=== PATIENT | male | born 1945 | race African-American/Black ===

== ENCOUNTER 2017-02-08 19:50 | Emergency (ER) | payer OTHER ==
[2017-02-08 20:01] VITALS: BMI 24.3
--- NOTE | 2017-02-08 20:03 | DR.AMS ---
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 his walking was different too" - Reviewed Nurses Notes Reviewed: Yes - Source History Provided: Patient - Mode of Arrival Mode of Arrival: Ambulatory - Timing Onset of Chief Complaint: 02/08/17 Came On: Suddenly Symptoms: Unchanged Symptom Onset: Known Onset of Symptoms Start Date: 02/08/17 Onset of Symptoms Start Time: 07:45 - Duration Duration: Constant How lon Duration: Minutes - Quality Quality: denies: Decreased Alertness, Change in Behavior, Confusion, Memory Loss , Not Eating - Severity Severity: Mild - Context Recent: None History Of: CVA, Diabetes - Associated Signs and Symptoms Associated Signs and Symptoms: Slurred Speech, Other (left facial droop) PMH - PMH Past Medical History: Yes Past Medical History: Diabetes, Hypertension, Hypothyroidism, [place] Past Surgical History: Yes Surgical History: Angioplasty/Stents - Family History History of Family Medical Conditions: Yes Family Medical History: Diabetes Mellitus, Hypertension - Social History Do you use any recreational Drugs:: No Lives With: Spouse Lives Where: Home - infectious screening In the last 2 months have you had wt loss of >10#?: NO Have you had fever, night sweats or hemotysis?: No Have you traveled outside the country in the last 6 months?: No Isolation: Standard ROS - Review of Systems Constitutional: No Symptoms Reported Eyes: No Symptoms Reported ENTM: No Symptoms Reported Respiratoy: No Symptoms Reported Cardiovascular: No Symptoms Reported Gastrointestinal/Abdominal: No Symptoms Reported Genitourinary: No Symptoms Reported Neurological: Speech Problem, Other (mouth drop) Musculoskeletal: No Symptoms Reported Integumentary: No Symptoms Reported Hematologic/Lymphatic: No Symptoms Reported Endocrine: No Symptoms Reported Psychiatric: No Symptoms Reported All Other Systems: Reviewed and Negative PE - Vitals Vital Signs: Temp Pulse Pulse Resp BP BP BP 02/08/17 21:30 65 15 150/86 02/08/17 21:10 64 18 173/93 02/08/17 21:02 64 189/100 02/08/17 20:45 67 229/123 02/08/17 20:30 74 217/115 02/08/17 20:14 65 222/108 02/08/17 19:53 97.6 F 69 18 222/112 06/29/16 16:00 121/75 121/75 06/28/16 20:00 154/79 Pulse Ox 02/08/17 21:30 97 02/08/17 21:10 96 02/08/17 21:02 96 02/08/17 20:45 97 02/08/17 20:30 97 02/08/17 20:14 96 02/08/17 19:53 96 06/29/16 16:00 06/28/16 20:00 - General Limitations: No Limitations General Appearance: Alert, In No Apparent Distress - Head Head Exam: Normal Inspection - Eyes Eye exam: Normal Appearance, EOMI. negative: Scleral Icterus, Conjunctival Injection Pupils: Regular, Round: Bilateral - ENT ENT Exam: Normal Exam, Normal Oropharynx, Mucous Membranes Moist External Ear Exam: Normal External Inspection Throat Exam: Normal Inspection, Tonsillar Erythema, Tonsillomegaly - Neck Neck Exam: Normal Inspection, Full ROM, Trachea Midline - Chest Chest Inspection: Normal Inspection - Respiratory Respiratory Exam: Normal Lung Sounds Bilat. negative: Accessory Muscle Use, Respiratory Distress - Cardiovascular Cardiovascular Exam: Regular Rate - Abdominal Exam Abdominal Exam: Normal Inspection - Extremities Extremities Exam: Normal Inspection, Full ROM - Neurological Neurological Exam: Alert Speech: Expressive Aphasia Cranial Nerve Exam: Tongue Deviation: Left Abnormal Cerebellar Function: Ataxic Gait - Psychological Psychiatric Exam: Normal Mood Expanded Psychiatric Exam: negative: Poor Eye Contact, Pressured Speech, Echolalia, Psychomotor Agitation, Delusional, Paranoid, Catatonic, Mute, Perseverating, Euphoric, Restlessness, Flight of Ideas, Loose Associations, Uncooperative, Refuses to Answer, Auditory Hallucinations, Visual Hallucinations , Confabulating, Other - Skin Skin Exam: Intact, Normal Color Course - Treatment Treatment: BP lowered with IV nitro to less than 180 and diastolic less than 90 - Consultation Called: 20:52 Consultation Comments: DR. Bhatt called per family request 2054 ROR - Labs Reviewed Result Diagrams: 02/08/17 20:54 02/08/17 20:54 Laboratory: WBC 5.5 X10^3/uL (3.6-10.0) 02/08/17 20:54 RBC 4.61 X10^6/uL (4.7-6.0) L 02/08/17 20:54 Hgb 14.4 g/dL (13.5-18.0) 02/08/17 20:54 Hct 42.2 % (42.0-54.0) 02/08/17 20:54 MCV 91.6 fL (80.0-100.0) 02/08/17 20:54 MCH 31.2 pg (27.0-34.0) 02/08/17 20:54 MCHC 34.0 g/dL (33.0-35.0) 02/08/17 20:54 RDW 14.3 % (11.6-16.5) 02/08/17 20:54 Plt Count 234 X10^3/uL (150.0-450.0) 02/08/17 20:54 MPV 7.9 fL (7.4-11.0) 02/08/17 20:54 Neut % 48.4 % (42.0-75.0) 02/08/17 20:54 Lymph % 39.8 % (21.0-51.0) 02/08/17 20:54 [place] % 9.7 % (0.0-13.0) 02/08/17 20:54 Eos % 1.7 % (0.9-2.9) 02/08/17 20:54 Baso % 0.4 % (0.2-1.0) 02/08/17 20:54 Neut # 2.7 x10^3/uL (2.2-4.8) 02/08/17 20:54 Lymph # 2.2 X10^3/uL (1.3-2.9) 02/08/17 20:54 [place] # 0.5 x10^3/uL (0.3-0.8) 02/08/17 20:54 Eos # 0.1 x10^3/uL (0.0-0.2) 02/08/17 20:54 Baso # 0.0 X10^3/uL (0.0-0.1) 02/08/17 20:54 Absolute Nucleated RBC 0.1 /100WBC 02/08/17 20:54 INR Target Range - 02/08/17 21:05 INR 0.94 (0.8-1.3) 02/08/17 21:05 PTT 32.6 SECONDS (22.9-36.5) 02/08/17 21:05 PTT Comment - 02/08/17 21:05 Fibrinogen 349 mg/dL (239-489) 02/08/17 21:05 Sodium 136 mmol/L (136-145) 02/08/17 20:54 Corrected Sodium 137 mmol/L (136-145) 02/08/17 20:54 Potassium 4.9 mmol/L (3.5-5.1) 02/08/17 20:54 Chloride 104 mmol/L (98-107) 02/08/17 20:54 Carbon Dioxide 26.1 mmol/L (21-32) 02/08/17 20:54 BUN 18 mg/dL (7-18) 02/08/17 20:54 Creatinine 1.39 mg/dL (0.70-1.30) H 02/08/17 20:54 Est GFR (MDRD) Af Amer > 60 (>60) 02/08/17 20:54 Est GFR (MDRD) Non-Af 54 (>60) L 02/08/17 20:54 Glucose 123 mg/dL (65-99) H 02/08/17 20:54 Calcium 8.4 mg/dL (8.5-10.1) L 02/08/17 20:54 Corrected Calcium TNP 02/08/17 20:54 Total Bilirubin 0.50 mg/dL (0.2-1.0) 02/08/17 20:54 AST 15 Units/L (15-37) 02/08/17 20:54 ALT 36 Units/L (12-78) 02/08/17 20:54 Alkaline Phosphatase 76 Units/L (46-116) 02/08/17 20:54 Total Protein 6.9 g/dL (6.4-8.2) 02/08/17 20:54 Albumin 3.5 g/dL (3.4-5.0) 02/08/17 20:54 Globulin 3.4 g/dL (2.5-4.5) 02/08/17 20:54 Albumin/Globulin Ratio 1.0 Ratio (1.1-2.1) L 02/08/17 20:54 Triglycerides 165 mg/dL (0-150) H 02/08/17 20:54 Cholesterol 277 mg/dL (0-200) H 02/08/17 20:54 LDL Cholesterol, Calc 153 mg/dL (0-100) H 02/08/17 20:54 HDL Cholesterol 91 mg/dL (40-60) H 02/08/17 20:54 Cholesterol/HDL Ratio 3.0 (0.0-5.0) 02/08/17 20:54 Specimen Type Clean catch urine 02/08/17 21:03 Urine Color Yellow (YELLOW) 02/08/17 21:03 Urine Appearance Hazy (CLEAR) 02/08/17 21:03 Urine pH 6.5 (5.0 - 8.0) 02/08/17 21:03 Ur Specific [place] 1.015 (1.000-1.030) 02/08/17 21:03 Urine Protein 3+ (NEGATIVE) 02/08/17 21:03 Urine Glucose (UA) 1+ (NEGATIVE) 02/08/17 21:03 Urine Ketones Negative (NEGATIVE) 02/08/17 21:03 Urine Occult Blood 1+ (NEGATIVE) 02/08/17 21:03 Urine Nitrite Negative (NEGATIVE) 02/08/17 21:03 Urine Bilirubin Negative (NEGATIVE) 02/08/17 21:03 Urine Urobilinogen Normal (NORMAL) 02/08/17 21:03 Ur Leukocyte Esterase Negative (NEGATIVE) 02/08/17 21:03 Urine RBC 0-2 /HPF (NEGATIVE) 02/08/17 21:03 Urine WBC 3-5 /HPF (NEGATIVE) 02/08/17 21:03 Ur Squamous Epith Cells Negative /HPF (NEGATIVE) 02/08/17 21:03 Urine Bacteria Negative /HPF (NEGATIVE) 02/08/17 21:03 Ur Culture Indicated? No/not indicated 02/08/17 21:03 - XRAY XRAY Interpreted by: Radiologist XRAY Findings: CT haed: chronic white matter changes, no acute findings - EKG Rate: 69 [place]: LAD Rhythm: NSR Block: None Hypertrophy: LVH ST: Nonsp Procedures - Procedure Comments Procedures: REACH protocol initiated, DR. Carias neurology [facility] consulted, recommended TPA when BP less than 180/110 then transfer to [facility] ER. Dr. Avalos called and accepted patient [facility] - Diagnosis Discharge Problem: CVA (cerebral vascular accident) Qualifiers: CVA mechanism: unspecified Qualified Code(s): I63.9 - Cerebral infarction, unspecified - Discharge Plan Disposition: 05 XFER OTHER Condition: Stable - Follow ups/Referrals Follow ups/Referrals: Alexandr Bhatt [Primary Care Provider] - 3 days - Instructions
[2017-02-08] MEDS ORDERED: CATAPRES TAB 0.2 MG PO ONE (20:05)
--- NOTE | 2017-02-08 20:24 | CT ---
HISTORY: Confusion, left-sided facial droop Study: CT brain without contrast Comparison: MRI brain October 19, 2016 Technique: Multiple axial images of the brain were obtained from the skull base to the vertex without administr ation of IV contrast. Findings: No acute intraparenchymal hemorrhage or mass can be identified. No extra-axial fluid collections ar e seen. No alteration in the attenuation of the brain parenchyma can be identified to suggest acute or subacute ischemic change. Chronic appearing basal ganglia lacunar infarcts are noted. The ventr icular system is symmetric and nondilated. There is chronic periventricular white matter disease ob served and age-appropriate generalized atrophy. IMPRESSION: 1. No acute intracranial process can be identified. 2. 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 3. Age-appropriate atrophic changes are seen. Reported By:
[2017-02-08] MEDS ORDERED: CATAPRES TAB 0.2 MG ONE (20:34)
[2017-02-08] MEDS ORDERED: NITROGLYCERIN IV PREMIX 50 MG 50 MG/250 ML BAG IV ONE (20:52)
[2017-02-08] MEDS ORDERED: NITROGLYCERIN IV PREMIX 50 MG 50 MG/250 ML BAG IV PRN (20:57)
[2017-02-08 21:04] LABS: BASOPHILS % (AUTO) 0.4 % (0.2-1.0); EOSINOPHILS # (AUTO) 0.1 x10^3/uL (0.0-0.2); EOSINOPHILS % (AUTO) 1.7 % (0.9-2.9); HEMATOCRIT 42.2 % (42.0-54.0); HEMOGLOBIN 14.4 g/dL (13.5-18.0); LYMPHOCYTES # (AUTO) 2.2 X10^3/uL (1.3-2.9); LYMPHOCYTES % (AUTO) 39.8 % (21.0-51.0); MEAN CORPUSCULAR HEMOGLOBIN 31.2 pg (27.0-34.0); MEAN CORPUSCULAR VOLUME 91.6 fL (80.0-100.0); MEAN PLATELET VOLUME 7.9 fL (7.4-11.0); MONOCYTES # (AUTO) 0.5 x10^3/uL (0.3-0.8); MONOCYTES % (AUTO) 9.7 % (0.0-13.0); NEUTROPHILS # (AUTO) 2.7 x10^3/uL (2.2-4.8); NEUTROPHILS % (AUTO) 48.4 % (42.0-75.0); PLATELET COUNT 234 X10^3/uL (150.0-450.0); RED BLOOD COUNT 4.61 X10^6/uL (4.7-6.0); RED CELL DISTRIBUTION WIDTH 14.3 % (11.6-16.5); WHITE BLOOD COUNT 5.5 X10^3/uL (3.6-10.0)
[2017-02-08 21:10] LABS: BILIRUBIN,URINE NEGATIVE (NEGATIVE); BLOOD/HEMOGLOBIN,URINE 1+ (NEGATIVE); GLUCOSE, URINE 1+ (NEGATIVE); KETONES,URINE NEGATIVE (NEGATIVE); LEUKOCYTE ESTERASE ,URINE NEGATIVE (NEGATIVE); NITRITES,URINE NEGATIVE (NEGATIVE); PH,URINE 6.5 (5.0 - 8.0); PROTEIN,URINE 3+ (NEGATIVE); UROBILINOGEN,URINE NORMAL (NORMAL)
[2017-02-08 21:16] LABS: APPEARANCE,URINE HAZY (CLEAR); BACTERIA,URINE NEGATIVE /HPF (NEGATIVE); COLOR,URINE YELLOW (YELLOW); RBC,URINE 0-2 /HPF (NEGATIVE); SQUAMOUS EPITHELIAL CELL,UR NEGATIVE /HPF (NEGATIVE)
[2017-02-08 21:18] LABS: ALANINE AMINOTRANSFERASE 36 Units/L (12-78); ALBUMIN 3.5 g/dL (3.4-5.0); ALKALINE PHOSPHATASE 76 Units/L (46-116); ASPARTATE AMINO TRANSFERASE 15 Units/L (15-37); BLOOD UREA NITROGEN 18 mg/dL (7-18); CALCIUM 8.4 mg/dL (8.5-10.1); CARBON DIOXIDE 26.1 mmol/L (21-32); CHLORIDE 104 mmol/L (98-107); CHOLESTEROL 277 mg/dL (0-200); COR NA(FOR HYPERGLY) 137 mmol/L (136-145); CREATININE 1.39 mg/dL (0.70-1.30); GLUCOSE 123 mg/dL (65-99); HDL CHOLESTEROL 91 mg/dL (40-60); SODIUM 136 mmol/L (136-145); TOTAL PROTEIN 6.9 g/dL (6.4-8.2); TRIGLYCERIDES 165 mg/dL (0-150); eGFR BLACK RACES > 60 (>60); eGFR NON BLACK RACES 54 (>60)
[2017-02-08] MEDS ORDERED: NS 1/2 1000 ML IV 1,000 ML IV ONE (21:32)
[2017-02-08] MEDS ORDERED: ACTIVASE IVP ONE (21:43)
[2017-02-08] MEDS ORDERED: ACTIVASE IV ONE (21:43)
[2017-02-08] MEDS ORDERED: NS 1/2 1000 ML IV 1,000 ML IV SCH (22:00)
[2017-02-08 22:33] VITALS: BP 132/71
== END 2017-02-08 22:45 | disposition short-term general hospital (02) ==
LOC: ER 19:50
DX: I63.8 Other cerebral infarction (principal); R47.89 Other speech disturbances
CPT/HCPCS: 36415; 51702; 70450; 80053; 80061; 81001; 85025; 85384; 85610; 85730; 93005; 93010; 93041; 96365; 96367; 96374; 96375; 99283; 99285; A4222; J2997

== ENCOUNTER → 2017-09-01 | Outpatient (CLI) | payer OTHER ==
--- NOTE | 2017-09-01 10:50 | MRI ---
MRI OF THE BRAIN WITHOUT IV CONTRAST CLINICAL INDICATION: Slurred speech TECHNIQUE: Pre-contrast T1-w, T2, and diffusion-w sequences of the brain with ADC maps. COMPARISON: 02/08/2017, MRI 10/19/2016 FINDINGS: Focal restricted diffusion in the periventricular white matter of the bilateral frontal lobes best se en on series 602 image 02/01/2027. These were not present on prior. There is no mass or mass-effect, or abnormal extra-axial fluid collection. Diffuse patchy and confluent periventricular and subcortica l T2/FLAIR signal with associated volume loss. Age-related, ex-vacuo dilatation of the ventricles and sulci. There are normal signal voids in the larger intracranial vessels. The paranasal sinuses and m astoid air cells are predominantly clear. The marrow signal pattern is within normal limits. IMPRESSION: 1. Late acute, early subacute bilateral small white matter infarct. The bilaterality suggest possible central embolic source. Echocardiogram would be recommended. Alternatively, these may represent director of counterintelligence nologically coincident lacunar infarct secondary to chronic microangiopathic disease. Reported By:
== END ==
LOC: RAD 09:21
PROVIDERS: ATTEND Internal Medicine
DX: I63.8 Other cerebral infarction (principal); R47.81 Slurred speech
CPT/HCPCS: 70551

== ENCOUNTER 2023-02-09 18:31 | Observation (INO) ==
--- NOTE | 2023-02-09 19:00 | DR.URIAD ---
HPI <Remberto De La Torre - Last Filed: 02/10/23 08:24> Time Seen Time Seen by Provider: 02/09/23 18:56 PCP Primary Care Physician: Miller Mccarthy Chief Complaint Doctors Comments: 77 y/o male seen in UC today, sent over for evaluation. Has been having cough, congestion, sore throat over the past 6 days. Spiked a fever today, 103. UC checked for covid/strep/flu, all reportedly negative. Had a CXR there, showed bilateral lower increased markings, which radiologist interpreted as possible atelectasis, pneumonia or CHF. Pt has a productive cough, white sputum. No report of vomiting, bowel or bladder complaints. No dyspneic. Appetite has been off. Pt has been weaker than usual. Chief Complaint:: TUESDAY PATIENT STATES HE STARTED HAVING A SORE THROAT, CONGESTION, COUGHING AND SNEEZING AND HAS GOTTEN WORSE. PT WAS SEEN TODAY BY PCP AND HAD A 103 TEMP IN THE OFFIC A CHEST XRAY WAS DONE REVEALING OPACITY IN BILATERAL LOWER LUNGS CONCERNING FOR PNEUMONIA. PTS PCP SENT PT TO BE SEEN IN ER FOR A POSSIBLE ADMISSION FOR IV ANTIBIOTICS. PT TESTED NEGATIVE FOR COVID, FLU, AND STREP AT URGENT CARE. Reviewed Nurses Notes Reviewed: Yes Source History Provided: Patient Mode of Arrival Mode of Arrival: Wheelchair Timing Onset of Chief Complaint: 02/03/23 PMH <Remberto De La Torre - Last Filed: 02/10/23 08:24> PMH Past Medical History: Yes Past Medical History: Diabetes and Hypertension Past Surgical History: Yes Surgical History: Angioplasty/Stents Family History History of Family Medical Conditions: No Family Medical History: Hypertension Social History Does patient currently use any type of tobacco product: No Alcohol Use: None Do you use any recreational Drugs:: No Infectious screening Have you traveled outside the country in the last 6 months?: No Isolation: Respiratory ROS <Remberto De La Torre - Last Filed: 02/10/23 08:24> Review of Systems Constitutional: Fever Eyes: No Symptoms Reported ENTM: Nose Congestion and Throat Pain Respiratoy: Productive Cough Cardiovascular: No Symptoms Reported Gastrointestinal/Abdominal: No Symptoms Reported Genitourinary: No Symptoms Reported Neurological: Weakness Musculoskeletal: No Symptoms Reported Integumentary: No Symptoms Reported Hematologic/Lymphatic: No Symptoms Reported All Other Systems: Reviewed and Negative PE <Remberto De La Torre - Last Filed: 02/10/23 08:24> Vital Signs Vitals: Vital Signs Temperature 99.1 F Pulse Rate 73 Pulse Rate 70 Pulse Rate 74 Pulse Rate 73 Pulse Rate 73 Respiratory Rate 18 Blood Pressure [Left Arm] 149/69 Blood Pressure 153/74 Blood Pressure 135/62 Blood Pressure 146/68 O2 Sat by Pulse Oximetry 97 O2 Sat by Pulse Oximetry 98 O2 Sat by Pulse Oximetry 97 O2 Sat by Pulse Oximetry 97 O2 Sat by Pulse Oximetry 96 General General Appearance: Alert, In No Apparent Distress and Other (+ weak transferring from wheelchair to bed) Eyes Eye exam: PERRL and EOMI Neck Neck Exam: Normal Inspection and Full ROM Respiratory Respiratory Exam: Normal Lung Sounds Bilat; negative Accessory Muscle Use or Respiratory Distress Cardiovascular Cardiovascular Exam: Regular Rate, Normal Rhythm and Normal Heart Sounds Abdominal Exam Abdominal Exam: Normal Bowel Sounds and Soft; negative Tenderness or Guarding Extremeties Extremities Exam: Normal Inspection; negative Edema Neurologic Neurological Exam: Alert, Oriented X3 and CN II-XII Intact; negative Motor Sensory Deficit Skin Skin Exam: Warm and Dry <Oly Ramirez - Last Filed: 02/10/23 06:31> Vital Signs Vitals: Vital Signs Temperature 99.1 F Pulse Rate 73 Pulse Rate 70 Pulse Rate 74 Pulse Rate 73 Pulse Rate 73 Respiratory Rate 18 Blood Pressure [Left Arm] 149/69 Blood Pressure 153/74 Blood Pressure 135/62 Blood Pressure 146/68 O2 Sat by Pulse Oximetry 97 O2 Sat by Pulse Oximetry 98 O2 Sat by Pulse Oximetry 97 O2 Sat by Pulse Oximetry 97 O2 Sat by Pulse Oximetry 96 COURSE <Remberto De La Torre - Last Filed: 02/10/23 08:24> Treatment Treatment: 77 y/o male presents with worsening URI symptoms over past 6 days. W/u intiated. Pt given IV fluids. 2010 - CXR here without acute abnormalities, no obvious infiltrate, CHF. Pt will be signed over to my relief Dr Jorge RUBY. <Oly Ramirez - Last Filed: 02/10/23 06:31> Treatment Treatment: 77 y/o male presents with worsening URI symptoms over past 6 days. W/u intiated. Pt given IV fluids. 2010 - CXR here without acute abnormalities, no obvious infiltrate, CHF. Pt will be signed over to my relief MD, Dr Jorge. 21:[address] Dahl's service for further evaluation for RITA and RSV. ROR <Remberto De La Torre - Last Filed: 02/10/23 08:24> Labs Reviewed Result Diagrams: 02/10/23 04:25 02/10/23 04:25 Laboratory: WBC 6.5 X10^3/uL (3.6-10.0) 02/09/23 19:35 RBC 4.33 X10^6/uL (4.7-6.0) L 02/09/23 19:35 Hgb 13.4 g/dL (13.5-18.0) L 02/09/23 19:35 Hct 39.6 % (42.0-54.0) L 02/09/23 19:35 MCV 91.5 fL (80.0-100.0) 02/09/23 19:35 MCH 31.1 pg (27.0-34.0) 02/09/23 19:35 MCHC 34.0 g/dL (33.0-35.0) 02/09/23 19:35 RDW 14.4 % (11.6-16.5) 02/09/23 19:35 Plt Count 260 X10^3/uL (150.0-450.0) 02/09/23 19:35 MPV 7.8 fL (7.4-11.0) 02/09/23 19:35 Neut % (Auto) 74.4 % (42.0-75.0) 02/09/23 19:35 Lymph % (Auto) 14.0 % (21.0-51.0) L 02/09/23 19:35 [place] % (Auto) 6.8 % (0.0-13.0) 02/09/23 19:35 Eos % (Auto) 2.2 % (0.9-2.9) 02/09/23 19:35 Baso % (Auto) 2.6 % (0.2-1.0) H 02/09/23 19:35 Neut # (Auto) 4.8 x10^3/uL (2.2-4.8) 02/09/23 19:35 Lymph # (Auto) 0.9 X10^3/uL (1.3-2.9) L 02/09/23 19:35 [place] # (Auto) 0.4 x10^3/uL (0.3-0.8) 02/09/23 19:35 Eos # (Auto) 0.1 x10^3/uL (0.0-0.2) 02/09/23 19:35 Baso # (Auto) 0.2 X10^3/uL (0.0-0.1) H 02/09/23 19:35 Absolute Nucleated RBC 0.0 /100WBC 02/09/23 19:35 Sodium 139 mmol/L (136-145) 02/09/23 19:35 Corrected Sodium 143 mmol/L (136-145) 02/09/23 19:35 Potassium 3.8 mmol/L (3.5-5.1) 02/09/23 19:35 Chloride 102 mmol/L (98-107) 02/09/23 19:35 Carbon Dioxide 24.2 mmol/L (21-32) 02/09/23 19:35 BUN 27 mg/dL (7-18) H 02/09/23 19:35 Creatinine 2.05 mg/dL (0.70-1.30) H 02/09/23 19:35 Est GFR (MDRD) Af Amer 41 (>60) L 02/09/23 19:35 Est GFR (MDRD) Non-Af 34 (>60) L 02/09/23 19:35 Glucose 257 mg/dL (65-99) H 02/09/23 19:35 Lactic Acid 2.3 mmol/L (0.4-2.0) H 02/09/23 19:35 Calcium 8.4 mg/dL (8.5-10.1) L 02/09/23 19:35 Corrected Calcium TNP 02/09/23 19:35 Total Bilirubin 0.80 mg/dL (0.2-1.0) 02/09/23 19:35 AST 19 Units/L (15-37) 02/09/23 19:35 ALT 34 Units/L (12-78) 02/09/23 19:35 Alkaline Phosphatase 83 Units/L (46-116) 02/09/23 19:35 Troponin I High Sens 9.9 ng/L (4.0-60.0) 02/09/23 19:35 B-Natriuretic Peptide 71.9 pg/mL (0-79) 02/09/23 19:35 Total Protein 7.0 g/dL (6.4-8.2) 02/09/23 19:35 Albumin 3.7 g/dL (3.4-5.0) 02/09/23 19:35 Globulin 3.3 g/dL (2.5-4.5) 02/09/23 19:35 Albumin/Globulin Ratio 1.1 Ratio (1.1-2.1) 02/09/23 19:35 Lipase 171 Units/L (73-393) 02/09/23 19:35 SARS-CoV-2 (PCR) Negative (NEGATIVE) 02/09/23 19:48 Influenza Type A (PCR) Negative (NEGATIVE) 02/09/23 19:48 Influenza Type B (PCR) Negative (NEGATIVE) 02/09/23 19:48 RSV (PCR) Positive (NEGATIVE) A 02/09/23 19:48 <Oly Ramirez - Last Filed: 02/10/23 06:31> Labs Reviewed Laboratory: WBC 6.5 X10^3/uL (3.6-10.0) 02/09/23 19:35 RBC 4.33 X10^6/uL (4.7-6.0) L 02/09/23 19:35 Hgb 13.4 g/dL (13.5-18.0) L 02/09/23 19:35 Hct 39.6 % (42.0-54.0) L 02/09/23 19:35 MCV 91.5 fL (80.0-100.0) 02/09/23 19:35 MCH 31.1 pg (27.0-34.0) 02/09/23 19:35 MCHC 34.0 g/dL (33.0-35.0) 02/09/23 19:35 RDW 14.4 % (11.6-16.5) 02/09/23 19:35 Plt Count 260 X10^3/uL (150.0-450.0) 02/09/23 19:35 MPV 7.8 fL (7.4-11.0) 02/09/23 19:35 Neut % (Auto) 74.4 % (42.0-75.0) 02/09/23 19:35 Lymph % (Auto) 14.0 % (21.0-51.0) L 02/09/23 19:35 [place] % (Auto) 6.8 % (0.0-13.0) 02/09/23 19:35 Eos % (Auto) 2.2 % (0.9-2.9) 02/09/23 19:35 Baso % (Auto) 2.6 % (0.2-1.0) H 02/09/23 19:35 Neut # (Auto) 4.8 x10^3/uL (2.2-4.8) 02/09/23 19:35 Lymph # (Auto) 0.9 X10^3/uL (1.3-2.9) L 02/09/23 19:35 [place] # (Auto) 0.4 x10^3/uL (0.3-0.8) 02/09/23 19:35 Eos # (Auto) 0.1 x10^3/uL (0.0-0.2) 02/09/23 19:35 Baso # (Auto) 0.2 X10^3/uL (0.0-0.1) H 02/09/23 19:35 Absolute Nucleated RBC 0.0 /100WBC 02/09/23 19:35 Sodium 139 mmol/L (136-145) 02/09/23 19:35 Corrected Sodium 143 mmol/L (136-145) 02/09/23 19:35 Potassium 3.8 mmol/L (3.5-5.1) 02/09/23 19:35 Chloride 102 mmol/L (98-107) 02/09/23 19:35 Carbon Dioxide 24.2 mmol/L (21-32) 02/09/23 19:35 BUN 27 mg/dL (7-18) H 02/09/23 19:35 Creatinine 2.05 mg/dL (0.70-1.30) H 02/09/23 19:35 Est GFR (MDRD) Af Amer 41 (>60) L 02/09/23 19:35 Est GFR (MDRD) Non-Af 34 (>60) L 02/09/23 19:35 Glucose 257 mg/dL (65-99) H 02/09/23 19:35 Lactic Acid 2.3 mmol/L (0.4-2.0) H 02/09/23 19:35 Calcium 8.4 mg/dL (8.5-10.1) L 02/09/23 19:35 Corrected Calcium TNP 02/09/23 19:35 Total Bilirubin 0.80 mg/dL (0.2-1.0) 02/09/23 19:35 AST 19 Units/L (15-37) 02/09/23 19:35 ALT 34 Units/L (12-78) 02/09/23 19:35 Alkaline Phosphatase 83 Units/L (46-116) 02/09/23 19:35 Troponin I High Sens 9.9 ng/L (4.0-60.0) 02/09/23 19:35 B-Natriuretic Peptide 71.9 pg/mL (0-79) 02/09/23 19:35 Total Protein 7.0 g/dL (6.4-8.2) 02/09/23 19:35 Albumin 3.7 g/dL (3.4-5.0) 02/09/23 19:35 Globulin 3.3 g/dL (2.5-4.5) 02/09/23 19:35 Albumin/Globulin Ratio 1.1 Ratio (1.1-2.1) 02/09/23 19:35 Lipase 171 Units/L (73-393) 02/09/23 19:35 SARS-CoV-2 (PCR) Negative (NEGATIVE) 02/09/23 19:48 Influenza Type A (PCR) Negative (NEGATIVE) 02/09/23 19:48 Influenza Type B (PCR) Negative (NEGATIVE) 02/09/23 19:48 RSV (PCR) Positive (NEGATIVE) A 02/09/23 19:48 Opioid <Remberto De La Torre - Last Filed: 02/10/23 08:24> Opioid Risk Tool Age (Chip box if 16-45): No History of Preadolescent Sexual Abuse: No Total: 0 Total Score Risk Category: Low Risk Copyright: Raul CASTILLO predicting aberrant behaviors <Oly Ramirez - Last Filed: 02/10/23 06:31> Opioid Risk Tool Total: 0 Total Score Risk Category: Low Risk Discharge Plan Diagnosis Discharge Problem: RITA (acute kidney injury), Respiratory syncytial virus (RSV) Discharge Plan Patient Disposition: 09 ADMITTED INPATIENT Condition: Stable
[2023-02-09 19:57] LABS: BASOPHILS # (AUTO) 0.2 X10^3/uL (0.0-0.1); BASOPHILS % (AUTO) 2.6 % (0.2-1.0); EOSINOPHILS # (AUTO) 0.1 x10^3/uL (0.0-0.2); EOSINOPHILS % (AUTO) 2.2 % (0.9-2.9); HEMATOCRIT 39.6 % (42.0-54.0); HEMOGLOBIN 13.4 g/dL (13.5-18.0); LYMPHOCYTES # (AUTO) 0.9 X10^3/uL (1.3-2.9); MEAN CORPUSCULAR HEMOGLOBIN 31.1 pg (27.0-34.0); MEAN CORPUSCULAR VOLUME 91.5 fL (80.0-100.0); MEAN PLATELET VOLUME 7.8 fL (7.4-11.0); MONOCYTES # (AUTO) 0.4 x10^3/uL (0.3-0.8); MONOCYTES % (AUTO) 6.8 % (0.0-13.0); NEUTROPHILS # (AUTO) 4.8 x10^3/uL (2.2-4.8); NEUTROPHILS % (AUTO) 74.4 % (42.0-75.0); PLATELET COUNT 260 X10^3/uL (150.0-450.0); RED BLOOD COUNT 4.33 X10^6/uL (4.7-6.0); RED CELL DISTRIBUTION WIDTH 14.4 % (11.6-16.5); WHITE BLOOD COUNT 6.5 X10^3/uL (3.6-10.0)
[2023-02-09 20:12] LABS: ALANINE AMINOTRANSFERASE 34 Units/L (12-78); ALBUMIN 3.7 g/dL (3.4-5.0); ALKALINE PHOSPHATASE 83 Units/L (46-116); ASPARTATE AMINO TRANSFERASE 19 Units/L (15-37); BLOOD UREA NITROGEN 27 mg/dL (7-18); CALCIUM 8.4 mg/dL (8.5-10.1); CARBON DIOXIDE 24.2 mmol/L (21-32); CHLORIDE 102 mmol/L (98-107); COR NA(FOR HYPERGLY) 143 mmol/L (136-145); CREATININE 2.05 mg/dL (0.70-1.30); GLUCOSE 257 mg/dL (65-99); LIPASE 171 Units/L (73-393); POTASSIUM 3.8 mmol/L (3.5-5.1); SODIUM 139 mmol/L (136-145); eGFR NON BLACK RACES 34 (>60)
[2023-02-09 20:13] LABS: LACTIC ACID 2.3 mmol/L (0.4-2.0)
[2023-02-09] MEDS ORDERED: NS 1,000 ML IV 1,000 ML IV ONE (20:41)
[2023-02-09] MEDS ORDERED: NS 1,000 ML IV 1,000 ML ONE (20:42)
[2023-02-09] MEDS ORDERED: LEVAQUIN PREMIX IV 750 MG 750 MG/150 ML BAG IV ONE ×2 (21:30→21:31)
[2023-02-09] MEDS ORDERED: FIORICET #3 W/CODEINE CAP PO PRN (23:26)
[2023-02-09] MEDS ORDERED: NovoLIN R (or HumuLIN R) SUBCUT PRN (23:26)
[2023-02-09] MEDS ORDERED: TYLENOL #3 TAB (W/CODEINE) PO PRN (23:26)
[2023-02-10 01:13] VITALS: BMI 26.4
[2023-02-10 01:30] LABS: BILIRUBIN,URINE NEGATIVE (NEGATIVE); BLOOD/HEMOGLOBIN,URINE NEGATIVE (NEGATIVE); GLUCOSE, URINE 4+ (NEGATIVE); KETONES,URINE NEGATIVE (NEGATIVE); LEUKOCYTE ESTERASE ,URINE NEGATIVE (NEGATIVE); NITRITES,URINE NEGATIVE (NEGATIVE); PROTEIN,URINE 1+ (NEGATIVE); UROBILINOGEN,URINE NORMAL (NORMAL)
[2023-02-10 01:37] LABS: APPEARANCE,URINE CLEAR (CLEAR); COLOR,URINE YELLOW (YELLOW)
[2023-02-10 01:38] LABS: BACTERIA,URINE NEGATIVE /HPF (NEGATIVE); HYALINE CASTS, URINE RARE /LPF (NEGATIVE); RBC,URINE NONE SEEN /HPF (0-3); SQUAMOUS EPITHELIAL CELL,UR NEGATIVE /HPF (NEGATIVE)
[2023-02-10 05:16] LABS: BASOPHILS % (AUTO) 0.4 % (0.2-1.0); EOSINOPHILS # (AUTO) 0.1 x10^3/uL (0.0-0.2); EOSINOPHILS % (AUTO) 1.4 % (0.9-2.9); HEMATOCRIT 37.5 % (42.0-54.0); HEMOGLOBIN 12.9 g/dL (13.5-18.0); LYMPHOCYTES # (AUTO) 1.1 X10^3/uL (1.3-2.9); LYMPHOCYTES % (AUTO) 20.6 % (21.0-51.0); MEAN CORPUSCULAR HEMOGLOBIN 31.1 pg (27.0-34.0); MEAN CORPUSCULAR HGB CONC 34.4 g/dL (33.0-35.0); MEAN CORPUSCULAR VOLUME 90.6 fL (80.0-100.0); MONOCYTES % (AUTO) 17.1 % (0.0-13.0); NEUTROPHILS # (AUTO) 3.4 x10^3/uL (2.2-4.8); NEUTROPHILS % (AUTO) 60.5 % (42.0-75.0); PLATELET COUNT 260 X10^3/uL (150.0-450.0); RED BLOOD COUNT 4.14 X10^6/uL (4.7-6.0); RED CELL DISTRIBUTION WIDTH 14.1 % (11.6-16.5); WHITE BLOOD COUNT 5.6 X10^3/uL (3.6-10.0)
[2023-02-10 05:33] LABS: ALANINE AMINOTRANSFERASE 32 Units/L (12-78); ALBUMIN 3.3 g/dL (3.4-5.0); ALKALINE PHOSPHATASE 73 Units/L (46-116); ASPARTATE AMINO TRANSFERASE 20 Units/L (15-37); BLOOD UREA NITROGEN 21 mg/dL (7-18); CALCIUM 8.2 mg/dL (8.5-10.1); CARBON DIOXIDE 26.6 mmol/L (21-32); CHLORIDE 105 mmol/L (98-107); COR CA(FOR HYPOALB) 8.8 mg/dL (8.5-10.1); GLUCOSE 95 mg/dL (65-99); POTASSIUM 3.5 mmol/L (3.5-5.1); SODIUM 141 mmol/L (136-145); TOTAL PROTEIN 6.5 g/dL (6.4-8.2); eGFR NON BLACK RACES 42 (>60)
--- NOTE | 2023-02-10 06:17 | RAD ---
PROCEDURE: Chest X-ray 1 View .HISTORY: Sore throat and cough with congestion.TECHNIQUE: AP view .COMPARISON: None .TECHNICAL QUALITY: Satisfactory .FINDINGS:Normal size heart .Mediastinum and hilar regions show no masses or lymphadenopathy .Normal central vascularity .No pulmonary consolidation, masses, pleural fluid, or pneumothorax .No acute bony abnormality .IMPRESSION:No active cardiopulmonary disease .Electronically signed by: Robin Young (Feb 10, 2023 06:15:40)
[2023-02-10] MEDS ORDERED: CONSULT PHARMACY - POTASSIUM & MAGNESIUM XX SCH (08:00)
[2023-02-10] MEDS: LOPRESSOR TAB 50 MG PO SCH ×2 (08:40→21:03)
[2023-02-10] MEDS: COZAAR PO SCH (08:41)
[2023-02-10] MEDS: CATAPRES TAB 0.2 MG PO SCH ×2 (08:41→21:02)
[2023-02-10] MEDS: MILK OF MAGNESIA PO SCH (08:41)
[2023-02-10] MEDS: ASPIRIN PO SCH (08:41)
[2023-02-10] MEDS: NORVASC TAB 10 MG PO SCH (08:41)
[2023-02-10] MEDS ORDERED: K-DUR TAB 20 MEQ PO SCH (09:00)
[2023-02-10] MEDS ORDERED: PATIENT'S HOME MEDICATION (Amlodipine Besylate 10 MG Tab) PO SCH (09:00)
[2023-02-10] MEDS ORDERED: CLONIDINE HCL 0.2 MG PO SCH (09:00)
[2023-02-10] MEDS ORDERED: METOPROLOL TARTRATE 50 MG PO SCH (09:00)
[2023-02-10] MEDS: LOVENOX INJ 30 MG SYR SC SCH (09:30)
[2023-02-10] MEDS: NS 1,000 ML IV 1,000 ML IV SCH (10:18)
[2023-02-10] MEDS: CIPRO IV 400 MG PREMIX* 400 MG/200 ML IV.SOLN. IV SCH ×2 (10:18→21:02)
[2023-02-10] MEDS: XOPENEX 1.25 MG/3 ML NEBULE NEB SCH ×4 (10:22→21:02)
[2023-02-10] MEDS: FLONASE NASAL SPRAY ENOSTRIL SCH (14:21)
[2023-02-10] MEDS: VITAMIN C PO SCH (15:35)
[2023-02-10] MEDS: PLAVIX PO SCH (15:35)
[2023-02-10] MEDS: SYNTHROID 100 mcg TAB PO SCH (15:35)
--- NOTE | 2023-02-10 19:07 | DR.H&P ---
H&P - History & Physical for Day of: H&P Date: 02/09/23 - Chief Complaint Chief Complaint: COUGH, CONGESTION, SORE THROAT, FEVER - History of Present Illness History of Present Illness: IS A 77 YEAR OLD PATIENT OF OURS. HE HAS A PMH OF TYPE 2 DIABETES, HTN, CAD, [place], TIA, CARDIAC STENTS, HX OF PROSTATE CANCER. HE PRESENTED TO THE ER WITH COMPLAINTS OF COUGH, CONGESTION, SORE THROAT, AND FEVER. HE REPORTS THAT HIS SYMPTOMS STARTED ABOUT A WEEK AGO. HE REPORTS THAT HIS COUGH IS PRODUCTIVE OF WHITE SPUTUM. HE WAS SEEN IN OUR OFFICE AT THE BEGINNING OF THE WEEK. HE WAS TESTED FOR COVID-19, INFLUENZA, AND RSV. ALL WERE NEGATIVE. A CHEST XRAY WAS ALSO OBAINED AND THAT TIME AND REVEALED AN OPACITY IN BILATERAL LOWER LUNGS CONCERNING FOR PNEUMONIA. AFTER SYMPTOMS PERSISTED, HE WAS INSTRUCTED TO COME TO THE ER FOR EVALUATION. ON ARRIVAL TO THE HOSPITAL, VITALS WERE: 99.1-73-18-96%-146/68. LABS WERE OBTAINED. WBC 6.5, RBC 4.33, HGB 13.4, HCT 39.6, PLT COUNT 260, SODIUM 139, POTASSIUM 3.8, CHLORIDE 102, CARBON DIOXIDE 24.2, BUN 27, CREATININE 2.05, GLUCOSE 257, LACTIC ACID 2.3, CALCIUM 8.4, AST 19, ALT 34, ALK PHOS 83, TROPONIN 7.0, BNP 71.9, TOTAL PROTEIN 7.0, ALBUMIN 3.7, LIPASE 171. URINALYSIS WAS OBTAINED AND WAS UNREMARKABLE. COVID AND INFLUENZA WERE NEGATIVE. RSV WAS POSITIVE. BLOOD CULTURES WERE SET UP. A CHEST XRAY WAS OBTAINED AND REVEALED: No active cardiopulmonary disease. IN THE ER, HE WAS GIVEN A NORMAL SALINE 1 LITER BOLUS, LEVAQUIN 750MG IV X 1, K-DUR 20MEQ PO X 1. HE WAS ADMITTED TO THE HOSPITAL FOR FURTHER EVALUATION AND TREATMENT OF ACUTE KIDNEY INJURY, ACUTE BRONCHITIS DUE TO RSV, TYPE 2 DIABETES, HTN. HE WAS STARTED ON NORMAL SALINE AT 75 ML/HR, CIPRO 400MG IV Q12H, XOPENEX NEBS QID, OTBS ACHS, HUMULIN R SLIDING SCALE,. HIS HOME MEDICATIONS OF TYLENOL #3, NORVASC, VITAMIN C, ASPIRIN, LIPITOR, VITAMIN D3, CATAPRES, PLAVIX, COLACE, FLONASE, GABAPENTIN, LEVOTHYROXINE, LOSARTAN, MAGNESIUM OXIDE, METOPROLOL, TRAZODONE. OTHERWISE, WE WILL FOLLOW-UP WITH AM LABS AND CHEST XRAY AND CONTINUE TO MONITOR. TIME SPENT ON CLINICAL ASSESSMENT, REVIEWING LABS AND IMAGING, DECISION MAKING, AND DOCUMENTATION GREATER THAN 75 MINUTES. - Past Medical History Past Medical History: Coronary Artery Disease, Diabetes, Dyslipidemia, Hypertension Additional Medical History: BPH - Past Surgical History Surgical History: Angioplasty/Stents - Family History Family Medical History: Diabetes Mellitus, Hypertension - Social History Does patient currently use any type of tobacco product: No Does any household member use tobacco: No Alcohol Use: None Drug Use: None - Review of Systems Constitutional: Fever, Weakness Eyes: No Symptoms Reported ENT: Throat Pain Respiratory: Cough, Shortness of Breath, SOB with Excertion Cardiovascular: No Symptoms Reported Gastrointestinal: No Symptoms Reported Genitourinary: No Symptoms Reported Musculoskeletal: No Symptoms Reported Skin: No Symptoms Reported Neurological: Weakness - Physical Exam Vital Signs: Vital Signs Temperature 98.7 F Temperature 98.8 F Pulse Rate [Apical] 62 Pulse Rate [Apical] 70 Pulse Rate [Apical] 56 Pulse Rate [Apical] 59 Pulse Rate [Apical] 63 Pulse Rate [Apical] 58 Pulse Rate [Apical] 60 Pulse Rate [Apical] 61 Pulse Rate 64 Respiratory Rate 17 Respiratory Rate 20 Respiratory Rate 18 Respiratory Rate 16 Respiratory Rate 18 Respiratory Rate 19 Respiratory Rate 17 Respiratory Rate 20 Blood Pressure [Left Arm] 118/63 Blood Pressure [Left Arm] 138/62 Blood Pressure [Left Arm] 109/59 Blood Pressure [Left Arm] 100/58 Blood Pressure [Left Arm] 99/57 Blood Pressure [Left Arm] 101/59 Blood Pressure [Left Arm] 95/55 Blood Pressure [Left Arm] 109/60 O2 Sat by Pulse Oximetry 95 O2 Sat by Pulse Oximetry 94 O2 Sat by Pulse Oximetry 94 O2 Sat by Pulse Oximetry 95 O2 Sat by Pulse Oximetry 94 O2 Sat by Pulse Oximetry 95 O2 Sat by Pulse Oximetry 94 O2 Sat by Pulse Oximetry 96 O2 Sat by Pulse Oximetry 96 Oriented: Normal Eyes: Normal Ear: Normal Nose: Normal Throat: Normal Respiratory: Diminished Throughout Cardiovascular: Normal : Normal Auscultation: Bowel Sounds: Normal Palpation: Normal Tenderness: Normal Skin: Normal Musculoskeletal: Normal Psychiatric: Normal Mood Description: Calm Affect: Normal Speech Pattern: Clear - Assessment/Plan (1) RITA (acute kidney injury) Status: Acute Plan: ADMIT, NORMAL SALINE AT 75 ML/HR, CIPRO 400MG IV Q12H, XOPENEX NEBS QID, OTBS ACHS, HUMULIN R SLIDING SCALE. HIS HOME MEDICATIONS OF TYLENOL #3, NORVASC, VITAMIN C, ASPIRIN, LIPITOR, VITAMIN D3, CATAPRES, PLAVIX, COLACE, FLONASE, GABAPENTIN, LEVOTHYROXINE, LOSARTAN, MAGNESIUM OXIDE, METOPROLOL, TRAZODONE. (2) Acute bronchitis Qualifiers: Bronchitis organism: RSV Qualified Code(s): J20.5 - Acute bronchitis due to respiratory syncytial virus Status: Acute (3) BPH (benign prostatic hyperplasia) Qualifiers: Lower urinary tract symptom presence: symptoms absent Qualified Code(s): N40.0 - Benign prostatic hyperplasia without lower urinary tract symptoms Status: Chronic (4) Coronary artery disease Qualifiers: Coronary Disease-Associated Artery/Lesion type: [place] artery [place] vs. transplanted heart: [place] heart Associated angina: without angina Qualified Code(s): I25.10 - Atherosclerotic heart disease of [place] coronary artery without angina pectoris Status: Chronic (5) Diabetes mellitus, type 2 Qualifiers: Diabetes mellitus halfway insulin use: with halfway use Diabetes mellitus complication status: with hyperglycemia Qualified Code(s): E11.65 - Type 2 diabetes mellitus with hyperglycemia; Z79.4 - half-way (current) use of insulin Status: Chronic (6) Hypertension Qualifiers: Hypertension type: primary hypertension Qualified Code(s): I10 - Essential (primary) hypertension Status: Chronic - Allergies Allergies/Adverse Reactions: Allergies Allergy/AdvReac Type Severity Reaction Status Date / Time Penicillins Allergy Verified 08/17/19 11:16 - Medications Home Medications: Home Medications Medication Instructions Recorded Confirmed alfuzosin 10 mg tablet,extended 10 mg PO QDAY 02/10/23 02/10/23 release 24 hr amlodipine 10 mg tablet 10 mg PO QDAY 02/10/23 02/10/23 ascorbic acid (vitamin C) 500 mg 500 mg PO QDAY 02/10/23 02/10/23 tablet (Vitamin C) atorvastatin 80 mg tablet 40 mg PO QDAY 02/10/23 02/10/23 cholecalciferol (vitamin D3) 50 50 mcg PO QDAY 02/10/23 02/10/23 mcg (2,000 unit) tablet clopidogrel 75 mg tablet 75 mg PO QDAY 02/10/23 02/10/23 cyanocobalamin (vitamin B-12) 1,000 mcg PO QWEEK 02/10/23 02/10/23 1,000 mcg tablet empagliflozin 25 mg tablet 12.5 mg PO QAM 02/10/23 02/10/23 gabapentin 100 mg capsule 100 mg PO QHS 02/10/23 02/10/23 glipizide 5 mg tablet 2.5 mg PO 02/10/23 02/10/23 glipizide 5 mg tablet 10 mg PO QDAY 02/10/23 02/10/23 hydrochlorothiazide 25 mg tablet 12.5 mg PO QAM 02/10/23 02/10/23 levothyroxine 100 mcg tablet 100 mcg PO QDAY 02/10/23 02/10/23 losartan 100 mg tablet 50 mg PO QDAY 02/10/23 02/10/23 metoprolol tartrate 50 mg tablet 50 mg PO BID 02/10/23 02/10/23
[2023-02-10] MEDS: COLACE CAP 100 MG PO SCH (21:02)
[2023-02-10] MEDS: LIPITOR TAB 40 MG PO SCH (21:03)
[2023-02-10] MEDS: DESYREL PO SCH (21:03)
[2023-02-10] MEDS: NEURONTIN CAP 100 MG PO SCH (21:04)
[2023-02-11] MEDS ORDERED: ROBITUSSIN DM PO PRN (02:22)
[2023-02-11] MEDS ORDERED: ROBITUSSIN DM ONE (02:23)
[2023-02-11] MEDS: NS 1,000 ML IV 1,000 ML IV SCH ×3 (02:30→15:11)
[2023-02-11 05:13] LABS: BASOPHILS % (AUTO) 0.3 % (0.2-1.0); EOSINOPHILS # (AUTO) 0.2 x10^3/uL (0.0-0.2); EOSINOPHILS % (AUTO) 3.1 % (0.9-2.9); HEMATOCRIT 35.4 % (42.0-54.0); HEMOGLOBIN 12.2 g/dL (13.5-18.0); LYMPHOCYTES # (AUTO) 1.6 X10^3/uL (1.3-2.9); LYMPHOCYTES % (AUTO) 30.6 % (21.0-51.0); MEAN CORPUSCULAR HEMOGLOBIN 31.1 pg (27.0-34.0); MEAN CORPUSCULAR HGB CONC 34.3 g/dL (33.0-35.0); MEAN CORPUSCULAR VOLUME 90.4 fL (80.0-100.0); MEAN PLATELET VOLUME 7.8 fL (7.4-11.0); MONOCYTES % (AUTO) 20.4 % (0.0-13.0); NEUTROPHILS # (AUTO) 2.3 x10^3/uL (2.2-4.8); NEUTROPHILS % (AUTO) 45.6 % (42.0-75.0); PLATELET COUNT 243 X10^3/uL (150.0-450.0); RED BLOOD COUNT 3.91 X10^6/uL (4.7-6.0); RED CELL DISTRIBUTION WIDTH 14.4 % (11.6-16.5); WHITE BLOOD COUNT 5.1 X10^3/uL (3.6-10.0)
[2023-02-11 05:28] LABS: BAND NEUTROPHILS % 4 % (0-10); PLATELET MORPHOLOGY COMMENT NORMAL (NORMAL)
[2023-02-11 05:33] LABS: ALBUMIN 2.9 g/dL (3.4-5.0); CALCIUM 7.9 mg/dL (8.5-10.1); CARBON DIOXIDE 25.5 mmol/L (21-32); COR CA(FOR HYPOALB) 8.8 mg/dL (8.5-10.1); CREATININE 1.65 mg/dL (0.70-1.30); MAGNESIUM 2.1 mg/dL (2.0-2.9); POTASSIUM 4.1 mmol/L (3.5-5.1); TOTAL PROTEIN 5.9 g/dL (6.4-8.2)
--- NOTE | 2023-02-11 05:55 | RAD ---
HISTORYShortness of breathSTUDYCHEST, 1 [id number]/2023FINDINGSThe trachea is midline. The cardiac silhouette is enlarged with a tortuous thoracic aorta . The lungs are clear without focal infiltrate or effusion. The bony thorax is unremarkable.IMPRESSIONNo acute cardiopulmonary disease.Electronically signed by: SYLVIA ESTES (Feb 11, 2023 05:54:04)
[2023-02-11] MEDS: XOPENEX 1.25 MG/3 ML NEBULE NEB SCH ×4 (08:30→20:45)
[2023-02-11] MEDS: CIPRO IV 400 MG PREMIX* 400 MG/200 ML IV.SOLN. IV SCH ×2 (08:45→20:29)
[2023-02-11] MEDS: LOVENOX INJ 30 MG SYR SC SCH (08:45)
[2023-02-11] MEDS: VITAMIN D3 25 mcg (1,000 UNITS) PO SCH (08:46)
[2023-02-11] MEDS: PLAVIX PO SCH (08:46)
[2023-02-11] MEDS: ASPIRIN PO SCH (08:46)
[2023-02-11] MEDS: MILK OF MAGNESIA PO SCH (08:46)
[2023-02-11] MEDS: CATAPRES TAB 0.2 MG PO SCH ×2 (08:46→20:29)
[2023-02-11] MEDS: NORVASC TAB 10 MG PO SCH (08:46)
[2023-02-11] MEDS: SYNTHROID 100 mcg TAB PO SCH (08:46)
[2023-02-11] MEDS: LOPRESSOR TAB 50 MG PO SCH (08:46)
[2023-02-11] MEDS: COZAAR PO SCH (08:46)
[2023-02-11] MEDS: VITAMIN C PO SCH (08:46)
[2023-02-11] MEDS: FLONASE NASAL SPRAY ENOSTRIL SCH (08:47)
[2023-02-11] MEDS: PATIENT'S HOME MEDICATION (Alfuzosin 10 mg Tablet Extended Release 24 Hr) PO SCH (10:06)
[2023-02-11] MEDS: COLACE CAP 100 MG PO SCH (20:29)
[2023-02-11] MEDS: LOPRESSOR TAB 25 MG PO SCH (20:29)
[2023-02-11] MEDS: LIPITOR TAB 40 MG PO SCH (20:29)
[2023-02-11] MEDS: NEURONTIN CAP 100 MG PO SCH (20:29)
[2023-02-11] MEDS: DESYREL PO SCH (20:29)
--- NOTE | 2023-02-11 22:05 | PCM.PROG ---
Progress Note - Progress Note for Day of Date of Exam: 02/11/23 - Subjective Subjective: IS CURRENTLY OBSERVATION STATUS FOR TREATMENT OF ACUTE KIDNEY INJURY AND ACUTE BRONCHITIS DUE TO RSV. HE HAS A PMH OF TYPE 2 DIABETES, HTN, CAD, [place], TIA, CARDIAC STENTS, HX OF PROSTATE CANCER. TODAY, HE IS ALERT AND ORIENTED, LYING IN BED ON MORNING ROUNDS. HE CONTINUES TO COMPLAIN OF A PRODUCTIVE COUGH, SHORTNESS OF BREATH AT TIMES, AND GENERALIZED WEAKNESS. PATIENTS SPOUSE ALSO REPORTS THAT HE HAS HAD PERIODS OF CONFUSION. SHE REPORTS THAT WEAKNESS AND CONFUSION HAS BEEN ONGOING FOR THE PAST FEW WEEKS. ON EXAMINATION, HEART IS REGULAR IN RATE AND RHYTHM. BILATERAL LUNGS ARE NOTED WITH DIMINISHED LUNG SOUNDS THROUGHOUT. ABDOMEN IS ROUND, SOFT, AND NON-TENDER WITH NORMAL BOWEL SOUNDS NOTED IN ALL QUADRANTS. GOOD MOVEMENT NOTED TO BILATERAL LOWER EXTREMITIES WITH NO EDEMA NOTED. HIS VITALS THIS MORNING ARE: 98.3-60-17-93%-151/71. HE HAS BEEN BRADYCARDIC THROUGHOUT THE NIGHT. HR HAS BEEN IN THE 40s AND 50s. LABS WERE OBTAINED. WBC 5.1, RBC 3.91, HGB 12.2, HCT 35.4, PLT COUNT 243, SODIUM 139, POTASSIUM 4.1, CHLORIDE 105, CARBON DIOXIDE 25.5, BUN 22, CREATININE 1.65, GLUCOSE 136, CALCIUM 7.9, AST 22, ALT 26, ALK PHOS 65, TOTAL PROTEIN 5.9, ALBUMIN 2.9. BLOOD CULTURES ARE PENDING. A CHEST XRAY WAS OBTAINED AND REVEALED: No acute cardiopulmonary disease. HE IS CURRENTLY RECEIVING NORMAL SALINE AT 75 ML/HR, CIPRO 400MG IV Q12H, XOPENEX NEBS QID, OTBS ACHS, HUMULIN R SLIDING SCALE,. HIS HOME MEDICATIONS OF TYLENOL #3, NORVASC, VITAMIN C, ASPIRIN, LIPITOR, VITAMIN D3, CATAPRES, PLAVIX, COLACE, FLONASE, GABAPENTIN, LEVOTHYROXINE, LOSARTAN, MAGNESIUM OXIDE, METOPROLOL, TRAZODONE. WE WILL OBTAIN A BRAIN CT WITHOUT CONTRAST TODAY DUE TO WEAKNESS AND CONFUSION AT TIMES. WE WILL DECREASE HIS BEDTIME DOSE OF METOPROLOL TO 25MG. OTHERWISE, WE WILL FOLLOW-UP WITH AM LABS AND CHEST XRAY AND CONTINUE TO MONITOR. TIME SPENT ON CLINICAL ASSESSMENT, REVIEWING LABS AND IMAGING, DECISION MAKING, AND DOCUMENTATION GREATER THAN 45 MINUTES. - Past Medical Family Social History Past Med/Fam/Surg Hx: No changes since H&P Allergies: Allergies Penicillins Allergy (Verified 08/17/19 11:16) - Review of Systems ROS: No change since H&P - Vital Signs and I&O's Vital Signs: Vital Signs Temperature 97.4 F Temperature 98.5 F Pulse Rate [Apical] 66 Pulse Rate 57 Pulse Rate 62 Pulse Rate 68 Pulse Rate 68 Pulse Rate 65 Pulse Rate 60 Respiratory Rate 18 Respiratory Rate 18 Respiratory Rate 20 Respiratory Rate 18 Respiratory Rate 17 Respiratory Rate 20 Respiratory Rate 19 Blood Pressure [Left Arm] 146/74 Blood Pressure 130/72 Blood Pressure 132/68 Blood Pressure 132/68 O2 Sat by Pulse Oximetry 95 O2 Sat by Pulse Oximetry 95 O2 Sat by Pulse Oximetry 96 O2 Sat by Pulse Oximetry 95 O2 Sat by Pulse Oximetry 95 O2 Sat by Pulse Oximetry 94 O2 Sat by Pulse Oximetry 95 Intake and Output: Intake & Output 02/09/23 02/10/23 02/11/23 02/12/23 11:59 11:59 11:59 11:59 Intake Total 460 / 460 1962 / 1962 1200 / 1200 Output Total 400 / 400 1000 / 1000 350 / 350 Balance 60 / 60 962 / 962 850 / 850 - Physical Exam Oriented: Normal Eyes: Normal Ear: Normal Nose: Normal Throat: Normal Respiratory: Generalized, Diminished Cardiovascular: Normal : Normal Auscultation: Bowel Sounds: Normal Palpation: Normal Tenderness: Normal Skin: Normal Musculoskeletal: Normal Psychiatric: Normal Mood Description: Calm Affect: Normal Speech Pattern: Clear, Appropriate - Laboratory and Diagnostics Result Diagrams: 02/11/23 04:10 02/11/23 04:10 Labs: 02/09/23 19:22 Blood Blood Culture - Preliminary 02/09/23 19:35 Blood Blood Culture - Preliminary Laboratory WBC 5.1 X10^3/uL (3.6-10.0) 02/11/23 04:10 RBC 3.91 X10^6/uL (4.7-6.0) L 02/11/23 04:10 Hgb 12.2 g/dL (13.5-18.0) L 02/11/23 04:10 Hct 35.4 % (42.0-54.0) L 02/11/23 04:10 MCV 90.4 fL (80.0-100.0) 02/11/23 04:10 MCH 31.1 pg (27.0-34.0) 02/11/23 04:10 MCHC 34.3 g/dL (33.0-35.0) 02/11/23 04:10 RDW 14.4 % (11.6-16.5) 02/11/23 04:10 Plt Count 243 X10^3/uL (150.0-450.0) 02/11/23 04:10 Plt Count Comment Adequate (ADEQUATE) 02/11/23 04:10 MPV 7.8 fL (7.4-11.0) 02/11/23 04:10 Neut % (Auto) 45.6 % (42.0-75.0) 02/11/23 04:10 Lymph % (Auto) 30.6 % (21.0-51.0) 02/11/23 04:10 [place] % (Auto) 20.4 % (0.0-13.0) H 02/11/23 04:10 Eos % (Auto) 3.1 % (0.9-2.9) H 02/11/23 04:10 Baso % (Auto) 0.3 % (0.2-1.0) 02/11/23 04:10 Neut # (Auto) 2.3 x10^3/uL (2.2-4.8) 02/11/23 04:10 Lymph # (Auto) 1.6 X10^3/uL (1.3-2.9) 02/11/23 04:10 [place] # (Auto) 1.0 x10^3/uL (0.3-0.8) H 02/11/23 04:10 Eos # (Auto) 0.2 x10^3/uL (0.0-0.2) 02/11/23 04:10 Baso # (Auto) 0.0 X10^3/uL (0.0-0.1) 02/11/23 04:10 Absolute Nucleated RBC 0.1 /100WBC 02/11/23 04:10 Total Counted 100 02/11/23 04:10 Neutrophils % (Manual) 47 % (39-76) 02/11/23 04:10 Band Neutrophils % 4 % (0-10) 02/11/23 04:10 Lymphocytes % (Manual) 31 % (13-43) 02/11/23 04:10 Monocytes % (Manual) 16 % (4-9) H 02/11/23 04:10 Eosinophils % (Manual) 2 % (0-6) 02/11/23 04:10 Plt Morphology Comment Normal (NORMAL) 02/11/23 04:10 RBC Morphology Normal (NORMAL) 02/11/23 04:10 Sodium 139 mmol/L (136-145) 02/11/23 04:10 Corrected Sodium 140 mmol/L (136-145) 02/11/23 04:10 Potassium 4.1 mmol/L (3.5-5.1) 02/11/23 04:10 Chloride 105 mmol/L (98-107) 02/11/23 04:10 Carbon Dioxide 25.5 mmol/L (21-32) 02/11/23 04:10 BUN 22 mg/dL (7-18) H 02/11/23 04:10 Creatinine 1.65 mg/dL (0.70-1.30) H 02/11/23 04:10 Est GFR (MDRD) Af Amer 53 (>60) L 02/11/23 04:10 Est GFR (MDRD) Non-Af 43 (>60) L 02/11/23 04:10 Glucose 136 mg/dL (65-99) H 02/11/23 04:10 POC Glucose (mg/dL) 180 mg/dL (65-99) H 02/11/23 21:20 Lactic Acid 1.4 mmol/L (0.4-2.0) 02/09/23 22:38 Calcium 7.9 mg/dL (8.5-10.1) L 02/11/23 04:10 Corrected Calcium 8.8 mg/dL (8.5-10.1) 02/11/23 04:10 Magnesium 2.1 mg/dL (2.0-2.9) 02/11/23 04:10 Total Bilirubin 0.60 mg/dL (0.2-1.0) 02/11/23 04:10 AST 22 Units/L (15-37) 02/11/23 04:10 ALT 26 Units/L (12-78) 02/11/23 04:10 Alkaline Phosphatase 65 Units/L (46-116) 02/11/23 04:10 Troponin I High Sens 9.9 ng/L (4.0-60.0) 02/09/23 19:35 B-Natriuretic Peptide 71.9 pg/mL (0-79) 02/09/23 19:35 Total Protein 5.9 g/dL (6.4-8.2) L 02/11/23 04:10 Albumin 2.9 g/dL (3.4-5.0) L 02/11/23 04:10 Globulin 3.0 g/dL (2.5-4.5) 02/11/23 04:10 Albumin/Globulin Ratio 1.0 Ratio (1.1-2.1) L 02/11/23 04:10 Lipase 171 Units/L (73-393) 02/09/23 19:35 Specimen Type Clean catch urine 02/10/23 01:05 Urine Color Yellow (YELLOW) 02/10/23 01:05 Urine Appearance Clear (CLEAR) 02/10/23 01:05 Urine pH 5.0 (5.0 - 8.0) 02/10/23 01:05 Ur Specific [place] 1.015 (1.000-1.030) 02/10/23 01:05 Urine Protein 1+ (NEGATIVE) 02/10/23 01:05 Urine Glucose (UA) 4+ (NEGATIVE) 02/10/23 01:05 Urine Ketones Negative (NEGATIVE) 02/10/23 01:05 Urine Blood Negative (NEGATIVE) 02/10/23 01:05 Urine Nitrite Negative (NEGATIVE) 02/10/23 01:05 Urine Bilirubin Negative (NEGATIVE) 02/10/23 01:05 Urine Urobilinogen Normal (NORMAL) 02/10/23 01:05 Ur Leukocyte Esterase Negative (NEGATIVE) 02/10/23 01:05 Urine RBC None seen /HPF (0-3) 02/10/23 01:05 Urine WBC None seen /HPF (0-5) 02/10/23 01:05 Ur Squamous Epith Cells Negative /HPF (NEGATIVE) 02/10/23 01:05 Urine Bacteria Negative /HPF (NEGATIVE) 02/10/23 01:05 Hyaline Casts Rare /LPF (NEGATIVE) 02/10/23 01:05 Ur Culture Indicated? No/not indicated 02/10/23 01:05 SARS-CoV-2 (PCR) Negative (NEGATIVE) 02/09/23 19:48 Influenza Type A (PCR) Negative (NEGATIVE) 02/09/23 19:48 Influenza Type B (PCR) Negative (NEGATIVE) 02/09/23 19:48 RSV (PCR) Positive (NEGATIVE) A 02/09/23 19:48 - Plan (1) RITA (acute kidney injury) Status: Acute Plan: NORMAL SALINE AT 75 ML/HR, CIPRO 400MG IV Q12H, XOPENEX NEBS QID, OTBS ACHS, HUMULIN R SLIDING SCALE. HIS HOME MEDICATIONS OF TYLENOL #3, NORVASC, VITAMIN C, ASPIRIN, LIPITOR, VITAMIN D3, CATAPRES, PLAVIX, COLACE, FLONASE, GABAPENTIN, LEVOTHYROXINE, LOSARTAN, MAGNESIUM OXIDE, METOPROLOL, TRAZODONE. (2) Acute bronchitis Status: Acute Qualifiers: Bronchitis organism: RSV Qualified Code(s): J20.5 - Acute bronchitis due to respiratory syncytial virus (3) BPH (benign prostatic hyperplasia) Status: Chronic Qualifiers: Lower urinary tract symptom presence: symptoms absent Qualified Code(s): N40.0 - Benign prostatic hyperplasia without lower urinary tract symptoms (4) Coronary artery disease Status: Chronic Qualifiers: Coronary Disease-Associated Artery/Lesion type: [place] artery [place] vs. transplanted heart: [place] heart Associated angina: without angina Qualified Code(s): I25.10 - Atherosclerotic heart disease of [place] coronary artery without angina pectoris (5) Diabetes mellitus, type 2 Status: Chronic Qualifiers: Diabetes mellitus fdc insulin use: with termite exterminator use Diabetes mellitus complication status: with hyperglycemia Qualified Code(s): E11.65 - Type 2 diabetes mellitus with hyperglycemia; Z79.4 - terminal gauger supervisor (current) use of insulin (6) Hypertension Status: Chronic Qualifiers: Hypertension type: primary hypertension Qualified Code(s): I10 - Essential (primary) hypertension
[2023-02-12] MEDS: NS 1,000 ML IV 1,000 ML IV SCH ×3 (04:01→18:50)
[2023-02-12 05:51] LABS: BASOPHILS % (AUTO) 0.3 % (0.2-1.0); EOSINOPHILS # (AUTO) 0.2 x10^3/uL (0.0-0.2); EOSINOPHILS % (AUTO) 4.3 % (0.9-2.9); HEMATOCRIT 36.4 % (42.0-54.0); HEMOGLOBIN 12.6 g/dL (13.5-18.0); LYMPHOCYTES # (AUTO) 1.3 X10^3/uL (1.3-2.9); LYMPHOCYTES % (AUTO) 27.4 % (21.0-51.0); MEAN CORPUSCULAR HEMOGLOBIN 31.2 pg (27.0-34.0); MEAN CORPUSCULAR HGB CONC 34.6 g/dL (33.0-35.0); MEAN CORPUSCULAR VOLUME 90.2 fL (80.0-100.0); MEAN PLATELET VOLUME 7.5 fL (7.4-11.0); MONOCYTES # (AUTO) 0.7 x10^3/uL (0.3-0.8); MONOCYTES % (AUTO) 14.8 % (0.0-13.0); NEUTROPHILS # (AUTO) 2.5 x10^3/uL (2.2-4.8); NEUTROPHILS % (AUTO) 53.2 % (42.0-75.0); PLATELET COUNT 237 X10^3/uL (150.0-450.0); RED BLOOD COUNT 4.03 X10^6/uL (4.7-6.0); RED CELL DISTRIBUTION WIDTH 14.4 % (11.6-16.5); WHITE BLOOD COUNT 4.8 X10^3/uL (3.6-10.0)
[2023-02-12 06:03] LABS: ALANINE AMINOTRANSFERASE 29 Units/L (12-78); ALBUMIN 2.9 g/dL (3.4-5.0); ALKALINE PHOSPHATASE 67 Units/L (46-116); ASPARTATE AMINO TRANSFERASE 30 Units/L (15-37); BLOOD UREA NITROGEN 16 mg/dL (7-18); CALCIUM 8.1 mg/dL (8.5-10.1); CHLORIDE 105 mmol/L (98-107); COR NA(FOR HYPERGLY) 139 mmol/L (136-145); CREATININE 1.36 mg/dL (0.70-1.30); GLUCOSE 156 mg/dL (65-99); POTASSIUM 3.9 mmol/L (3.5-5.1); SODIUM 138 mmol/L (136-145); TOTAL PROTEIN 6.1 g/dL (6.4-8.2); eGFR NON BLACK RACES 54 (>60)
--- NOTE | 2023-02-12 08:17 | RAD ---
HISTORYSOB HX: CVA, TIA, CAD, DC, HTN, DM, PROSTATE CANCER SX: ANGIOPLASTY/STENTSSTUDYCHEST, 1 [id number] Hospital for the Chronically Ill. Stable cardiomediastinal silhouette. Streaky left base opacity. No visible pneumothorax or sizable pleural effusion although the could be a small left pleural effusion. No acute osseous finding.IMPRESSIONLeft base atelectasis or infiltrate and possible small left effusion.Electronically signed by: Ashish Sherman (Feb 12, 2023 08:15:42)
[2023-02-12] MEDS: XOPENEX 1.25 MG/3 ML NEBULE NEB SCH ×4 (09:35→21:05)
[2023-02-12] MEDS: CIPRO IV 400 MG PREMIX* 400 MG/200 ML IV.SOLN. IV SCH ×2 (10:42→20:54)
[2023-02-12] MEDS: CATAPRES TAB 0.2 MG PO SCH ×2 (10:42→20:59)
[2023-02-12] MEDS: VITAMIN D3 25 mcg (1,000 UNITS) PO SCH (10:42)
[2023-02-12] MEDS: ASPIRIN PO SCH (10:42)
[2023-02-12] MEDS: MILK OF MAGNESIA PO SCH (10:42)
[2023-02-12] MEDS: VITAMIN C PO SCH (10:42)
[2023-02-12] MEDS: COZAAR PO SCH (10:43)
[2023-02-12] MEDS: LOVENOX INJ 30 MG SYR SC SCH (10:43)
[2023-02-12] MEDS: PLAVIX PO SCH (10:43)
[2023-02-12] MEDS: SYNTHROID 100 mcg TAB PO SCH (10:43)
[2023-02-12] MEDS: LOPRESSOR TAB 50 MG PO SCH (10:43)
[2023-02-12] MEDS: NORVASC TAB 10 MG PO SCH (10:43)
[2023-02-12] MEDS: FLONASE NASAL SPRAY ENOSTRIL SCH (10:44)
[2023-02-12] MEDS: PATIENT'S HOME MEDICATION (Alfuzosin 10 mg Tablet Extended Release 24 Hr) PO SCH (11:36)
--- NOTE | 2023-02-12 12:18 | CT ---
HISTORYWeakness, aphasiaSTUDYCT brain without contrastCOMPARISONDecember 2021TECHNIQUEMultiple axial images of the brain were obtained from the skull base to the vertex [without] administration of IV contrast.Dose reduction techniques including Automated Exposure Control (AEC) and adjustment of mA and kV were utlized.FINDINGS[No acute intraparenchymal hemorrhage or mass can be identified.] [No extra-axial fluid collections are seen.] [No alteration in the attenuation of the brain parenchyma can be identified to suggest acute or subacute ischemic change.] [Ventricular system is stable in size and mildly dilated there extensive small vessel ischemic changes and cortical atrophy unchanged compared to prior. There also some vascular calcifications which also appear unchanged. [The extracranial structures are grossly unremarkable.]IMPRESSION[No acute intracranial process can be identified.]Electronically signed by: OFE SMITH (Feb 12, 2023 12:16:53)
[2023-02-12] MEDS: DESYREL PO SCH (20:53)
[2023-02-12] MEDS: NEURONTIN CAP 100 MG PO SCH (20:54)
[2023-02-12] MEDS: COLACE CAP 100 MG PO SCH (20:54)
[2023-02-12] MEDS: LIPITOR TAB 40 MG PO SCH (20:54)
[2023-02-12] MEDS: LOPRESSOR TAB 25 MG PO SCH (21:10)
--- NOTE | 2023-02-12 21:41 | PCM.PROG ---
Progress Note - Progress Note for Day of Date of Exam: 02/12/23 - Subjective Subjective: IS CURRENTLY OBSERVATION STATUS FOR TREATMENT OF ACUTE KIDNEY INJURY AND ACUTE BRONCHITIS DUE TO RSV. HE HAS A PMH OF TYPE 2 DIABETES, HTN, CAD, [place], TIA, CARDIAC STENTS, HX OF PROSTATE CANCER. TODAY, HE IS ALERT, LYING IN BED ON MORNING ROUNDS. HE CONTINUES TO COMPLAIN OF A PRODUCTIVE COUGH, SHORTNESS OF BREATH AT TIMES, AND GENERALIZED WEAKNESS. NURSING STAFF REPORTS THAT HE IS VERY UNSTEADY ON AMBULATION AND REQUIRES USE OF THE WALKER AND ASSISTANCE FROM STAFF. PATIENTS SPOUSE ALSO REPORTS THAT HE HAS CONTINUED TO HAVE PERIODS OF CONFUSION. SHE REPORTS THAT WEAKNESS AND CONFUSION HAS BEEN ONGOING FOR THE PAST FEW WEEKS. ON EXAMINATION, PATIENT HAS INTERMITTENT PERIODS OF EXPRESSIVE DYSPHAGIA. HE IS BRADYCARDIC WITH HR IN THE 50s NOTED. BILATERAL LUNGS ARE NOTED WITH DIMINISHED LUNG SOUNDS THROUGHOUT. ABDOMEN IS ROUND, SOFT, AND NON-TENDER WITH NORMAL BOWEL SOUNDS NOTED IN ALL QUADRANTS. GOOD RANGE OF MOTION NOTED TO BILATERAL LOWER EXTREMITIES WITH NO EDEMA NOTED. HIS VITALS THIS MORNING ARE: 97.9-53-20-93%-172/81. HE HAS BEEN BRADYCARDIC THROUGHOUT THE NIGHT. HR HAS BEEN IN THE 40s AND 50s. LABS WERE OBTAINED. WBC 4.8, RBC 4.03, HGB 12.6, HCT 36.4, PLT COUNT 237, SODIUM 138, POTASSIUM 3.9, CHLORIDE 105, BUN 16, CREATININE 1.36, GLUCOSE 156, CALCIUM 8.1, AST 30, ALT 29, ALK PHOS 67, TOTAL PROTEIN 6.1, ALBUMIN 2.9. BLOOD CULTURES ARE PENDING. A CHEST XRAY WAS OBTAINED AND REVEALED: Left base atelectasis or infiltrate and possible small left effusion. HE IS CURRENTLY RECEIVING NORMAL SALINE AT 75 ML/HR, CIPRO 400MG IV Q12H, XOPENEX NEBS QID, OTBS ACHS, HUMULIN R SLIDING SCALE. HIS HOME MEDICATIONS OF TYLENOL #3, NORVASC, VITAMIN C, ASPIRIN, LIPITOR, VITAMIN D3, CATAPRES, PLAVIX, COLACE, FLONASE, GABAPENTIN, LEVOTHYROXINE, LOSARTAN, MAGNESIUM OXIDE, METOPROLOL, TRAZODONE. WE WILL OBTAIN A BRAIN CT WITHOUT CONTRAST TODAY DUE TO EXPRESSIVE DYSPHAGIA, WEAKNESS, AND CONFUSION AT TIMES. OTHERWISE, WE WILL FOLLOW-UP WITH AM LABS AND CHEST XRAY AND CONTINUE TO MONITOR. TIME SPENT ON CLINICAL ASSESSMENT, REVIEWING LABS AND IMAGING, DECISION MAKING, AND DOCUMENTATION GREATER THAN 45 MINUTES. - Past Medical Family Social History Past Med/Fam/Surg Hx: No changes since H&P Allergies: Allergies Penicillins Allergy (Verified 08/17/19 11:16) - Review of Systems ROS: No change since H&P - Vital Signs and I&O's Vital Signs: Vital Signs Temperature 97.7 F Temperature 97.1 F Pulse Rate [Apical] 69 Pulse Rate [Apical] 56 Pulse Rate 62 Respiratory Rate 18 Respiratory Rate 18 Blood Pressure [Left Arm] 127/71 Blood Pressure [Left Arm] 130/65 O2 Sat by Pulse Oximetry 96 O2 Sat by Pulse Oximetry 98 O2 Sat by Pulse Oximetry 94 Intake and Output: Intake & Output 02/10/23 02/11/23 02/12/23 02/13/23 11:59 11:59 11:59 11:59 Intake Total 460 / 460 1962 / 1962 3562 / 3562 1039 / 1039 Output Total 400 / 400 1000 / 1000 3750 / 3750 400 / 400 Balance 60 / 60 962 / 962 -188 / -188 639 / 639 - Physical Exam Oriented: Normal Eyes: Normal Ear: Normal Nose: Normal Throat: Normal Respiratory: Generalized, Diminished Cardiovascular: Normal : Normal Auscultation: Bowel Sounds: Normal Tenderness: Normal Skin: Normal Musculoskeletal: Normal Psychiatric: Normal Mood Description: Calm Affect: Normal Speech Pattern: Delayed - Laboratory and Diagnostics Result Diagrams: 02/12/23 05:32 02/12/23 05:32 Labs: 02/09/23 19:22 Blood Blood Culture - Preliminary 02/09/23 19:35 Blood Blood Culture - Preliminary Laboratory WBC 4.8 X10^3/uL (3.6-10.0) 02/12/23 05:32 RBC 4.03 X10^6/uL (4.7-6.0) L 02/12/23 05:32 Hgb 12.6 g/dL (13.5-18.0) L 02/12/23 05:32 Hct 36.4 % (42.0-54.0) L 02/12/23 05:32 MCV 90.2 fL (80.0-100.0) 02/12/23 05:32 MCH 31.2 pg (27.0-34.0) 02/12/23 05:32 MCHC 34.6 g/dL (33.0-35.0) 02/12/23 05:32 RDW 14.4 % (11.6-16.5) 02/12/23 05:32 Plt Count 237 X10^3/uL (150.0-450.0) 02/12/23 05:32 Plt Count Comment Adequate (ADEQUATE) 02/11/23 04:10 MPV 7.5 fL (7.4-11.0) 02/12/23 05:32 Neut % (Auto) 53.2 % (42.0-75.0) 02/12/23 05:32 Lymph % (Auto) 27.4 % (21.0-51.0) 02/12/23 05:32 [place] % (Auto) 14.8 % (0.0-13.0) H 02/12/23 05:32 Eos % (Auto) 4.3 % (0.9-2.9) H 02/12/23 05:32 Baso % (Auto) 0.3 % (0.2-1.0) 02/12/23 05:32 Neut # (Auto) 2.5 x10^3/uL (2.2-4.8) 02/12/23 05:32 Lymph # (Auto) 1.3 X10^3/uL (1.3-2.9) 02/12/23 05:32 [place] # (Auto) 0.7 x10^3/uL (0.3-0.8) 02/12/23 05:32 Eos # (Auto) 0.2 x10^3/uL (0.0-0.2) 02/12/23 05:32 Baso # (Auto) 0.0 X10^3/uL (0.0-0.1) 02/12/23 05:32 Absolute Nucleated RBC 0.1 /100WBC 02/12/23 05:32 Total Counted 100 02/11/23 04:10 Neutrophils % (Manual) 47 % (39-76) 02/11/23 04:10 Band Neutrophils % 4 % (0-10) 02/11/23 04:10 Lymphocytes % (Manual) 31 % (13-43) 02/11/23 04:10 Monocytes % (Manual) 16 % (4-9) H 02/11/23 04:10 Eosinophils % (Manual) 2 % (0-6) 02/11/23 04:10 Plt Morphology Comment Normal (NORMAL) 02/11/23 04:10 RBC Morphology Normal (NORMAL) 02/11/23 04:10 Sodium 138 mmol/L (136-145) 02/12/23 05:32 Corrected Sodium 139 mmol/L (136-145) 02/12/23 05:32 Potassium 3.9 mmol/L (3.5-5.1) 02/12/23 05:32 Chloride 105 mmol/L (98-107) 02/12/23 05:32 Carbon Dioxide 24.0 mmol/L (21-32) 02/12/23 05:32 BUN 16 mg/dL (7-18) 02/12/23 05:32 Creatinine 1.36 mg/dL (0.70-1.30) H 02/12/23 05:32 Est GFR (MDRD) Af Amer > 60 (>60) 02/12/23 05:32 Est GFR (MDRD) Non-Af 54 (>60) L 02/12/23 05:32 Glucose 156 mg/dL (65-99) H 02/12/23 05:32 POC Glucose (mg/dL) 168 mg/dL (65-99) H 02/12/23 21:05 Lactic Acid 1.4 mmol/L (0.4-2.0) 02/09/23 22:38 Calcium 8.1 mg/dL (8.5-10.1) L 02/12/23 05:32 Corrected Calcium 9.0 mg/dL (8.5-10.1) 02/12/23 05:32 Magnesium 2.1 mg/dL (2.0-2.9) 02/11/23 04:10 Total Bilirubin 0.50 mg/dL (0.2-1.0) 02/12/23 05:32 AST 30 Units/L (15-37) 02/12/23 05:32 ALT 29 Units/L (12-78) 02/12/23 05:32 Alkaline Phosphatase 67 Units/L (46-116) 02/12/23 05:32 Troponin I High Sens 9.9 ng/L (4.0-60.0) 02/09/23 19:35 B-Natriuretic Peptide 71.9 pg/mL (0-79) 02/09/23 19:35 Total Protein 6.1 g/dL (6.4-8.2) L 02/12/23 05:32 Albumin 2.9 g/dL (3.4-5.0) L 02/12/23 05:32 Globulin 3.2 g/dL (2.5-4.5) 02/12/23 05:32 Albumin/Globulin Ratio 0.9 Ratio (1.1-2.1) L 02/12/23 05:32 Lipase 171 Units/L (73-393) 02/09/23 19:35 Specimen Type Clean catch urine 02/10/23 01:05 Urine Color Yellow (YELLOW) 02/10/23 01:05 Urine Appearance Clear (CLEAR) 02/10/23 01:05 Urine pH 5.0 (5.0 - 8.0) 02/10/23 01:05 Ur Specific [place] 1.015 (1.000-1.030) 02/10/23 01:05 Urine Protein 1+ (NEGATIVE) 02/10/23 01:05 Urine Glucose (UA) 4+ (NEGATIVE) 02/10/23 01:05 Urine Ketones Negative (NEGATIVE) 02/10/23 01:05 Urine Blood Negative (NEGATIVE) 02/10/23 01:05 Urine Nitrite Negative (NEGATIVE) 02/10/23 01:05 Urine Bilirubin Negative (NEGATIVE) 02/10/23 01:05 Urine Urobilinogen Normal (NORMAL) 02/10/23 01:05 Ur Leukocyte Esterase Negative (NEGATIVE) 02/10/23 01:05 Urine RBC None seen /HPF (0-3) 02/10/23 01:05 Urine WBC None seen /HPF (0-5) 02/10/23 01:05 Ur Squamous Epith Cells Negative /HPF (NEGATIVE) 02/10/23 01:05 Urine Bacteria Negative /HPF (NEGATIVE) 02/10/23 01:05 Hyaline Casts Rare /LPF (NEGATIVE) 02/10/23 01:05 Ur Culture Indicated? No/not indicated 02/10/23 01:05 SARS-CoV-2 (PCR) Negative (NEGATIVE) 02/09/23 19:48 Influenza Type A (PCR) Negative (NEGATIVE) 02/09/23 19:48 Influenza Type B (PCR) Negative (NEGATIVE) 02/09/23 19:48 RSV (PCR) Positive (NEGATIVE) A 02/09/23 19:48 - Plan (1) RITA (acute kidney injury) Status: Acute Plan: NORMAL SALINE AT 75 ML/HR, CIPRO 400MG IV Q12H, XOPENEX NEBS QID, OTBS ACHS, HUMULIN R SLIDING SCALE. HIS HOME MEDICATIONS OF TYLENOL #3, NORVASC, VITAMIN C, ASPIRIN, LIPITOR, VITAMIN D3, CATAPRES, PLAVIX, COLACE, FLONASE, GABAPENTIN, LEVOTHYROXINE, LOSARTAN, MAGNESIUM OXIDE, METOPROLOL, TRAZODONE. (2) Acute bronchitis Status: Acute Qualifiers: Bronchitis organism: RSV Qualified Code(s): J20.5 - Acute bronchitis due to respiratory syncytial virus (3) Expressive dysphasia Status: Acute Plan: OBTAIN BRAIN CT (4) Generalized weakness Status: Acute (5) BPH (benign prostatic hyperplasia) Status: Chronic Qualifiers: Lower urinary tract symptom presence: symptoms absent Qualified Code(s): N40.0 - Benign prostatic hyperplasia without lower urinary tract symptoms (6) Coronary artery disease Status: Chronic Qualifiers: Coronary Disease-Associated Artery/Lesion type: [place] artery [place] vs. transplanted heart: [place] heart Associated angina: without angina Qualified Code(s): I25.10 - Atherosclerotic heart disease of [place] coronary artery without angina pectoris (7) Diabetes mellitus, type 2 Status: Chronic Qualifiers: Diabetes mellitus moth exterminator insulin use: with moth exterminator use Diabetes mellitus complication status: with hyperglycemia Qualified Code(s): E11.65 - Type 2 diabetes mellitus with hyperglycemia; Z79.4 - skilled nursing (current) use of insulin (8) Hypertension Status: Chronic Qualifiers: Hypertension type: primary hypertension Qualified Code(s): I10 - Essential (primary) hypertension
[2023-02-13] MEDS: NS 1,000 ML IV 1,000 ML IV SCH ×4 (00:54→21:17)
[2023-02-13 05:14] LABS: BASOPHILS % (AUTO) 0.3 % (0.2-1.0); EOSINOPHILS # (AUTO) 0.2 x10^3/uL (0.0-0.2); HEMATOCRIT 34.3 % (42.0-54.0); HEMOGLOBIN 11.9 g/dL (13.5-18.0); LYMPHOCYTES # (AUTO) 1.3 X10^3/uL (1.3-2.9); LYMPHOCYTES % (AUTO) 33.8 % (21.0-51.0); MEAN CORPUSCULAR HEMOGLOBIN 31.3 pg (27.0-34.0); MEAN CORPUSCULAR HGB CONC 34.7 g/dL (33.0-35.0); MEAN PLATELET VOLUME 7.7 fL (7.4-11.0); MONOCYTES # (AUTO) 0.4 x10^3/uL (0.3-0.8); MONOCYTES % (AUTO) 11.6 % (0.0-13.0); NEUTROPHILS # (AUTO) 1.9 x10^3/uL (2.2-4.8); NEUTROPHILS % (AUTO) 48.3 % (42.0-75.0); PLATELET COUNT 260 X10^3/uL (150.0-450.0); RED BLOOD COUNT 3.82 X10^6/uL (4.7-6.0); RED CELL DISTRIBUTION WIDTH 14.2 % (11.6-16.5); WHITE BLOOD COUNT 3.8 X10^3/uL (3.6-10.0)
[2023-02-13 05:25] LABS: ALANINE AMINOTRANSFERASE 27 Units/L (12-78); ALBUMIN 2.7 g/dL (3.4-5.0); ALKALINE PHOSPHATASE 68 Units/L (46-116); ASPARTATE AMINO TRANSFERASE 26 Units/L (15-37); BLOOD UREA NITROGEN 12 mg/dL (7-18); CALCIUM 7.9 mg/dL (8.5-10.1); CARBON DIOXIDE 24.6 mmol/L (21-32); CHLORIDE 105 mmol/L (98-107); COR CA(FOR HYPOALB) 8.9 mg/dL (8.5-10.1); COR NA(FOR HYPERGLY) 141 mmol/L (136-145); CREATININE 1.36 mg/dL (0.70-1.30); GLUCOSE 210 mg/dL (65-99); POTASSIUM 3.8 mmol/L (3.5-5.1); SODIUM 138 mmol/L (136-145); TOTAL PROTEIN 5.8 g/dL (6.4-8.2); eGFR NON BLACK RACES 54 (>60)
[2023-02-13] MEDS ORDERED: CONSULT PHARMACY - POTASSIUM & MAGNESIUM XX SCH (08:00)
[2023-02-13] MEDS ORDERED: K-DUR TAB 20 MEQ PO SCH (09:00)
[2023-02-13] MEDS: XOPENEX 1.25 MG/3 ML NEBULE NEB SCH ×4 (09:00→20:20)
[2023-02-13] MEDS: MILK OF MAGNESIA PO SCH (09:35)
[2023-02-13] MEDS: PATIENT'S HOME MEDICATION (Alfuzosin 10 mg Tablet Extended Release 24 Hr) PO SCH (09:35)
[2023-02-13] MEDS: CIPRO IV 400 MG PREMIX* 400 MG/200 ML IV.SOLN. IV SCH ×2 (09:35→21:09)
[2023-02-13] MEDS: LOVENOX INJ 30 MG SYR SC SCH (09:36)
[2023-02-13] MEDS: ASPIRIN PO SCH (09:36)
[2023-02-13] MEDS: VITAMIN C PO SCH (09:36)
[2023-02-13] MEDS: GLUCOTROL PO SCH ×2 (09:37→21:09)
[2023-02-13] MEDS: SYNTHROID 100 mcg TAB PO SCH (09:37)
[2023-02-13] MEDS: CATAPRES TAB 0.2 MG PO SCH ×2 (09:37→21:09)
[2023-02-13] MEDS: PLAVIX PO SCH (09:37)
[2023-02-13] MEDS: LOPRESSOR TAB 50 MG PO SCH (09:37)
[2023-02-13] MEDS: NORVASC TAB 10 MG PO SCH (09:37)
[2023-02-13] MEDS: VITAMIN D3 25 mcg (1,000 UNITS) PO SCH (09:37)
[2023-02-13] MEDS: COZAAR PO SCH (09:38)
[2023-02-13] MEDS: FLONASE NASAL SPRAY ENOSTRIL SCH (09:38)
--- NOTE | 2023-02-13 09:52 | RAD ---
HISTORYShortness of breathSTUDYCHEST, 1 [id number]/01/2023FINDINGSThe trachea is midline. The cardiac silhouette is enlarged with a tortuous thoracic aorta. Airspace opacity left retrocardiac region is observed likely base of subsegmental atelectasis. However, underlying pneumonia cannot be entirely excluded. The bony thorax is unremarkable.IMPRESSIONAirspace opacity in the retrocardiac region left lower lobe is again observed and stable. Right darnell thorax is unremarkable.Electronically signed by: SYLVIA ESTES (Feb 13, 2023 09:51:17)
--- NOTE | 2023-02-13 10:46 | PCM.PROG ---
Progress Note - Progress Note for Day of Date of Exam: 02/13/23 - Subjective Subjective: IS CURRENTLY OBSERVATION STATUS FOR TREATMENT OF ACUTE KIDNEY INJURY AND ACUTE BRONCHITIS DUE TO RSV. HE HAS A PMH OF TYPE 2 DIABETES, HTN, CAD, [place], TIA, CARDIAC STENTS, HX OF PROSTATE CANCER. TODAY, HE IS ALERT, LYING IN BED ON MORNING ROUNDS. HE CONTINUES TO COMPLAIN OF SHORTNESS OF BREATH AT TIMES, COUGH, AND GENERALIZED WEAKNESS. COUGH IS NO LONGER PRODUCTIVE. NURSING STAFF REPORTS THAT HE IS VERY UNSTEADY ON AMBULATION AND REQUIRES USE OF THE WALKER AND ASSISTANCE FROM STAFF. PATIENTS SPOUSE ALSO REPORTS THAT HE HAS CONTINUED TO HAVE PERIODS OF CONFUSION AND TROUBLE GETTING HIS WORDS OUT. ON EXAMINATION, PATIENT CONTINUES TO HAVE INTERMITTENT PERIODS OF EXPRESSIVE DYSP HAGIA. BILATERAL LUNGS ARE NOTED WITH DIMINISHED LUNG SOUNDS THROUGHOUT. ABDOMEN IS ROUND, SOFT, AND NON-TENDER WITH NORMAL BOWEL SOUNDS NOTED IN ALL QUADRANTS. GOOD RANGE OF MOTION NOTED TO BILATERAL LOWER EXTREMITIES WITH NO EDEMA NOTED. HIS VITALS THIS MORNING ARE: 97.6-60-18-95%-145/74. LABS WERE OBTAINED. WBC 3.8, RBC 3.82, HGB 11.9, HCT 34.3, PLT COUNT 260, SODIUM 138, POTASSIUM 3.8, CHLORIDE 105, BUN 12, CREATININE 1.36, GLUCOSE 210, CALCIUM 7.9, AST 26, ALT 27, ALK PHOS 68, TOTAL PROTEIN 5.8, ALBUMIN 2.7. BLOOD CULTURES ARE PENDING. A CHEST XRAY WAS OBTAINED AND REVEALED: The. trachea is midline. The cardiac silhouette is enlarged with a tortuous thoracic aorta. Airspace opacity left retrocardiac region is observed likely base of subsegmental atelectasis. However, underlying pneumonia cannot be entirely excluded. The bony thorax is unremarkable. A BRAIN CT WAS OBTAINED YESTERDAY AND WAS NEGATIVE FOR ACUTE INTRACRANIAL ABNORMALITY. HE IS CURRENTLY RECEIVING NORMAL SALINE AT 75 ML/HR, CIPRO 400MG IV Q12H, XOPENEX NEBS QID, OTBS ACHS, HUMULIN R SLIDING SCALE. HIS HOME MEDICATIONS OF TYLENOL #3, NORVASC, VITAMIN C, ASPIRIN, LIPITOR, VITAMIN D3, CATAPRES, PLAVIX, COLACE, FLONASE, GABAPENTIN, LEVOTHYROXINE, LOSARTAN, MAGNESIUM OXIDE, METOPROLOL, TRAZODONE. WE WILL CONTINUE WITH CURRENT PLAN OF CARE TODAY. OTHERWISE, WE WILL FOLLOW-UP WITH AM LABS AND CHEST XRAY AND CONTINUE TO MONITOR. TIME SPENT ON CLINICAL ASSESSMENT, REVIEWING LABS AND IMAGING, DECISION MAKING, AND DOCUMENTATION GREATER THAN 45 MINUTES. - Past Medical Family Social History Past Med/Fam/Surg Hx: No changes since H&P Allergies: Allergies Penicillins Allergy (Verified 08/17/19 11:16) - Review of Systems ROS: No change since H&P - Vital Signs and I&O's Vital Signs: Vital Signs Temperature 97.6 F Temperature 98.3 F Pulse Rate [Apical] 60 Pulse Rate [Apical] 63 Pulse Rate 61 Respiratory Rate 18 Respiratory Rate 18 Blood Pressure [Right Arm] 145/74 Blood Pressure [Right Arm] 144/70 O2 Sat by Pulse Oximetry 96 O2 Sat by Pulse Oximetry 95 O2 Sat by Pulse Oximetry 96 Intake and Output: Intake & Output 02/10/23 02/11/23 02/12/23 02/13/23 11:59 11:59 11:59 11:59 Intake Total 460 / 460 1962 / 1962 3562 / 3562 2993 / 2993 Output Total 400 / 400 1000 / 1000 3750 / 3750 1810 / 1810 Balance 60 / 60 962 / 962 -188 / -188 1183 / 1183 - Physical Exam Oriented: Normal Eyes: Normal Ear: Normal Nose: Normal Throat: Normal Respiratory: Generalized, Diminished Cardiovascular: Normal : Normal Auscultation: Bowel Sounds: Normal Palpation: Normal Tenderness: Normal Skin: Normal Musculoskeletal: Normal Psychiatric: Normal Mood Description: Calm Affect: Normal Speech Pattern: Delayed - Laboratory and Diagnostics Result Diagrams: 02/13/23 04:53 02/13/23 04:53 Labs: 02/09/23 19:22 Blood Blood Culture - Preliminary 02/09/23 19:35 Blood Blood Culture - Preliminary Laboratory WBC 3.8 X10^3/uL (3.6-10.0) 02/13/23 04:53 RBC 3.82 X10^6/uL (4.7-6.0) L 02/13/23 04:53 Hgb 11.9 g/dL (13.5-18.0) L 02/13/23 04:53 Hct 34.3 % (42.0-54.0) L 02/13/23 04:53 MCV 90.0 fL (80.0-100.0) 02/13/23 04:53 MCH 31.3 pg (27.0-34.0) 02/13/23 04:53 MCHC 34.7 g/dL (33.0-35.0) 02/13/23 04:53 RDW 14.2 % (11.6-16.5) 02/13/23 04:53 Plt Count 260 X10^3/uL (150.0-450.0) 02/13/23 04:53 Plt Count Comment Adequate (ADEQUATE) 02/11/23 04:10 MPV 7.7 fL (7.4-11.0) 02/13/23 04:53 Neut % (Auto) 48.3 % (42.0-75.0) 02/13/23 04:53 Lymph % (Auto) 33.8 % (21.0-51.0) 02/13/23 04:53 [place] % (Auto) 11.6 % (0.0-13.0) 02/13/23 04:53 Eos % (Auto) 6.0 % (0.9-2.9) H 02/13/23 04:53 Baso % (Auto) 0.3 % (0.2-1.0) 02/13/23 04:53 Neut # (Auto) 1.9 x10^3/uL (2.2-4.8) L 02/13/23 04:53 Lymph # (Auto) 1.3 X10^3/uL (1.3-2.9) 02/13/23 04:53 [place] # (Auto) 0.4 x10^3/uL (0.3-0.8) 02/13/23 04:53 Eos # (Auto) 0.2 x10^3/uL (0.0-0.2) 02/13/23 04:53 Baso # (Auto) 0.0 X10^3/uL (0.0-0.1) 02/13/23 04:53 Absolute Nucleated RBC 0.0 /100WBC 02/13/23 04:53 Total Counted 100 02/11/23 04:10 Neutrophils % (Manual) 47 % (39-76) 02/11/23 04:10 Band Neutrophils % 4 % (0-10) 02/11/23 04:10 Lymphocytes % (Manual) 31 % (13-43) 02/11/23 04:10 Monocytes % (Manual) 16 % (4-9) H 02/11/23 04:10 Eosinophils % (Manual) 2 % (0-6) 02/11/23 04:10 Plt Morphology Comment Normal (NORMAL) 02/11/23 04:10 RBC Morphology Normal (NORMAL) 02/11/23 04:10 Sodium 138 mmol/L (136-145) 02/13/23 04:53 Corrected Sodium 141 mmol/L (136-145) 02/13/23 04:53 Potassium 3.8 mmol/L (3.5-5.1) 02/13/23 04:53 Chloride 105 mmol/L (98-107) 02/13/23 04:53 Carbon Dioxide 24.6 mmol/L (21-32) 02/13/23 04:53 BUN 12 mg/dL (7-18) 02/13/23 04:53 Creatinine 1.36 mg/dL (0.70-1.30) H 02/13/23 04:53 Est GFR (MDRD) Af Amer > 60 (>60) 02/13/23 04:53 Est GFR (MDRD) Non-Af 54 (>60) L 02/13/23 04:53 Glucose 210 mg/dL (65-99) H 02/13/23 04:53 POC Glucose (mg/dL) 246 mg/dL (65-99) H 02/13/23 05:51 Lactic Acid 1.4 mmol/L (0.4-2.0) 02/09/23 22:38 Calcium 7.9 mg/dL (8.5-10.1) L 02/13/23 04:53 Corrected Calcium 8.9 mg/dL (8.5-10.1) 02/13/23 04:53 Magnesium 2.1 mg/dL (2.0-2.9) 02/11/23 04:10 Total Bilirubin 0.30 mg/dL (0.2-1.0) 02/13/23 04:53 AST 26 Units/L (15-37) 02/13/23 04:53 ALT 27 Units/L (12-78) 02/13/23 04:53 Alkaline Phosphatase 68 Units/L (46-116) 02/13/23 04:53 Troponin I High Sens 9.9 ng/L (4.0-60.0) 02/09/23 19:35 B-Natriuretic Peptide 71.9 pg/mL (0-79) 02/09/23 19:35 Total Protein 5.8 g/dL (6.4-8.2) L 02/13/23 04:53 Albumin 2.7 g/dL (3.4-5.0) L 02/13/23 04:53 Globulin 3.1 g/dL (2.5-4.5) 02/13/23 04:53 Albumin/Globulin Ratio 0.9 Ratio (1.1-2.1) L 02/13/23 04:53 Lipase 171 Units/L (73-393) 02/09/23 19:35 Specimen Type Clean catch urine 02/10/23 01:05 Urine Color Yellow (YELLOW) 02/10/23 01:05 Urine Appearance Clear (CLEAR) 02/10/23 01:05 Urine pH 5.0 (5.0 - 8.0) 02/10/23 01:05 Ur Specific [place] 1.015 (1.000-1.030) 02/10/23 01:05 Urine Protein 1+ (NEGATIVE) 02/10/23 01:05 Urine Glucose (UA) 4+ (NEGATIVE) 02/10/23 01:05 Urine Ketones Negative (NEGATIVE) 02/10/23 01:05 Urine Blood Negative (NEGATIVE) 02/10/23 01:05 Urine Nitrite Negative (NEGATIVE) 02/10/23 01:05 Urine Bilirubin Negative (NEGATIVE) 02/10/23 01:05 Urine Urobilinogen Normal (NORMAL) 02/10/23 01:05 Ur Leukocyte Esterase Negative (NEGATIVE) 02/10/23 01:05 Urine RBC None seen /HPF (0-3) 02/10/23 01:05 Urine WBC None seen /HPF (0-5) 02/10/23 01:05 Ur Squamous Epith Cells Negative /HPF (NEGATIVE) 02/10/23 01:05 Urine Bacteria Negative /HPF (NEGATIVE) 02/10/23 01:05 Hyaline Casts Rare /LPF (NEGATIVE) 02/10/23 01:05 Ur Culture Indicated? No/not indicated 02/10/23 01:05 SARS-CoV-2 (PCR) Negative (NEGATIVE) 02/09/23 19:48 Influenza Type A (PCR) Negative (NEGATIVE) 02/09/23 19:48 Influenza Type B (PCR) Negative (NEGATIVE) 02/09/23 19:48 RSV (PCR) Positive (NEGATIVE) A 02/09/23 19:48 - Plan (1) RITA (acute kidney injury) Status: Acute Plan: NORMAL SALINE AT 75 ML/HR, CIPRO 400MG IV Q12H, XOPENEX NEBS QID, OTBS ACHS, HUMULIN R SLIDING SCALE. HIS HOME MEDICATIONS OF GLIPIZIDE, TYLENOL #3, NORVASC, VITAMIN C, ASPIRIN, LIPITOR, VITAMIN D3, CATAPRES, PLAVIX, COLACE, FLONASE, GABAPENTIN, LEVOTHYROXINE, LOSARTAN, MAGNESIUM OXIDE, METOPROLOL, TRAZODONE. (2) Acute bronchitis Status: Acute Qualifiers: Bronchitis organism: RSV Qualified Code(s): J20.5 - Acute bronchitis due to respiratory syncytial virus (3) Expressive dysphasia Status: Acute Plan: CONTINUE TO MONITOR (4) Generalized weakness Status: Acute (5) BPH (benign prostatic hyperplasia) Status: Chronic Qualifiers: Lower urinary tract symptom presence: symptoms absent Qualified Code(s): N40.0 - Benign prostatic hyperplasia without lower urinary tract symptoms (6) Coronary artery disease Status: Chronic Qualifiers: Coronary Disease-Associated Artery/Lesion type: [place] artery [place] vs. transplanted heart: [place] heart Associated angina: without angina Qualified Code(s): I25.10 - Atherosclerotic heart disease of [place] coronary artery without angina pectoris (7) Diabetes mellitus, type 2 Status: Chronic Qualifiers: Diabetes mellitus high risk case manager insulin use: with high risk case manager use Diabetes mellitus complication status: with hyperglycemia Qualified Code(s): E11.65 - Type 2 diabetes mellitus with hyperglycemia; Z79.4 - hospitalist (current) use of insulin Plan: CONTINUE GLIPIZIDE (8) Hypertension Status: Chronic Qualifiers: Hypertension type: primary hypertension Qualified Code(s): I10 - Essential (primary) hypertension
[2023-02-13] MEDS: LIPITOR TAB 40 MG PO SCH (21:08)
[2023-02-13] MEDS: SNACK - Diabetic Appropriate PO SCH (21:09)
[2023-02-13] MEDS: NEURONTIN CAP 100 MG PO SCH (21:09)
[2023-02-13] MEDS: COLACE CAP 100 MG PO SCH (21:09)
[2023-02-13] MEDS: LOPRESSOR TAB 25 MG PO SCH (21:09)
[2023-02-13] MEDS: DESYREL PO SCH (21:09)
[2023-02-14 05:24] LABS: BASOPHILS % (AUTO) 0.7 % (0.2-1.0); EOSINOPHILS # (AUTO) 0.3 x10^3/uL (0.0-0.2); HEMATOCRIT 34.7 % (42.0-54.0); HEMOGLOBIN 12.1 g/dL (13.5-18.0); LYMPHOCYTES # (AUTO) 1.4 X10^3/uL (1.3-2.9); LYMPHOCYTES % (AUTO) 31.4 % (21.0-51.0); MEAN CORPUSCULAR HEMOGLOBIN 31.3 pg (27.0-34.0); MEAN CORPUSCULAR HGB CONC 34.9 g/dL (33.0-35.0); MEAN CORPUSCULAR VOLUME 89.7 fL (80.0-100.0); MEAN PLATELET VOLUME 7.9 fL (7.4-11.0); MONOCYTES # (AUTO) 0.5 x10^3/uL (0.3-0.8); MONOCYTES % (AUTO) 11.4 % (0.0-13.0); NEUTROPHILS # (AUTO) 2.2 x10^3/uL (2.2-4.8); NEUTROPHILS % (AUTO) 50.5 % (42.0-75.0); PLATELET COUNT 288 X10^3/uL (150.0-450.0); RED BLOOD COUNT 3.87 X10^6/uL (4.7-6.0); RED CELL DISTRIBUTION WIDTH 14.2 % (11.6-16.5); WHITE BLOOD COUNT 4.4 X10^3/uL (3.6-10.0)
[2023-02-14 05:34] LABS: ALBUMIN 2.9 g/dL (3.4-5.0); CALCIUM 8.1 mg/dL (8.5-10.1); CARBON DIOXIDE 24.6 mmol/L (21-32); CREATININE 1.48 mg/dL (0.70-1.30); POTASSIUM 4.1 mmol/L (3.5-5.1); TOTAL PROTEIN 5.9 g/dL (6.4-8.2)
[2023-02-14] MEDS: CIPRO IV 400 MG PREMIX* 400 MG/200 ML IV.SOLN. IV SCH ×2 (08:19→20:04)
[2023-02-14] MEDS: MILK OF MAGNESIA PO SCH (08:20)
[2023-02-14] MEDS: LOVENOX INJ 30 MG SYR SC SCH (08:20)
[2023-02-14] MEDS: SYNTHROID 100 mcg TAB PO SCH (08:25)
[2023-02-14] MEDS: LOPRESSOR TAB 50 MG PO SCH (08:25)
[2023-02-14] MEDS: GLUCOTROL PO SCH ×2 (08:25→20:03)
[2023-02-14] MEDS: ASPIRIN PO SCH (08:25)
[2023-02-14] MEDS: NORVASC TAB 10 MG PO SCH (08:25)
[2023-02-14] MEDS: PLAVIX PO SCH (08:25)
[2023-02-14] MEDS: FLONASE NASAL SPRAY ENOSTRIL SCH (08:26)
[2023-02-14] MEDS: VITAMIN D3 25 mcg (1,000 UNITS) PO SCH (08:26)
[2023-02-14] MEDS: PATIENT'S HOME MEDICATION (Alfuzosin 10 mg Tablet Extended Release 24 Hr) PO SCH (08:26)
[2023-02-14] MEDS: VITAMIN C PO SCH (08:26)
[2023-02-14] MEDS: COZAAR PO SCH (08:26)
[2023-02-14] MEDS: CATAPRES TAB 0.2 MG PO SCH ×2 (08:26→20:04)
[2023-02-14] MEDS: XOPENEX 1.25 MG/3 ML NEBULE NEB SCH ×4 (10:30→20:10)
[2023-02-14] MEDS: NS 1,000 ML IV 1,000 ML IV SCH (13:26)
--- NOTE | 2023-02-14 16:27 | RAD ---
HISTORYSOB AKISTUDYCHEST, 1 [id number]/02/2023FINDINGSTrachea is midline, there is mild cardiomegaly. There is better aeration in the left base. No pleural effusion or pneumothorax. No new alveolar radiopacityIMPRESSIONImprovement of radiopacity in the left base probably subsegmental atelectasis.Electronically signed by: Izzy Geller (Feb 14, 2023 16:21:14)
[2023-02-14] MEDS: SNACK - Diabetic Appropriate PO SCH (20:03)
[2023-02-14] MEDS: LOPRESSOR TAB 25 MG PO SCH (20:03)
[2023-02-14] MEDS: NEURONTIN CAP 100 MG PO SCH (20:03)
[2023-02-14] MEDS: COLACE CAP 100 MG PO SCH (20:03)
[2023-02-14] MEDS: DESYREL PO SCH (20:04)
[2023-02-14] MEDS: LIPITOR TAB 40 MG PO SCH (20:04)
--- NOTE | 2023-02-14 22:01 | PCM.PROG ---
Progress Note - Progress Note for Day of Date of Exam: 02/14/23 - Subjective Subjective: IS CURRENTLY OBSERVATION STATUS FOR TREATMENT OF ACUTE KIDNEY INJURY AND ACUTE BRONCHITIS DUE TO RSV. HE HAS A PMH OF TYPE 2 DIABETES, HTN, CAD, AL, TIA, CARDIAC STENTS, HX OF PROSTATE CANCER. TODAY, HE IS ALERT, LYING IN BED ON MORNING ROUNDS. HE CONTINUES TO COMPLAIN OF SHORTNESS OF BREATH AT TIMES, COUGH, AND GENERALIZED WEAKNESS. COUGH IS NO LONGER PRODUCTIVE. NURSING STAFF REPORTS THAT HE IS VERY UNSTEADY ON AMBULATION AND REQUIRES USE OF THE WALKER AND ASSISTANCE FROM STAFF. PATIENTS SPOUSE ALSO REPORTS THAT HE HAS CONTINUED TO HAVE PERIODS OF CONFUSION. SHE IS WORRIED THAT SHE IS UNABLE TO CARE FOR HIM AT HOME. ON EXAMINATION, PATIENT CONTINUES TO HAVE INTERMITTENT P ERIODS OF EXPRESSIVE DYSPHAGIA. BILATERAL LUNGS ARE NOTED WITH DIMINISHED LUNG SOUNDS THROUGHOUT. ABDOMEN IS ROUND, SOFT, AND NON-TENDER WITH NORMAL BOWEL SOUNDS NOTED IN ALL QUADRANTS. GOOD RANGE OF MOTION NOTED TO BILATERAL LOWER EXTREMITIES WITH NO EDEMA NOTED. HIS VITALS THIS MORNING ARE: 98.0-6 1-18-94%-153/81. LABS WERE OBTAINED. WBC 4.4, RBC 3.87, HGB 12.1, HCT 34.7, PLT COUNT 288, SODIUM 139, POTASSIUM 4.1, CHLORIDE 106, BUN 12, CREATININE 1.48, GLUCOSE 141, CALCIUM 8.1, AST 39, ALT 42, ALK PHOS 65, TOTAL PROTEIN 5.9, ALBUMIN 2.9. BLOOD CULTURES ARE PENDING. A CHEST XRAY WAS OBTAINED AND REVEALED: Improvement of radiopacity in the left base probably subsegmental atelectasis. HE IS CURRENTLY RECEIVING NORMAL SALINE AT 75 ML/HR, CIPRO 400MG IV Q12H, XOPENEX NEBS QID, OTBS ACHS, HUMULIN R SLIDING SCALE. HIS HOME MEDICATIONS OF TYLENOL #3, NORVASC, VITAMIN C, ASPIRIN, LIPITOR, VITAMIN D3, CATAPRES, PLAVIX, COLACE, FLONASE, GABAPENTIN, LEVOTHYROXINE, LOSARTAN, MAGNESIUM OXIDE, METOPR OLOL, TRAZODONE. WE WILL CONTINUE WITH CURRENT PLAN OF CARE TODAY. WE WILL ATTEMPT TO FIND REHAB PLACEMENT FOR PHYSICAL THERAPY. OTHERWISE, WE WILL FOLLOW- UP WITH AM LABS AND CHEST XRAY AND CONTINUE TO MONITOR. TIME SPENT ON CLINICAL ASSESSMENT, REVIEWING LABS AND IMAGING, DECISION MAKING, AND DOCUMENTATION GREATER THAN 45 MINUTES. - Past Medical Family Social History Past Med/Fam/Surg Hx: No changes since H&P Allergies: Allergies Penicillins Allergy (Verified 08/17/19 11:16) - Review of Systems ROS: No change since H&P - Vital Signs and I&O's Vital Signs: Vital Signs Temperature 97.7 F Temperature 98 F Pulse Rate [Apical] 61 Pulse Rate [Apical] 63 Pulse Rate 60 Pulse Rate 65 Respiratory Rate 18 Respiratory Rate 18 Blood Pressure [Right Arm] 151/74 Blood Pressure [Right Arm] 125/67 O2 Sat by Pulse Oximetry 96 O2 Sat by Pulse Oximetry 97 O2 Sat by Pulse Oximetry 99 O2 Sat by Pulse Oximetry 96 Intake and Output: Intake & Output 02/12/23 02/13/23 02/14/23 02/15/23 11:59 11:59 11:59 11:59 Intake Total 3562 / 3562 2993 / 2993 2197 / 2197 1940 / 1940 Output Total 3750 / 3750 1810 / 1810 2880 / 2880 1300 / 1300 Balance -188 / -188 1183 / 1183 -683 / -683 640 / 640 - Physical Exam Oriented: Normal Eyes: Normal Ear: Normal Nose: Normal Throat: Normal Respiratory: Generalized, Diminished Cardiovascular: Normal : Normal Auscultation: Bowel Sounds: Normal Palpation: Normal Tenderness: Normal Skin: Normal Musculoskeletal: Normal Psychiatric: Normal Mood Description: Calm Affect: Normal Speech Pattern: Clear, Appropriate - Laboratory and Diagnostics Result Diagrams: 02/14/23 04:50 02/14/23 04:50 Labs: 02/09/23 19:22 Blood Blood Culture - Preliminary 02/09/23 19:35 Blood Blood Culture - Preliminary Laboratory WBC 4.4 X10^3/uL (3.6-10.0) 02/14/23 04:50 RBC 3.87 X10^6/uL (4.7-6.0) L 02/14/23 04:50 Hgb 12.1 g/dL (13.5-18.0) L 02/14/23 04:50 Hct 34.7 % (42.0-54.0) L 02/14/23 04:50 MCV 89.7 fL (80.0-100.0) 02/14/23 04:50 MCH 31.3 pg (27.0-34.0) 02/14/23 04:50 MCHC 34.9 g/dL (33.0-35.0) 02/14/23 04:50 RDW 14.2 % (11.6-16.5) 02/14/23 04:50 Plt Count 288 X10^3/uL (150.0-450.0) 02/14/23 04:50 Plt Count Comment Adequate (ADEQUATE) 02/11/23 04:10 MPV 7.9 fL (7.4-11.0) 02/14/23 04:50 Neut % (Auto) 50.5 % (42.0-75.0) 02/14/23 04:50 Lymph % (Auto) 31.4 % (21.0-51.0) 02/14/23 04:50 [place] % (Auto) 11.4 % (0.0-13.0) 02/14/23 04:50 Eos % (Auto) 6.0 % (0.9-2.9) H 02/14/23 04:50 Baso % (Auto) 0.7 % (0.2-1.0) 02/14/23 04:50 Neut # (Auto) 2.2 x10^3/uL (2.2-4.8) 02/14/23 04:50 Lymph # (Auto) 1.4 X10^3/uL (1.3-2.9) 02/14/23 04:50 [place] # (Auto) 0.5 x10^3/uL (0.3-0.8) 02/14/23 04:50 Eos # (Auto) 0.3 x10^3/uL (0.0-0.2) H 02/14/23 04:50 Baso # (Auto) 0.0 X10^3/uL (0.0-0.1) 02/14/23 04:50 Absolute Nucleated RBC 0.4 /100WBC 02/14/23 04:50 Total Counted 100 02/11/23 04:10 Neutrophils % (Manual) 47 % (39-76) 02/11/23 04:10 Band Neutrophils % 4 % (0-10) 02/11/23 04:10 Lymphocytes % (Manual) 31 % (13-43) 02/11/23 04:10 Monocytes % (Manual) 16 % (4-9) H 02/11/23 04:10 Eosinophils % (Manual) 2 % (0-6) 02/11/23 04:10 Plt Morphology Comment Normal (NORMAL) 02/11/23 04:10 RBC Morphology Normal (NORMAL) 02/11/23 04:10 Sodium 139 mmol/L (136-145) 02/14/23 04:50 Corrected Sodium 140 mmol/L (136-145) 02/14/23 04:50 Potassium 4.1 mmol/L (3.5-5.1) 02/14/23 04:50 Chloride 106 mmol/L (98-107) 02/14/23 04:50 Carbon Dioxide 24.6 mmol/L (21-32) 02/14/23 04:50 BUN 12 mg/dL (7-18) 02/14/23 04:50 Creatinine 1.48 mg/dL (0.70-1.30) H 02/14/23 04:50 Est GFR (MDRD) Af Amer 60 (>60) 02/14/23 04:50 Est GFR (MDRD) Non-Af 49 (>60) L 02/14/23 04:50 Glucose 141 mg/dL (65-99) H 02/14/23 04:50 POC Glucose (mg/dL) 179 mg/dL (65-99) H 02/14/23 19:40 Lactic Acid 1.4 mmol/L (0.4-2.0) 02/09/23 22:38 Calcium 8.1 mg/dL (8.5-10.1) L 02/14/23 04:50 Corrected Calcium 9.0 mg/dL (8.5-10.1) 02/14/23 04:50 Magnesium 2.1 mg/dL (2.0-2.9) 02/11/23 04:10 Total Bilirubin 0.40 mg/dL (0.2-1.0) 02/14/23 04:50 AST 39 Units/L (15-37) H 02/14/23 04:50 ALT 42 Units/L (12-78) 02/14/23 04:50 Alkaline Phosphatase 65 Units/L (46-116) 02/14/23 04:50 Troponin I High Sens 9.9 ng/L (4.0-60.0) 02/09/23 19:35 B-Natriuretic Peptide 71.9 pg/mL (0-79) 02/09/23 19:35 Total Protein 5.9 g/dL (6.4-8.2) L 02/14/23 04:50 Albumin 2.9 g/dL (3.4-5.0) L 02/14/23 04:50 Globulin 3.0 g/dL (2.5-4.5) 02/14/23 04:50 Albumin/Globulin Ratio 1.0 Ratio (1.1-2.1) L 02/14/23 04:50 Lipase 171 Units/L (73-393) 02/09/23 19:35 Specimen Type Clean catch urine 02/10/23 01:05 Urine Color Yellow (YELLOW) 02/10/23 01:05 Urine Appearance Clear (CLEAR) 02/10/23 01:05 Urine pH 5.0 (5.0 - 8.0) 02/10/23 01:05 Ur Specific [place] 1.015 (1.000-1.030) 02/10/23 01:05 Urine Protein 1+ (NEGATIVE) 02/10/23 01:05 Urine Glucose (UA) 4+ (NEGATIVE) 02/10/23 01:05 Urine Ketones Negative (NEGATIVE) 02/10/23 01:05 Urine Blood Negative (NEGATIVE) 02/10/23 01:05 Urine Nitrite Negative (NEGATIVE) 02/10/23 01:05 Urine Bilirubin Negative (NEGATIVE) 02/10/23 01:05 Urine Urobilinogen Normal (NORMAL) 02/10/23 01:05 Ur Leukocyte Esterase Negative (NEGATIVE) 02/10/23 01:05 Urine RBC None seen /HPF (0-3) 02/10/23 01:05 Urine WBC None seen /HPF (0-5) 02/10/23 01:05 Ur Squamous Epith Cells Negative /HPF (NEGATIVE) 02/10/23 01:05 Urine Bacteria Negative /HPF (NEGATIVE) 02/10/23 01:05 Hyaline Casts Rare /LPF (NEGATIVE) 02/10/23 01:05 Ur Culture Indicated? No/not indicated 02/10/23 01:05 SARS-CoV-2 (PCR) Negative (NEGATIVE) 02/09/23 19:48 Influenza Type A (PCR) Negative (NEGATIVE) 02/09/23 19:48 Influenza Type B (PCR) Negative (NEGATIVE) 02/09/23 19:48 RSV (PCR) Positive (NEGATIVE) A 02/09/23 19:48 - Plan (1) RITA (acute kidney injury) Status: Acute Plan: NORMAL SALINE AT 75 ML/HR, CIPRO 400MG IV Q12H, XOPENEX NEBS QID, OTBS ACHS, HUMULIN R SLIDING SCALE. HIS HOME MEDICATIONS OF GLIPIZIDE, TYLENOL #3, NORVASC, VITAMIN C, ASPIRIN, LIPITOR, VITAMIN D3, CATAPRES, PLAVIX, COLACE, FLONASE, GABAPENTIN, LEVOTHYROXINE, LOSARTAN, MAGNESIUM OXIDE, METOPROLOL, TRAZODONE. (2) Acute bronchitis Status: Acute Qualifiers: Bronchitis organism: RSV Qualified Code(s): J20.5 - Acute bronchitis due to respiratory syncytial virus (3) Expressive dysphasia Status: Acute Plan: CONTINUE TO MONITOR (4) Generalized weakness Status: Acute (5) BPH (benign prostatic hyperplasia) Status: Chronic Qualifiers: Lower urinary tract symptom presence: symptoms absent Qualified Code(s): N40.0 - Benign prostatic hyperplasia without lower urinary tract symptoms (6) Coronary artery disease Status: Chronic Qualifiers: Coronary Disease-Associated Artery/Lesion type: [place] artery [place] vs. transplanted heart: [place] heart Associated angina: without angina Qualified Code(s): I25.10 - Atherosclerotic heart disease of [place] coronary artery without angina pectoris (7) Diabetes mellitus, type 2 Status: Chronic Qualifiers: Diabetes mellitus halfway insulin use: with halfway use Diabetes mellitus complication status: with hyperglycemia Qualified Code(s): E11.65 - T ype 2 diabetes mellitus with hyperglycemia; Z79.4 - jail (current) use of insulin Plan: CONTINUE GLIPIZIDE (8) Hypertension Status: Chronic Qualifiers: Hypertension type: primary hypertension Qualified Code(s): I10 - Essential (primary) hypertension
[2023-02-15] MEDS: NS 1,000 ML IV 1,000 ML IV SCH ×2 (01:52→16:54)
[2023-02-15 06:27] LABS: BASOPHILS % (AUTO) 0.3 % (0.2-1.0); EOSINOPHILS # (AUTO) 0.3 x10^3/uL (0.0-0.2); EOSINOPHILS % (AUTO) 7.4 % (0.9-2.9); HEMATOCRIT 36.4 % (42.0-54.0); HEMOGLOBIN 12.7 g/dL (13.5-18.0); LYMPHOCYTES # (AUTO) 1.2 X10^3/uL (1.3-2.9); LYMPHOCYTES % (AUTO) 29.7 % (21.0-51.0); MEAN CORPUSCULAR HEMOGLOBIN 31.3 pg (27.0-34.0); MEAN CORPUSCULAR HGB CONC 34.8 g/dL (33.0-35.0); MEAN PLATELET VOLUME 7.3 fL (7.4-11.0); MONOCYTES # (AUTO) 0.5 x10^3/uL (0.3-0.8); MONOCYTES % (AUTO) 12.1 % (0.0-13.0); NEUTROPHILS # (AUTO) 2.1 x10^3/uL (2.2-4.8); NEUTROPHILS % (AUTO) 50.5 % (42.0-75.0); PLATELET COUNT 280 X10^3/uL (150.0-450.0); RED BLOOD COUNT 4.04 X10^6/uL (4.7-6.0); RED CELL DISTRIBUTION WIDTH 14.4 % (11.6-16.5); WHITE BLOOD COUNT 4.2 X10^3/uL (3.6-10.0)
[2023-02-15 06:37] LABS: BLOOD UREA NITROGEN 14 mg/dL (7-18); CALCIUM 8.3 mg/dL (8.5-10.1); CARBON DIOXIDE 23.1 mmol/L (21-32); CHLORIDE 104 mmol/L (98-107); COR NA(FOR HYPERGLY) 138 mmol/L (136-145); CREATININE 1.28 mg/dL (0.70-1.30); GLUCOSE 153 mg/dL (65-99); POTASSIUM 4.2 mmol/L (3.5-5.1); SODIUM 137 mmol/L (136-145); eGFR NON BLACK RACES 58 (>60)
[2023-02-15] MEDS: LOVENOX INJ 30 MG SYR SC SCH (08:11)
[2023-02-15] MEDS: MILK OF MAGNESIA PO SCH (08:11)
[2023-02-15] MEDS: ASPIRIN PO SCH (08:11)
[2023-02-15] MEDS: VITAMIN C PO SCH (08:11)
[2023-02-15] MEDS: GLUCOTROL PO SCH ×2 (08:11→20:53)
[2023-02-15] MEDS: SYNTHROID 100 mcg TAB PO SCH (08:11)
[2023-02-15] MEDS: NORVASC TAB 10 MG PO SCH (08:11)
[2023-02-15] MEDS: COZAAR PO SCH (08:12)
[2023-02-15] MEDS: PLAVIX PO SCH (08:12)
[2023-02-15] MEDS: LOPRESSOR TAB 50 MG PO SCH (08:12)
[2023-02-15] MEDS: PATIENT'S HOME MEDICATION (Alfuzosin 10 mg Tablet Extended Release 24 Hr) PO SCH (08:12)
[2023-02-15] MEDS: CATAPRES TAB 0.2 MG PO SCH ×2 (08:12→20:52)
[2023-02-15] MEDS: CIPRO IV 400 MG PREMIX* 400 MG/200 ML IV.SOLN. IV SCH ×2 (08:14→20:54)
[2023-02-15] MEDS: FLONASE NASAL SPRAY ENOSTRIL SCH (08:14)
[2023-02-15] MEDS: VITAMIN D3 25 mcg (1,000 UNITS) PO SCH (08:20)
[2023-02-15] MEDS: XOPENEX 1.25 MG/3 ML NEBULE NEB SCH ×4 (09:03→20:15)
--- NOTE | 2023-02-15 12:07 | RAD ---
HISTORYRSV SOBSTUDYPortable AP chestCOMPARISONJuly 2022FINDINGSThere is no change in appearance of heart or lungs. Indistinct linear densities are again noted in the retrocardiac left lower lobe with clear right chest and left upper lung.IMPRESSIONNo change. Findings at the left base are consistent with mild residual inflammatory process. Continued follow-up indicated.Electronically signed by: MARTIN LOERA (Feb 15, 2023 12:06:25)
[2023-02-15] MEDS: NEURONTIN CAP 100 MG PO SCH (20:52)
[2023-02-15] MEDS: COLACE CAP 100 MG PO SCH (20:52)
[2023-02-15] MEDS: DESYREL PO SCH (20:53)
[2023-02-15] MEDS: SNACK - Diabetic Appropriate PO SCH (20:53)
[2023-02-15] MEDS: LOPRESSOR TAB 25 MG PO SCH (20:53)
[2023-02-15] MEDS: LIPITOR TAB 40 MG PO SCH (20:53)
--- NOTE | 2023-02-15 21:22 | PCM.PROG ---
Progress Note - Progress Note for Day of Date of Exam: 02/15/23 - Subjective Subjective: IS CURRENTLY OBSERVATION STATUS FOR TREATMENT OF ACUTE KIDNEY INJURY AND ACUTE BRONCHITIS DUE TO RSV. HE HAS A PMH OF TYPE 2 DIABETES, HTN, CAD, OR, TIA, CARDIAC STENTS, HX OF PROSTATE CANCER. TODAY, HE IS ALERT, LYING IN BED ON MORNING ROUNDS. HE CONTINUES TO COMPLAIN OF SHORTNESS OF BREATH AT TIMES, A NONPRODUCTIVE COUGH, AND GENERALIZED WEAKNESS. NURSING STAFF REPORTS THAT HE IS VERY UNSTEADY ON AMBULATION AND REQUIRES USE OF THE WALKER AND ASSISTANCE FROM STAFF. PATIENTS SPOUSE ALSO REPORTS THAT HE HAS CONTINUED TO HAVE PERIODS OF CONFUSION. SHE IS WORRIED THAT SHE IS UNABLE TO CARE FOR HIM AT HOME. ON EXAMINATION, HEART IS REGULAR IN RATE AND RHYTHM. BILATERAL LUNGS ARE NOTED WITH DIMINISHED LUNG SOUNDS THROUGHOUT. ABDOMEN IS ROUND, SOFT, AND NON- TENDER WITH NORMAL BOWEL SOUNDS NOTED IN ALL QUADRANTS. WEAKNESS OF LOWER EXTREMITIES NOTED TO WITH NO EDEMA. HIS VITALS THIS MORNING ARE: 97.8-55-18-94%-160/75. LABS WERE OBTAINED. WBC 4.2, RBC 4.04, RBC 12.7, HCT 36.4, PLT COUNT 280, SODIUM 137, POTASSIUM 4.2, CHLORIDE 104, BUN 14, CREATININE 1.28, GLUCOSE 153, CALCIUM 8.3. BLOOD CULTURES ARE PENDING. A CHEST XRAY WAS OBTAINED AND REVEALED: No change. Findings at the left base are consistent with mild residual inflammatory process. HE IS CURRENTLY RECEIVING NORMAL SALINE AT 75 ML/HR, CIPRO 400MG IV Q12H, XOPENEX NEBS QID, OTBS ACHS, HUMULIN R SLIDING SCALE. HIS HOME MEDICATIONS OF TYLENOL #3, NORVASC, VITAMIN C, ASPIRIN, LIPITOR, VITAMIN D3, CATAPRES, PLAVIX, COLACE, FLONASE, GABAPENTIN, LEVOTHYROXINE, LOSARTAN, MAGNESIUM OXIDE, METOPROLOL, TRAZODONE. WE WILL CONTINUE WITH CURRENT PLAN OF CARE TODAY. PATIENT AND HIS SPOUSE REQUEST PLACEMENT AT [facility] IN [place], [place], THIS FACILITY IS CONTRACTED WITH THE [facility]. WE WILL ATTEMPT PLACEMENT. OTHERWISE, WE WILL FOLLOW-UP WITH AM LABS AND CHEST XRAY AND CONTINUE TO MONITOR. TIME SPENT ON CLINICAL ASSESSMENT, REVIEWING LABS AND IMAGING, DECISION MAKING, AND DOCUMENTATION GREATER THAN 45 MINUTES. - Past Medical Family Social History Past Med/Fam/Surg Hx: No changes since H&P Allergies: Allergies Penicillins Allergy (Verified 08/17/19 11:16) - Review of Systems ROS: No change since H&P - Vital Signs and I&O's Vital Signs: Vital Signs Temperature 97.9 F Temperature 97.1 F Pulse Rate [Apical] 58 Pulse Rate [Apical] 59 Respiratory Rate 18 Respiratory Rate 18 Blood Pressure [Right Arm] 159/75 Blood Pressure [Right Arm] 141/75 O2 Sat by Pulse Oximetry 94 O2 Sat by Pulse Oximetry 97 Intake and Output: Intake & Output 02/13/23 02/14/23 02/15/23 02/16/23 11:59 11:59 11:59 11:59 Intake Total 2993 / 2993 2197 / 2197 3857 / 3857 480 / 480 Output Total 1810 / 1810 2880 / 2880 2960 / 2960 300 / 300 Balance 1183 / 1183 -683 / -683 897 / 897 180 / 180 - Physical Exam Oriented: Normal Eyes: Normal Ear: Normal Nose: Normal Throat: Normal Respiratory: Generalized, Diminished Cardiovascular: Normal : Normal Auscultation: Bowel Sounds: Normal Palpation: Normal Tenderness: Normal Skin: Normal Musculoskeletal: Normal Psychiatric: Normal Mood Description: Calm Affect: Normal Speech Pattern: Clear, Appropriate - Laboratory and Diagnostics Result Diagrams: 02/15/23 06:08 02/15/23 06:08 Labs: 02/09/23 19:22 Blood Blood Culture - Final 02/09/23 19:35 Blood Blood Culture - Final Laboratory WBC 4.2 X10^3/uL (3.6-10.0) 02/15/23 06:08 RBC 4.04 X10^6/uL (4.7-6.0) L 02/15/23 06:08 Hgb 12.7 g/dL (13.5-18.0) L 02/15/23 06:08 Hct 36.4 % (42.0-54.0) L 02/15/23 06:08 MCV 90.0 fL (80.0-100.0) 02/15/23 06:08 MCH 31.3 pg (27.0-34.0) 02/15/23 06:08 MCHC 34.8 g/dL (33.0-35.0) 02/15/23 06:08 RDW 14.4 % (11.6-16.5) 02/15/23 06:08 Plt Count 280 X10^3/uL (150.0-450.0) 02/15/23 06:08 Plt Count Comment Adequate (ADEQUATE) 02/11/23 04:10 MPV 7.3 fL (7.4-11.0) L 02/15/23 06:08 Neut % (Auto) 50.5 % (42.0-75.0) 02/15/23 06:08 Lymph % (Auto) 29.7 % (21.0-51.0) 02/15/23 06:08 [place] % (Auto) 12.1 % (0.0-13.0) 02/15/23 06:08 Eos % (Auto) 7.4 % (0.9-2.9) H 02/15/23 06:08 Baso % (Auto) 0.3 % (0.2-1.0) 02/15/23 06:08 Neut # (Auto) 2.1 x10^3/uL (2.2-4.8) L 02/15/23 06:08 Lymph # (Auto) 1.2 X10^3/uL (1.3-2.9) L 02/15/23 06:08 [place] # (Auto) 0.5 x10^3/uL (0.3-0.8) 02/15/23 06:08 Eos # (Auto) 0.3 x10^3/uL (0.0-0.2) H 02/15/23 06:08 Baso # (Auto) 0.0 X10^3/uL (0.0-0.1) 02/15/23 06:08 Absolute Nucleated RBC 0.1 /100WBC 02/15/23 06:08 Total Counted 100 02/11/23 04:10 Neutrophils % (Manual) 47 % (39-76) 02/11/23 04:10 Band Neutrophils % 4 % (0-10) 02/11/23 04:10 Lymphocytes % (Manual) 31 % (13-43) 02/11/23 04:10 Monocytes % (Manual) 16 % (4-9) H 02/11/23 04:10 Eosinophils % (Manual) 2 % (0-6) 02/11/23 04:10 Plt Morphology Comment Normal (NORMAL) 02/11/23 04:10 RBC Morphology Normal (NORMAL) 02/11/23 04:10 Sodium 137 mmol/L (136-145) 02/15/23 06:08 Corrected Sodium 138 mmol/L (136-145) 02/15/23 06:08 Potassium 4.2 mmol/L (3.5-5.1) 02/15/23 06:08 Chloride 104 mmol/L (98-107) 02/15/23 06:08 Carbon Dioxide 23.1 mmol/L (21-32) 02/15/23 06:08 BUN 14 mg/dL (7-18) 02/15/23 06:08 Creatinine 1.28 mg/dL (0.70-1.30) 02/15/23 06:08 Est GFR (MDRD) Af Amer > 60 (>60) 02/15/23 06:08 Est GFR (MDRD) Non-Af 58 (>60) L 02/15/23 06:08 Glucose 153 mg/dL (65-99) H 02/15/23 06:08 POC Glucose (mg/dL) 159 mg/dL (65-99) H 02/15/23 20:51 Lactic Acid 1.4 mmol/L (0.4-2.0) 02/09/23 22:38 Calcium 8.3 mg/dL (8.5-10.1) L 02/15/23 06:08 Corrected Calcium 9.0 mg/dL (8.5-10.1) 02/14/23 04:50 Magnesium 2.1 mg/dL (2.0-2.9) 02/11/23 04:10 Total Bilirubin 0.40 mg/dL (0.2-1.0) 02/14/23 04:50 AST 39 Units/L (15-37) H 02/14/23 04:50 ALT 42 Units/L (12-78) 02/14/23 04:50 Alkaline Phosphatase 65 Units/L (46-116) 02/14/23 04:50 Troponin I High Sens 9.9 ng/L (4.0-60.0) 02/09/23 19:35 B-Natriuretic Peptide 71.9 pg/mL (0-79) 02/09/23 19:35 Total Protein 5.9 g/dL (6.4-8.2) L 02/14/23 04:50 Albumin 2.9 g/dL (3.4-5.0) L 02/14/23 04:50 Globulin 3.0 g/dL (2.5-4.5) 02/14/23 04:50 Albumin/Globulin Ratio 1.0 Ratio (1.1-2.1) L 02/14/23 04:50 Lipase 171 Units/L (73-393) 02/09/23 19:35 Specimen Type Clean catch urine 02/10/23 01:05 Urine Color Yellow (YELLOW) 02/10/23 01:05 Urine Appearance Clear (CLEAR) 02/10/23 01:05 Urine pH 5.0 (5.0 - 8.0) 02/10/23 01:05 Ur Specific [place] 1.015 (1.000-1.030) 02/10/23 01:05 Urine Protein 1+ (NEGATIVE) 02/10/23 01:05 Urine Glucose (UA) 4+ (NEGATIVE) 02/10/23 01:05 Urine Ketones Negative (NEGATIVE) 02/10/23 01:05 Urine Blood Negative (NEGATIVE) 02/10/23 01:05 Urine Nitrite Negative (NEGATIVE) 02/10/23 01:05 Urine Bilirubin Negative (NEGATIVE) 02/10/23 01:05 Urine Urobilinogen Normal (NORMAL) 02/10/23 01:05 Ur Leukocyte Esterase Negative (NEGATIVE) 02/10/23 01:05 Urine RBC None seen /HPF (0-3) 02/10/23 01:05 Urine WBC None seen /HPF (0-5) 02/10/23 01:05 Ur Squamous Epith Cells Negative /HPF (NEGATIVE) 02/10/23 01:05 Urine Bacteria Negative /HPF (NEGATIVE) 02/10/23 01:05 Hyaline Casts Rare /LPF (NEGATIVE) 02/10/23 01:05 Ur Culture Indicated? No/not indicated 02/10/23 01:05 SARS-CoV-2 (PCR) Negative (NEGATIVE) 02/09/23 19:48 Influenza Type A (PCR) Negative (NEGATIVE) 02/09/23 19:48 Influenza Type B (PCR) Negative (NEGATIVE) 02/09/23 19:48 RSV (PCR) Positive (NEGATIVE) A 02/09/23 19:48 - Plan (1) RITA (acute kidney injury) Status: Acute Plan: NORMAL SALINE AT 75 ML/HR, CIPRO 400MG IV Q12H, XOPENEX NEBS QID, OTBS ACHS, HUMULIN R SLIDING SCALE. HIS HOME MEDICATIONS OF GLIPIZIDE, TYLENOL #3, NORVASC, VITAMIN C, ASPIRIN, LIPITOR, VITAMIN D3, CATAPRES, PLAVIX, COLACE, FLONASE, GABAPENTIN, LEVOTHYROXINE, LOSARTAN, MAGNESIUM OXIDE, METOPROLOL, TRAZODONE. (2) Acute bronchitis Status: Acute Qualifiers: Bronchitis organism: RSV Qualified Code(s): J20.5 - Acute bronchitis due to respiratory syncytial virus (3) Expressive dysphasia Status: Acute Plan: CONTINUE TO MONITOR (4) Generalized weakness Status: Acute (5) BPH (benign prostatic hyperplasia) Status: Chronic Qualifiers: Lower urinary tract symptom presence: symptoms absent Qualified Code(s): N40.0 - Benign prostatic hyperplasia without lower urinary tract symptoms (6) Coronary artery disease Status: Chronic Qualifiers: Coronary Disease-Associated Artery/Lesion type: [place] artery [place] vs. transplanted heart: [place] heart Associated angina: without angina Qualified Code(s): I25.10 - Atherosclerotic heart disease of [place] coronary artery without angina pectoris (7) Diabetes mellitus, type 2 Status: Chronic Qualifiers: Diabetes mellitus skilled nursing insulin use: with skilled nursing use Diabetes mellitus complication status: with hyperglycemia Qualified Code(s): E11.65 - Type 2 diabetes mellitus with hyperglycemia; Z79.4 - terminal clerk (current) use of insulin Plan: CONTINUE GLIPIZIDE (8) Hypertension Status: Chronic Qualifiers: Hypertension type: primary hypertension Qualified Code(s): I10 - Essential (primary) hypertension
[2023-02-16] MEDS: NS 1,000 ML IV 1,000 ML IV SCH ×2 (05:17→20:51)
[2023-02-16 06:18] LABS: BASOPHILS % (AUTO) 0.3 % (0.2-1.0); EOSINOPHILS # (AUTO) 0.3 x10^3/uL (0.0-0.2); EOSINOPHILS % (AUTO) 5.9 % (0.9-2.9); HEMATOCRIT 37.8 % (42.0-54.0); LYMPHOCYTES # (AUTO) 1.5 X10^3/uL (1.3-2.9); MEAN CORPUSCULAR HEMOGLOBIN 31.1 pg (27.0-34.0); MEAN CORPUSCULAR HGB CONC 34.4 g/dL (33.0-35.0); MEAN CORPUSCULAR VOLUME 90.4 fL (80.0-100.0); MEAN PLATELET VOLUME 7.5 fL (7.4-11.0); MONOCYTES # (AUTO) 0.5 x10^3/uL (0.3-0.8); MONOCYTES % (AUTO) 9.8 % (0.0-13.0); NEUTROPHILS # (AUTO) 2.8 x10^3/uL (2.2-4.8); PLATELET COUNT 300 X10^3/uL (150.0-450.0); RED BLOOD COUNT 4.18 X10^6/uL (4.7-6.0); RED CELL DISTRIBUTION WIDTH 14.4 % (11.6-16.5); WHITE BLOOD COUNT 5.2 X10^3/uL (3.6-10.0)
[2023-02-16 06:19] LABS: BLOOD UREA NITROGEN 14 mg/dL (7-18); CALCIUM 8.4 mg/dL (8.5-10.1); CARBON DIOXIDE 23.5 mmol/L (21-32); CHLORIDE 103 mmol/L (98-107); COR NA(FOR HYPERGLY) 137 mmol/L (136-145); GLUCOSE 130 mg/dL (65-99); POTASSIUM 4.1 mmol/L (3.5-5.1); SODIUM 136 mmol/L (136-145); eGFR NON BLACK RACES 57 (>60)
[2023-02-16] MEDS: XOPENEX 1.25 MG/3 ML NEBULE NEB SCH ×4 (09:01→20:48)
[2023-02-16] MEDS: LOVENOX INJ 30 MG SYR SC SCH (09:07)
[2023-02-16] MEDS: PLAVIX PO SCH (09:08)
[2023-02-16] MEDS: GLUCOTROL PO SCH ×2 (09:08→20:53)
[2023-02-16] MEDS: ASPIRIN PO SCH (09:08)
[2023-02-16] MEDS: SYNTHROID 100 mcg TAB PO SCH (09:08)
[2023-02-16] MEDS: CATAPRES TAB 0.2 MG PO SCH ×2 (09:09→20:52)
[2023-02-16] MEDS: COZAAR PO SCH (09:09)
[2023-02-16] MEDS: MILK OF MAGNESIA PO SCH (09:09)
[2023-02-16] MEDS: VITAMIN C PO SCH (09:09)
[2023-02-16] MEDS: CIPRO IV 400 MG PREMIX* 400 MG/200 ML IV.SOLN. IV SCH ×2 (09:09→20:51)
[2023-02-16] MEDS: VITAMIN D3 25 mcg (1,000 UNITS) PO SCH (09:09)
[2023-02-16] MEDS: FLONASE NASAL SPRAY ENOSTRIL SCH (09:10)
[2023-02-16] MEDS: NORVASC TAB 10 MG PO SCH (09:11)
[2023-02-16] MEDS: LOPRESSOR TAB 50 MG PO SCH (09:12)
[2023-02-16] MEDS: PATIENT'S HOME MEDICATION (Alfuzosin 10 mg Tablet Extended Release 24 Hr) PO SCH (09:27)
--- NOTE | 2023-02-16 19:11 | PCM.PROG ---
Progress Note - Progress Note for Day of Date of Exam: 02/16/23 - Subjective Subjective: IS CURRENTLY OBSERVATION STATUS FOR TREATMENT OF ACUTE KIDNEY INJURY AND ACUTE BRONCHITIS DUE TO RSV. HE HAS A PMH OF TYPE 2 DIABETES, HTN, CAD, [place], TIA, CARDIAC STENTS, HX OF PROSTATE CANCER. TODAY, HE IS ALERT, SITTING UP IN CHAIR ON MORNING ROUNDS. HE CONTINUES TO COMPLAIN OF SHORTNESS OF BREATH AT TIMES, A NONPRODUCTIVE COUGH, AND GENERALIZED WEAKNESS. NURSING STAFF REPORTS THAT HE IS VERY UNSTEADY ON AMBULATION AND REQUIRES USE OF THE WALKER AND ASSISTANCE FROM STAFF. HIS SPOUSE IS WORRIED THAT SHE WILL BE UNABLE TO CARE FOR HIM AT HOME. ON EXAMINATION, HE IS BRADYCARDIC WITH HR IN THE 50s. BILATERAL LUNGS ARE NOTED WITH DIMINISHED LUNG SOUNDS THROUGHOUT. ABDOMEN IS RO UND, SOFT, AND NON-TENDER WITH NORMAL BOWEL SOUNDS NOTED IN ALL QUADRANTS. WEAKNESS OF LOWER EXTREMITIES NOTED TO WITH NO EDEMA. HIS VITALS THIS MORNING ARE: 98.1-56-18-94%-184/82. LABS WERE OBTAINED. WBC 5.2, RBC 4.18, HGB 13.0, HCT 37.8, PLT COUNT 300, SODIUM 136, POTASSIUM 4.1, CHLORIDE 103, BUN 14, CREATININE 1.30, CALCIUM 8.4. BLOOD CULTURES ARE PENDING. HE IS CURRENTLY RECEIVING NORMAL SALINE AT 75 ML/HR, CIPRO 400MG IV Q12H, XOPENEX NEBS QID, OTBS ACHS, HUMULIN R SLIDING SCALE. HIS HOME MEDICATIONS OF TYLENOL #3, NORVASC, VITAMIN C, ASPIRIN, LIPITOR, VITAMIN D3, CATAPRES, PLAVIX, COLACE, FLONASE, GABAPENTIN, LEVOTHYROXINE, LOSARTAN, MAGNESIUM OXIDE, METOPROLOL, TRAZODONE. WE WILL CONT INUE WITH CURRENT PLAN OF CARE TODAY. PATIENT AND HIS SPOUSE REQUEST PLACEMENT AT [facility] IN [place], [place], THIS FACILITY IS CONTRACTED WITH THE [place]. WE WILL ATTEMPT PLACEMENT. OTHERWISE, WE WILL FOLLOW-UP WITH AM LABS AND CHEST XRAY AND CONTINUE TO MONITOR. TIME SPENT ON CLINICAL ASSESSMENT, REVIEWING LABS AND IMAGING, DECISION MAKING, AND DOCUMENTATION GREATER THAN 45 MINUTES. - Past Medical Family Social History Past Med/Fam/Surg Hx: No changes since H&P Allergies: Allergies Penicillins Allergy (Verified 08/17/19 11:16) - Review of Systems ROS: No change since H&P - Vital Signs and I&O's Vital Signs: Vital Signs Temperature 97.5 F Temperature 98.0 F Pulse Rate [Apical] 62 Pulse Rate [Apical] 59 Respiratory Rate 18 Respiratory Rate 20 Blood Pressure [Right Arm] 124/62 Blood Pressure [Right Arm] 150/75 O2 Sat by Pulse Oximetry 95 O2 Sat by Pulse Oximetry 92 Intake and Output: Intake & Output 02/14/23 02/15/23 02/16/23 02/17/23 11:59 11:59 11:59 11:59 Intake Total 2197 / 2197 3857 / 3857 2550 / 2550 1507 / 1507 Output Total 2880 / 2880 2960 / 2960 2525 / 2525 0 / 0 Balance -683 / -683 897 / 897 1507 / 1507 - Physical Exam Oriented: Normal Eyes: Normal Ear: Normal Nose: Normal Throat: Normal Respiratory: Generalized, Diminished Cardiovascular: Normal : Normal Auscultation: Bowel Sounds: Normal Tenderness: Normal Skin: Normal Musculoskeletal: Normal Psychiatric: Normal Mood Description: Calm Affect: Normal Speech Pattern: Clear, Appropriate - Laboratory and Diagnostics Result Diagrams: 02/16/23 05:42 02/16/23 05:42 Labs: 02/09/23 19:22 Blood Blood Culture - Final 02/09/23 19:35 Blood Blood Culture - Final Laboratory WBC 5.2 X10^3/uL (3.6-10.0) 02/16/23 05:42 RBC 4.18 X10^6/uL (4.7-6.0) L 02/16/23 05:42 Hgb 13.0 g/dL (13.5-18.0) L 02/16/23 05:42 Hct 37.8 % (42.0-54.0) L 02/16/23 05:42 MCV 90.4 fL (80.0-100.0) 02/16/23 05:42 MCH 31.1 pg (27.0-34.0) 02/16/23 05:42 MCHC 34.4 g/dL (33.0-35.0) 02/16/23 05:42 RDW 14.4 % (11.6-16.5) 02/16/23 05:42 Plt Count 300 X10^3/uL (150.0-450.0) 02/16/23 05:42 Plt Count Comment Adequate (ADEQUATE) 02/11/23 04:10 MPV 7.5 fL (7.4-11.0) 02/16/23 05:42 Neut % (Auto) 54.0 % (42.0-75.0) 02/16/23 05:42 Lymph % (Auto) 30.0 % (21.0-51.0) 02/16/23 05:42 [place] % (Auto) 9.8 % (0.0-13.0) 02/16/23 05:42 Eos % (Auto) 5.9 % (0.9-2.9) H 02/16/23 05:42 Baso % (Auto) 0.3 % (0.2-1.0) 02/16/23 05:42 Neut # (Auto) 2.8 x10^3/uL (2.2-4.8) 02/16/23 05:42 Lymph # (Auto) 1.5 X10^3/uL (1.3-2.9) 02/16/23 05:42 [place] # (Auto) 0.5 x10^3/uL (0.3-0.8) 02/16/23 05:42 Eos # (Auto) 0.3 x10^3/uL (0.0-0.2) H 02/16/23 05:42 Baso # (Auto) 0.0 X10^3/uL (0.0-0.1) 02/16/23 05:42 Absolute Nucleated RBC 0.1 /100WBC 02/16/23 05:42 Total Counted 100 02/11/23 04:10 Neutrophils % (Manual) 47 % (39-76) 02/11/23 04:10 Band Neutrophils % 4 % (0-10) 02/11/23 04:10 Lymphocytes % (Manual) 31 % (13-43) 02/11/23 04:10 Monocytes % (Manual) 16 % (4-9) H 02/11/23 04:10 Eosinophils % (Manual) 2 % (0-6) 02/11/23 04:10 Plt Morphology Comment Normal (NORMAL) 02/11/23 04:10 RBC Morphology Normal (NORMAL) 02/11/23 04:10 Sodium 136 mmol/L (136-145) 02/16/23 05:42 Corrected Sodium 137 mmol/L (136-145) 02/16/23 05:42 Potassium 4.1 mmol/L (3.5-5.1) 02/16/23 05:42 Chloride 103 mmol/L (98-107) 02/16/23 05:42 Carbon Dioxide 23.5 mmol/L (21-32) 02/16/23 05:42 BUN 14 mg/dL (7-18) 02/16/23 05:42 Creatinine 1.30 mg/dL (0.70-1.30) 02/16/23 05:42 Est GFR (MDRD) Af Amer > 60 (>60) 02/16/23 05:42 Est GFR (MDRD) Non-Af 57 (>60) L 02/16/23 05:42 Glucose 130 mg/dL (65-99) H 02/16/23 05:42 POC Glucose (mg/dL) 101 mg/dL (65-99) H 02/16/23 16:18 Lactic Acid 1.4 mmol/L (0.4-2.0) 02/09/23 22:38 Calcium 8.4 mg/dL (8.5-10.1) L 02/16/23 05:42 Corrected Calcium 9.0 mg/dL (8.5-10.1) 02/14/23 04:50 Magnesium 2.1 mg/dL (2.0-2.9) 02/11/23 04:10 Total Bilirubin 0.40 mg/dL (0.2-1.0) 02/14/23 04:50 AST 39 Units/L (15-37) H 02/14/23 04:50 ALT 42 Units/L (12-78) 02/14/23 04:50 Alkaline Phosphatase 65 Units/L (46-116) 02/14/23 04:50 Troponin I High Sens 9.9 ng/L (4.0-60.0) 02/09/23 19:35 B-Natriuretic Peptide 71.9 pg/mL (0-79) 02/09/23 19:35 Total Protein 5.9 g/dL (6.4-8.2) L 02/14/23 04:50 Albumin 2.9 g/dL (3.4-5.0) L 02/14/23 04:50 Globulin 3.0 g/dL (2.5-4.5) 02/14/23 04:50 Albumin/Globulin Ratio 1.0 Ratio (1.1-2.1) L 02/14/23 04:50 Lipase 171 Units/L (73-393) 02/09/23 19:35 Specimen Type Clean catch urine 02/10/23 01:05 Urine Color Yellow (YELLOW) 02/10/23 01:05 Urine Appearance Clear (CLEAR) 02/10/23 01:05 Urine pH 5.0 (5.0 - 8.0) 02/10/23 01:05 Ur Specific [place] 1.015 (1.000-1.030) 02/10/23 01:05 Urine Protein 1+ (NEGATIVE) 02/10/23 01:05 Urine Glucose (UA) 4+ (NEGATIVE) 02/10/23 01:05 Urine Ketones Negative (NEGATIVE) 02/10/23 01:05 Urine Blood Negative (NEGATIVE) 02/10/23 01:05 Urine Nitrite Negative (NEGATIVE) 02/10/23 01:05 Urine Bilirubin Negative (NEGATIVE) 02/10/23 01:05 Urine Urobilinogen Normal (NORMAL) 02/10/23 01:05 Ur Leukocyte Esterase Negative (NEGATIVE) 02/10/23 01:05 Urine RBC None seen /HPF (0-3) 02/10/23 01:05 Urine WBC None seen /HPF (0-5) 02/10/23 01:05 Ur Squamous Epith Cells Negative /HPF (NEGATIVE) 02/10/23 01:05 Urine Bacteria Negative /HPF (NEGATIVE) 02/10/23 01:05 Hyaline Casts Rare /LPF (NEGATIVE) 02/10/23 01:05 Ur Culture Indicated? No/not indicated 02/10/23 01:05 SARS-CoV-2 (PCR) Negative (NEGATIVE) 02/09/23 19:48 Influenza Type A (PCR) Negative (NEGATIVE) 02/09/23 19:48 Influenza Type B (PCR) Negative (NEGATIVE) 02/09/23 19:48 RSV (PCR) Positive (NEGATIVE) A 02/09/23 19:48 - Plan (1) RITA (acute kidney injury) Status: Acute Plan: NORMAL SALINE AT 75 ML/HR, CIPRO 400MG IV Q12H, XOPENEX NEBS QID, OTBS ACHS, HUMULIN R SLIDING SCALE. HIS HOME MEDICATIONS OF GLIPIZIDE, TYLENOL #3, NORVASC, VITAMIN C, ASPIRIN, LIPITOR, VITAMIN D3, CATAPRES, PLAVIX, COLACE, FLONASE, GABAPENTIN, LEVOTHYROXINE, LOSARTAN, MAGNESIUM OXIDE, METOPROLOL, TRAZODONE. (2) Acute bronchitis Status: Acute Qualifiers: Bronchitis organism: RSV Qualified Code(s): J20.5 - Acute bronchitis due to respiratory syncytial virus (3) Expressive dysphasia Status: Acute Plan: CONTINUE TO MONITOR (4) Generalized weakness Status: Acute (5) BPH (benign prostatic hyperplasia) Status: Chronic Qualifiers: Lower urinary tract symptom presence: symptoms absent Qualified Code(s): N40.0 - Benign prostatic hyperplasia without lower urinary tract symptoms (6) Coronary artery disease Status: Chronic Qualifiers: Coronary Disease-Associated Artery/Lesion type: [place] artery [place] vs. 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
[2023-02-16] MEDS: DESYREL PO SCH (20:51)
[2023-02-16] MEDS: COLACE CAP 100 MG PO SCH (20:52)
[2023-02-16] MEDS: NEURONTIN CAP 100 MG PO SCH (20:53)
[2023-02-16] MEDS: LIPITOR TAB 40 MG PO SCH (20:53)
[2023-02-16] MEDS: LOPRESSOR TAB 25 MG PO SCH (20:53)
[2023-02-16] MEDS: SNACK - Diabetic Appropriate PO SCH (20:54)
[2023-02-17 05:26] LABS: BASOPHILS % (AUTO) 0.3 % (0.2-1.0); EOSINOPHILS # (AUTO) 0.3 x10^3/uL (0.0-0.2); EOSINOPHILS % (AUTO) 4.7 % (0.9-2.9); HEMATOCRIT 39.8 % (42.0-54.0); HEMOGLOBIN 13.8 g/dL (13.5-18.0); LYMPHOCYTES # (AUTO) 1.7 X10^3/uL (1.3-2.9); MEAN CORPUSCULAR HEMOGLOBIN 31.1 pg (27.0-34.0); MEAN CORPUSCULAR HGB CONC 34.6 g/dL (33.0-35.0); MEAN CORPUSCULAR VOLUME 89.8 fL (80.0-100.0); MEAN PLATELET VOLUME 7.6 fL (7.4-11.0); MONOCYTES # (AUTO) 0.5 x10^3/uL (0.3-0.8); MONOCYTES % (AUTO) 8.7 % (0.0-13.0); NEUTROPHILS # (AUTO) 3.6 x10^3/uL (2.2-4.8); NEUTROPHILS % (AUTO) 58.3 % (42.0-75.0); PLATELET COUNT 331 X10^3/uL (150.0-450.0); RED BLOOD COUNT 4.43 X10^6/uL (4.7-6.0); RED CELL DISTRIBUTION WIDTH 14.4 % (11.6-16.5); WHITE BLOOD COUNT 6.2 X10^3/uL (3.6-10.0)
[2023-02-17 05:34] LABS: ALBUMIN 3.3 g/dL (3.4-5.0); CALCIUM 8.5 mg/dL (8.5-10.1); CARBON DIOXIDE 25.2 mmol/L (21-32); COR CA(FOR HYPOALB) 9.1 mg/dL (8.5-10.1); CREATININE 1.59 mg/dL (0.70-1.30); POTASSIUM 4.1 mmol/L (3.5-5.1); TOTAL PROTEIN 6.9 g/dL (6.4-8.2)
[2023-02-17] MEDS: CIPRO IV 400 MG PREMIX* 400 MG/200 ML IV.SOLN. IV SCH ×2 (08:17→20:26)
[2023-02-17] MEDS: COZAAR PO SCH (08:17)
[2023-02-17] MEDS: VITAMIN D3 25 mcg (1,000 UNITS) PO SCH (08:17)
[2023-02-17] MEDS: GLUCOTROL PO SCH ×2 (08:17→20:26)
[2023-02-17] MEDS: MILK OF MAGNESIA PO SCH (08:17)
[2023-02-17] MEDS: ASPIRIN PO SCH (08:17)
[2023-02-17] MEDS: PLAVIX PO SCH (08:18)
[2023-02-17] MEDS: SYNTHROID 100 mcg TAB PO SCH (08:18)
[2023-02-17] MEDS: VITAMIN C PO SCH (08:18)
[2023-02-17] MEDS: LOPRESSOR TAB 50 MG PO SCH (08:18)
[2023-02-17] MEDS: NORVASC TAB 10 MG PO SCH (08:18)
[2023-02-17] MEDS: CATAPRES TAB 0.2 MG PO SCH ×2 (08:18→20:26)
[2023-02-17] MEDS: PATIENT'S HOME MEDICATION (Alfuzosin 10 mg Tablet Extended Release 24 Hr) PO SCH (08:22)
[2023-02-17] MEDS: LOVENOX INJ 30 MG SYR SC SCH (08:22)
[2023-02-17] MEDS: FLONASE NASAL SPRAY ENOSTRIL SCH (08:22)
[2023-02-17] MEDS: XOPENEX 1.25 MG/3 ML NEBULE NEB SCH ×4 (09:20→20:38)
[2023-02-17] MEDS: NS 1,000 ML IV 1,000 ML IV SCH ×2 (10:21→17:07)
[2023-02-17] MEDS: DESYREL PO SCH (20:25)
[2023-02-17] MEDS: SNACK - Diabetic Appropriate PO SCH (20:26)
[2023-02-17] MEDS: NEURONTIN CAP 100 MG PO SCH (20:26)
[2023-02-17] MEDS: LOPRESSOR TAB 25 MG PO SCH (20:26)
[2023-02-17] MEDS: COLACE CAP 100 MG PO SCH (20:26)
[2023-02-17] MEDS: LIPITOR TAB 40 MG PO SCH (20:32)
--- NOTE | 2023-02-17 22:31 | PCM.PROG ---
Progress Note - Progress Note for Day of Date of Exam: 02/17/23 - Subjective Subjective: IS CURRENTLY OBSERVATION STATUS FOR TREATMENT OF ACUTE KIDNEY INJURY AND ACUTE BRONCHITIS DUE TO RSV. HE HAS A PMH OF TYPE 2 DIABETES, HTN, CAD, [place], TIA, CARDIAC STENTS, HX OF PROSTATE CANCER. TODAY, HE IS ALERT, SITTING UP IN CHAIR ON MORNING ROUNDS. HE CONTINUES TO COMPLAIN OF SHORTNESS OF BREATH AT TIMES, A NONPRODUCTIVE COUGH, AND GENERALIZED WEAKNESS. NURSING STAFF REPORTS THAT HE IS VERY UNSTEADY ON AMBULATION AND REQUIRES USE OF THE WALKER AND ASSISTANCE FROM STAFF. HIS SPOUSE IS WORRIED THAT SHE WILL BE UNABLE TO CARE FOR HIM AT HOME. ON EXAMINATION, HEART IS REGULAR IN RATE AND RHYTHM. BILATERAL LUNGS ARE NOTED WITH DIMINISHED LUNG SOUNDS THROUGHOUT. ABDOMEN IS ROUND, SOFT, AND NON-TENDER WITH NORMAL BOWEL SOUNDS NOTED IN ALL QUADRANTS. WEAKNESS OF LOWER EXTREMITIES NOTED TO WITH NO EDEMA. HIS VITALS THIS MORNING ARE: 98.6-60-20-96%-182/85. LABS WERE OBTAINED. WBC 6.2, RBC 4.43, HGB 13.8, HCT 39.8, PLT COUNT 331, SODIUM 136, POTASSIUM 4.1, CHLORIDE 101, BUN 24, CREATININE 1.59, GLUCOSE 138, CALCIUM 8.5, AST 52, ALT 97, ALK PHOS 78, TOTAL PROTEIN 6.9, ALBUMIN 3.3. BLOOD CULTURES ARE PENDING. HE IS CURRENTLY RECEIVING NORMAL SALINE AT 75 ML/HR, CIPRO 400MG IV Q12H, XOPENEX NEBS QID, OTBS ACHS, HUMULIN R SLIDING SCALE. HIS HOME MEDICATIONS OF TYLENOL #3, NORVASC, VITAMIN C, ASPIRIN, LIPITOR, VITAMIN D3, CATAPRES, PLAVIX, COLACE, FLONASE, GABAPENTIN, LEVOTHYROXINE, LOSARTAN, MAGNESIUM OXIDE, METOPROLOL, TRAZODONE. WE WILL CONTINUE WITH CURRENT PLAN OF CARE TODAY. PATIENT AND HIS SPOUSE REQUEST PLACEMENT AT [facility] [place], [place], THIS FACILITY IS CONTRACTED WITH THE [place]. WE ARE ATTEMPTING PLACEMENT. OTHERWISE, WE WILL FOLLOW-UP WITH AM LABS AND CHEST XRAY AND CONTINUE TO MONITOR. TIME SPENT ON CLINICAL ASSESSMENT, REVIEWING LABS AND IMAGING, DECISION MAKING, AND DOCUMENTATION GREATER THAN 45 MINUTES. - Past Medical Family Social History Past Med/Fam/Surg Hx: No changes since H&P Allergies: Allergies Penicillins Allergy (Verified 08/17/19 11:16) - Review of Systems ROS: No change since H&P - Vital Signs and I&O's Vital Signs: Vital Signs Temperature 97.8 F Temperature 97.8 F Pulse Rate [Apical] 70 Pulse Rate [Apical] 62 Pulse Rate 65 Respiratory Rate 20 Respiratory Rate 20 Blood Pressure [Right Arm] 142/72 Blood Pressure [Right Arm] 154/80 O2 Sat by Pulse Oximetry 98 O2 Sat by Pulse Oximetry 97 O2 Sat by Pulse Oximetry 95 Intake and Output: Intake & Output 02/15/23 02/16/23 02/17/23 02/18/23 11:59 11:59 11:59 11:59 Intake Total 3857 / 3857 2550 / 2550 2899 / 2899 1201 / 1201 Output Total 2960 / 2960 2525 / 2525 2400 / 2400 200 / 200 Balance 897 / 897 499 / 499 1001 / 1001 - Physical Exam Oriented: Normal Eyes: Normal Ear: Normal Nose: Normal Throat: Normal Respiratory: Generalized, Diminished Cardiovascular: Normal : Normal Auscultation: Bowel Sounds: Normal Tenderness: Normal Skin: Normal Musculoskeletal: Normal Psychiatric: Normal Mood Description: Calm Affect: Normal Speech Pattern: Clear, Appropriate - Laboratory and Diagnostics Result Diagrams: 02/17/23 04:25 02/17/23 04:25 Labs: 02/09/23 19:22 Blood Blood Culture - Final 02/09/23 19:35 Blood Blood Culture - Final Laboratory WBC 6.2 X10^3/uL (3.6-10.0) 02/17/23 04:25 RBC 4.43 X10^6/uL (4.7-6.0) L 02/17/23 04:25 Hgb 13.8 g/dL (13.5-18.0) 02/17/23 04:25 Hct 39.8 % (42.0-54.0) L 02/17/23 04:25 MCV 89.8 fL (80.0-100.0) 02/17/23 04:25 MCH 31.1 pg (27.0-34.0) 02/17/23 04:25 MCHC 34.6 g/dL (33.0-35.0) 02/17/23 04:25 RDW 14.4 % (11.6-16.5) 02/17/23 04:25 Plt Count 331 X10^3/uL (150.0-450.0) 02/17/23 04:25 Plt Count Comment Adequate (ADEQUATE) 02/11/23 04:10 MPV 7.6 fL (7.4-11.0) 02/17/23 04:25 Neut % (Auto) 58.3 % (42.0-75.0) 02/17/23 04:25 Lymph % (Auto) 28.0 % (21.0-51.0) 02/17/23 04:25 [place] % (Auto) 8.7 % (0.0-13.0) 02/17/23 04:25 Eos % (Auto) 4.7 % (0.9-2.9) H 02/17/23 04:25 Baso % (Auto) 0.3 % (0.2-1.0) 02/17/23 04:25 Neut # (Auto) 3.6 x10^3/uL (2.2-4.8) 02/17/23 04:25 Lymph # (Auto) 1.7 X10^3/uL (1.3-2.9) 02/17/23 04:25 [place] # (Auto) 0.5 x10^3/uL (0.3-0.8) 02/17/23 04:25 Eos # (Auto) 0.3 x10^3/uL (0.0-0.2) H 02/17/23 04:25 Baso # (Auto) 0.0 X10^3/uL (0.0-0.1) 02/17/23 04:25 Absolute Nucleated RBC 0.1 /100WBC 02/17/23 04:25 Total Counted 100 02/11/23 04:10 Neutrophils % (Manual) 47 % (39-76) 02/11/23 04:10 Band Neutrophils % 4 % (0-10) 02/11/23 04:10 Lymphocytes % (Manual) 31 % (13-43) 02/11/23 04:10 Monocytes % (Manual) 16 % (4-9) H 02/11/23 04:10 Eosinophils % (Manual) 2 % (0-6) 02/11/23 04:10 Plt Morphology Comment Normal (NORMAL) 02/11/23 04:10 RBC Morphology Normal (NORMAL) 02/11/23 04:10 Sodium 136 mmol/L (136-145) 02/17/23 04:25 Corrected Sodium 137 mmol/L (136-145) 02/17/23 04:25 Potassium 4.1 mmol/L (3.5-5.1) 02/17/23 04:25 Chloride 101 mmol/L (98-107) 02/17/23 04:25 Carbon Dioxide 25.2 mmol/L (21-32) 02/17/23 04:25 BUN 24 mg/dL (7-18) H 02/17/23 04:25 Creatinine 1.59 mg/dL (0.70-1.30) H 02/17/23 04:25 Est GFR (MDRD) Af Amer 55 (>60) L 02/17/23 04:25 Est GFR (MDRD) Non-Af 45 (>60) L 02/17/23 04:25 Glucose 138 mg/dL (65-99) H 02/17/23 04:25 POC Glucose (mg/dL) 216 mg/dL (65-99) H 02/17/23 20:24 Lactic Acid 1.4 mmol/L (0.4-2.0) 02/09/23 22:38 Calcium 8.5 mg/dL (8.5-10.1) 02/17/23 04:25 Corrected Calcium 9.1 mg/dL (8.5-10.1) 02/17/23 04:25 Magnesium 2.1 mg/dL (2.0-2.9) 02/11/23 04:10 Total Bilirubin 0.40 mg/dL (0.2-1.0) 02/17/23 04:25 AST 52 Units/L (15-37) H 02/17/23 04:25 ALT 97 Units/L (12-78) H 02/17/23 04:25 Alkaline Phosphatase 78 Units/L (46-116) 02/17/23 04:25 Troponin I High Sens 9.9 ng/L (4.0-60.0) 02/09/23 19:35 B-Natriuretic Peptide 71.9 pg/mL (0-79) 02/09/23 19:35 Total Protein 6.9 g/dL (6.4-8.2) 02/17/23 04:25 Albumin 3.3 g/dL (3.4-5.0) L 02/17/23 04:25 Globulin 3.6 g/dL (2.5-4.5) 02/17/23 04:25 Albumin/Globulin Ratio 0.9 Ratio (1.1-2.1) L 02/17/23 04:25 Lipase 171 Units/L (73-393) 02/09/23 19:35 Specimen Type Clean catch urine 02/10/23 01:05 Urine Color Yellow (YELLOW) 02/10/23 01:05 Urine Appearance Clear (CLEAR) 02/10/23 01:05 Urine pH 5.0 (5.0 - 8.0) 02/10/23 01:05 Ur Specific [place] 1.015 (1.000-1.030) 02/10/23 01:05 Urine Protein 1+ (NEGATIVE) 02/10/23 01:05 Urine Glucose (UA) 4+ (NEGATIVE) 02/10/23 01:05 Urine Ketones Negative (NEGATIVE) 02/10/23 01:05 Urine Blood Negative (NEGATIVE) 02/10/23 01:05 Urine Nitrite Negative (NEGATIVE) 02/10/23 01:05 Urine Bilirubin Negative (NEGATIVE) 02/10/23 01:05 Urine Urobilinogen Normal (NORMAL) 02/10/23 01:05 Ur Leukocyte Esterase Negative (NEGATIVE) 02/10/23 01:05 Urine RBC None seen /HPF (0-3) 02/10/23 01:05 Urine WBC None seen /HPF (0-5) 02/10/23 01:05 Ur Squamous Epith Cells Negative /HPF (NEGATIVE) 02/10/23 01:05 Urine Bacteria Negative /HPF (NEGATIVE) 02/10/23 01:05 Hyaline Casts Rare /LPF (NEGATIVE) 02/10/23 01:05 Ur Culture Indicated? No/not indicated 02/10/23 01:05 SARS-CoV-2 (PCR) Negative (NEGATIVE) 02/09/23 19:48 Influenza Type A (PCR) Negative (NEGATIVE) 02/09/23 19:48 Influenza Type B (PCR) Negative (NEGATIVE) 02/09/23 19:48 RSV (PCR) Positive (NEGATIVE) A 02/09/23 19:48 - Plan (1) RITA (acute kidney injury) Status: Acute Plan: NORMAL SALINE AT 75 ML/HR, CIPRO 400MG IV Q12H, XOPENEX NEBS QID, OTBS ACHS, HUMULIN R SLIDING SCALE. HIS HOME MEDICATIONS OF GLIPIZIDE, TYLENOL #3, NORVASC, VITAMIN C, ASPIRIN, LIPITOR, VITAMIN D3, CATAPRES, PLAVIX, COLACE, FLONASE, GABAPENTIN, LEVOTHYROXINE, LOSARTAN, MAGNESIUM OXIDE, METOPROLOL, TRAZODONE. (2) Acute bronchitis Status: Acute Qualifiers: Bronchitis organism: RSV Qualified Code(s): J20.5 - Acute bronchitis due to respiratory syncytial virus (3) Expressive dysphasia Status: Acute Plan: CONTINUE TO MONITOR (4) Generalized weakness Status: Acute (5) BPH (benign prostatic hyperplasia) Status: Chronic Qualifiers: Lower urinary tract symptom presence: symptoms absent Qualified Code(s): N40.0 - Benign prostatic hyperplasia without lower urinary tract symptoms (6) Coronary artery disease Status: Chronic Qualifiers: Coronary Disease-Associated Artery/Lesion type: [place] artery [place] vs. 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
[2023-02-18 04:59] LABS: BASOPHILS % (AUTO) 0.4 % (0.2-1.0); EOSINOPHILS # (AUTO) 0.3 x10^3/uL (0.0-0.2); EOSINOPHILS % (AUTO) 6.3 % (0.9-2.9); HEMATOCRIT 37.1 % (42.0-54.0); HEMOGLOBIN 12.9 g/dL (13.5-18.0); LYMPHOCYTES # (AUTO) 1.6 X10^3/uL (1.3-2.9); MEAN CORPUSCULAR HEMOGLOBIN 31.3 pg (27.0-34.0); MEAN CORPUSCULAR HGB CONC 34.9 g/dL (33.0-35.0); MEAN CORPUSCULAR VOLUME 89.8 fL (80.0-100.0); MEAN PLATELET VOLUME 7.1 fL (7.4-11.0); MONOCYTES # (AUTO) 0.6 x10^3/uL (0.3-0.8); MONOCYTES % (AUTO) 12.1 % (0.0-13.0); NEUTROPHILS # (AUTO) 2.7 x10^3/uL (2.2-4.8); NEUTROPHILS % (AUTO) 51.2 % (42.0-75.0); PLATELET COUNT 325 X10^3/uL (150.0-450.0); RED BLOOD COUNT 4.13 X10^6/uL (4.7-6.0); RED CELL DISTRIBUTION WIDTH 14.4 % (11.6-16.5); WHITE BLOOD COUNT 5.2 X10^3/uL (3.6-10.0)
[2023-02-18 05:20] LABS: ALBUMIN 2.9 g/dL (3.4-5.0); CALCIUM 8.1 mg/dL (8.5-10.1); CARBON DIOXIDE 25.9 mmol/L (21-32); CREATININE 1.57 mg/dL (0.70-1.30); POTASSIUM 4.3 mmol/L (3.5-5.1)
[2023-02-18] MEDS: NS 1,000 ML IV 1,000 ML IV SCH ×2 (06:29→20:06)
[2023-02-18] MEDS: XOPENEX 1.25 MG/3 ML NEBULE NEB SCH ×4 (09:30→20:26)
[2023-02-18] MEDS: PATIENT'S HOME MEDICATION (Alfuzosin 10 mg Tablet Extended Release 24 Hr) PO SCH (09:46)
[2023-02-18] MEDS: CIPRO IV 400 MG PREMIX* 400 MG/200 ML IV.SOLN. IV SCH ×2 (09:46→20:28)
[2023-02-18] MEDS: LOVENOX INJ 30 MG SYR SC SCH (09:46)
[2023-02-18] MEDS: CATAPRES TAB 0.2 MG PO SCH ×2 (09:47→20:28)
[2023-02-18] MEDS: MILK OF MAGNESIA PO SCH (09:47)
[2023-02-18] MEDS: VITAMIN D3 25 mcg (1,000 UNITS) PO SCH (09:47)
[2023-02-18] MEDS: ASPIRIN PO SCH (09:47)
[2023-02-18] MEDS: COZAAR PO SCH (09:47)
[2023-02-18] MEDS: NORVASC TAB 10 MG PO SCH (09:48)
[2023-02-18] MEDS: PLAVIX PO SCH (09:48)
[2023-02-18] MEDS: SYNTHROID 100 mcg TAB PO SCH (09:48)
[2023-02-18] MEDS: LOPRESSOR TAB 50 MG PO SCH (09:48)
[2023-02-18] MEDS: VITAMIN C PO SCH (09:48)
[2023-02-18] MEDS: GLUCOTROL PO SCH ×2 (09:49→20:27)
[2023-02-18] MEDS: FLONASE NASAL SPRAY ENOSTRIL SCH (10:30)
--- NOTE | 2023-02-18 20:22 | PCM.PROG ---
Progress Note - Progress Note for Day of Date of Exam: 02/18/23 - Subjective Subjective: IS CURRENTLY OBSERVATION STATUS FOR TREATMENT OF ACUTE KIDNEY INJURY AND ACUTE BRONCHITIS DUE TO RSV. HE HAS A PMH OF TYPE 2 DIABETES, HTN, CAD, [place], TIA, CARDIAC STENTS, HX OF PROSTATE CANCER. TODAY, HE IS ALERT, SITTING UP IN CHAIR ON MORNING ROUNDS. HE CONTINUES TO COMPLAIN OF A N ONPRODUCTIVE COUGH AND GENERALIZED WEAKNESS. HE DENIES SHORTNESS OF BREATH THIS MORNING. NURSING STAFF REPORTS THAT HE IS VERY UNSTEADY ON AMBULATION AND REQUIRES USE OF THE WALKER AND ASSISTANCE FROM STAFF. HIS SPOUSE IS WORRIED THAT SHE WILL BE UNABLE TO CARE FOR HIM AT HOME. ON EXAMINATION, HEART IS REGULAR IN RATE AND RHYTHM. BILATERAL LUNGS ARE NOTED WITH DIMINISHED LUNG SOUNDS THROUGHOUT. ABDOMEN IS ROUND, SOFT, AND NON-TENDER WITH NORMAL BOWEL SOUNDS NOTED IN ALL QUADRANTS. WEAKNESS OF LOWER EXTREMITIES NOTED TO WITH NO EDEMA. HIS VITALS THIS MORNING ARE: 98.9-66-20-98%-173/79. LABS WERE OBTAINED. WBC 5.2, RBC 4.13, HGB 12.9, HCT 37.1, PLT COUNT 325, SODIUM 136, POTASSIUM 4.3, BUN 22, CREATININE 1.57, GLUCOSE 145, CALCIUM 8.1, AST 36, ALT 77, ALK PHOS 67, TOTAL PROTEIN 6.0, ALBUMIN 2.9. BLOOD CULTURES ARE PENDING. HE IS CURRENTLY RECEIVING NORMAL SALINE AT 75 ML/HR, CIPRO 400MG IV Q12H, XOPENEX NEBS QID, OTBS ACHS, HUMULIN R SLIDING SCALE. HIS HOME MEDICATIONS OF TYLENOL #3, NORVASC, VITAMIN C, ASPIRIN, LIPITOR, VITAMIN D3, CATAPRES, PLAVIX, COLACE, FLONASE, GABAPENTIN, LEVOTHYROXINE, LOSARTAN, MAGNESIUM OXIDE, METOPROLOL, TRAZODONE. WE WILL CONTINUE WITH CURRENT PLAN OF CARE TODAY. PATIENT AND HIS SPOUSE REQUEST PLACEMENT AT [facility] IN [place], [place], THIS FACILITY IS CONTRACTED WITH THE ME. HE HAS BEEN ACCEPTED, HOWEVER, A PRECERT FROM HIS INSURANCE IS PENDING. WE WILL CONTINUE WITH PHYSICAL THERAPY AND CURRENT PLAN OF CARE TODAY. OTHERWISE, WE WILL FOLLOW-UP WITH AM LABS AND CHEST XRAY AND CONTINUE TO MONITOR. TIME SPENT ON CLINICAL ASSESSMENT, REVIEWING LABS AND IMAGING, DECISION MAKING, AND DOCUMENTATION GREATER THAN 45 MINUTES. - Past Medical Family Social History Past Med/Fam/Surg Hx: No changes since H&P Allergies: Allergies Penicillins Allergy (Verified 08/17/19 11:16) - Review of Systems ROS: No change since H&P - Vital Signs and I&O's Vital Signs: Vital Signs Temperature 98.9 F Pulse Rate [Apical] 65 Pulse Rate 63 Pulse Rate 64 Respiratory Rate 20 Blood Pressure [Right Arm] 133/63 O2 Sat by Pulse Oximetry 99 O2 Sat by Pulse Oximetry 92 O2 Sat by Pulse Oximetry 98 Intake and Output: Intake & Output 02/16/23 02/17/23 02/18/23 02/19/23 11:59 11:59 11:59 11:59 Intake Total 2550 / 2550 2899 / 2899 2626 / 2626 1524 / 1524 Output Total 2525 / 2525 2400 / 2400 2100 / 2100 400 / 400 Balance 499 / 499 526 / 526 1124 / 1124 - Physical Exam Oriented: Normal Eyes: Normal Ear: Normal Nose: Normal Throat: Normal Respiratory: Generalized, Diminished Cardiovascular: Normal : Normal Auscultation: Bowel Sounds: Normal Palpation: Normal Tenderness: Normal Skin: Normal Musculoskeletal: Normal Psychiatric: Normal Mood Description: Calm Affect: Normal Speech Pattern: Clear, Appropriate - Laboratory and Diagnostics Result Diagrams: 02/18/23 04:46 02/18/23 04:46 Labs: 02/09/23 19:22 Blood Blood Culture - Final 02/09/23 19:35 Blood Blood Culture - Final Laboratory WBC 5.2 X10^3/uL (3.6-10.0) 02/18/23 04:46 RBC 4.13 X10^6/uL (4.7-6.0) L 02/18/23 04:46 Hgb 12.9 g/dL (13.5-18.0) L 02/18/23 04:46 Hct 37.1 % (42.0-54.0) L 02/18/23 04:46 MCV 89.8 fL (80.0-100.0) 02/18/23 04:46 MCH 31.3 pg (27.0-34.0) 02/18/23 04:46 MCHC 34.9 g/dL (33.0-35.0) 02/18/23 04:46 RDW 14.4 % (11.6-16.5) 02/18/23 04:46 Plt Count 325 X10^3/uL (150.0-450.0) 02/18/23 04:46 Plt Count Comment Adequate (ADEQUATE) 02/11/23 04:10 MPV 7.1 fL (7.4-11.0) L 02/18/23 04:46 Neut % (Auto) 51.2 % (42.0-75.0) 02/18/23 04:46 Lymph % (Auto) 30.0 % (21.0-51.0) 02/18/23 04:46 [place] % (Auto) 12.1 % (0.0-13.0) 02/18/23 04:46 Eos % (Auto) 6.3 % (0.9-2.9) H 02/18/23 04:46 Baso % (Auto) 0.4 % (0.2-1.0) 02/18/23 04:46 Neut # (Auto) 2.7 x10^3/uL (2.2-4.8) 02/18/23 04:46 Lymph # (Auto) 1.6 X10^3/uL (1.3-2.9) 02/18/23 04:46 [place] # (Auto) 0.6 x10^3/uL (0.3-0.8) 02/18/23 04:46 Eos # (Auto) 0.3 x10^3/uL (0.0-0.2) H 02/18/23 04:46 Baso # (Auto) 0.0 X10^3/uL (0.0-0.1) 02/18/23 04:46 Absolute Nucleated RBC 0.1 /100WBC 02/18/23 04:46 Total Counted 100 02/11/23 04:10 Neutrophils % (Manual) 47 % (39-76) 02/11/23 04:10 Band Neutrophils % 4 % (0-10) 02/11/23 04:10 Lymphocytes % (Manual) 31 % (13-43) 02/11/23 04:10 Monocytes % (Manual) 16 % (4-9) H 02/11/23 04:10 Eosinophils % (Manual) 2 % (0-6) 02/11/23 04:10 Plt Morphology Comment Normal (NORMAL) 02/11/23 04:10 RBC Morphology Normal (NORMAL) 02/11/23 04:10 Sodium 136 mmol/L (136-145) 02/18/23 04:46 Corrected Sodium 137 mmol/L (136-145) 02/18/23 04:46 Potassium 4.3 mmol/L (3.5-5.1) 02/18/23 04:46 Chloride 104 mmol/L (98-107) 02/18/23 04:46 Carbon Dioxide 25.9 mmol/L (21-32) 02/18/23 04:46 BUN 22 mg/dL (7-18) H 02/18/23 04:46 Creatinine 1.57 mg/dL (0.70-1.30) H 02/18/23 04:46 Est GFR (MDRD) Af Amer 56 (>60) L 02/18/23 04:46 Est GFR (MDRD) Non-Af 46 (>60) L 02/18/23 04:46 Glucose 145 mg/dL (65-99) H 02/18/23 04:46 POC Glucose (mg/dL) 127 mg/dL (65-99) H 02/18/23 20:05 Lactic Acid 1.4 mmol/L (0.4-2.0) 02/09/23 22:38 Calcium 8.1 mg/dL (8.5-10.1) L 02/18/23 04:46 Corrected Calcium 9.0 mg/dL (8.5-10.1) 02/18/23 04:46 Magnesium 2.1 mg/dL (2.0-2.9) 02/11/23 04:10 Total Bilirubin 0.40 mg/dL (0.2-1.0) 02/18/23 04:46 AST 36 Units/L (15-37) 02/18/23 04:46 ALT 77 Units/L (12-78) 02/18/23 04:46 Alkaline Phosphatase 67 Units/L (46-116) 02/18/23 04:46 Troponin I High Sens 9.9 ng/L (4.0-60.0) 02/09/23 19:35 B-Natriuretic Peptide 71.9 pg/mL (0-79) 02/09/23 19:35 Total Protein 6.0 g/dL (6.4-8.2) L 02/18/23 04:46 Albumin 2.9 g/dL (3.4-5.0) L 02/18/23 04:46 Globulin 3.1 g/dL (2.5-4.5) 02/18/23 04:46 Albumin/Globulin Ratio 0.9 Ratio (1.1-2.1) L 02/18/23 04:46 Lipase 171 Units/L (73-393) 02/09/23 19:35 Specimen Type Clean catch urine 02/10/23 01:05 Urine Color Yellow (YELLOW) 02/10/23 01:05 Urine Appearance Clear (CLEAR) 02/10/23 01:05 Urine pH 5.0 (5.0 - 8.0) 02/10/23 01:05 Ur Specific [place] 1.015 (1.000-1.030) 02/10/23 01:05 Urine Protein 1+ (NEGATIVE) 02/10/23 01:05 Urine Glucose (UA) 4+ (NEGATIVE) 02/10/23 01:05 Urine Ketones Negative (NEGATIVE) 02/10/23 01:05 Urine Blood Negative (NEGATIVE) 02/10/23 01:05 Urine Nitrite Negative (NEGATIVE) 02/10/23 01:05 Urine Bilirubin Negative (NEGATIVE) 02/10/23 01:05 Urine Urobilinogen Normal (NORMAL) 02/10/23 01:05 Ur Leukocyte Esterase Negative (NEGATIVE) 02/10/23 01:05 Urine RBC None seen /HPF (0-3) 02/10/23 01:05 Urine WBC None seen /HPF (0-5) 02/10/23 01:05 Ur Squamous Epith Cells Negative /HPF (NEGATIVE) 02/10/23 01:05 Urine Bacteria Negative /HPF (NEGATIVE) 02/10/23 01:05 Hyaline Casts Rare /LPF (NEGATIVE) 02/10/23 01:05 Ur Culture Indicated? No/not indicated 02/10/23 01:05 SARS-CoV-2 (PCR) Negative (NEGATIVE) 02/09/23 19:48 Influenza Type A (PCR) Negative (NEGATIVE) 02/09/23 19:48 Influenza Type B (PCR) Negative (NEGATIVE) 02/09/23 19:48 RSV (PCR) Positive (NEGATIVE) A 02/09/23 19:48 - Plan (1) RITA (acute kidney injury) Status: Acute Plan: NORMAL SALINE AT 75 ML/HR, CIPRO 400MG IV Q12H, XOPENEX NEBS QID, OTBS ACHS, HUMULIN R SLIDING SCALE. HIS HOME MEDICATIONS OF GLIPIZIDE, TYLENOL #3, NORVASC, VITAMIN C, ASPIRIN, LIPITOR, VITAMIN D3, CATAPRES, PLAVIX, COLACE, FLONASE, GABAPENTIN, LEVOTHYROXINE, LOSARTAN, MAGNESIUM OXIDE, METOPROLOL, TRAZODONE. (2) Acute bronchitis Status: Acute Qualifiers: Bronchitis organism: RSV Qualified Code(s): J20.5 - Acute bronchitis due to respiratory syncytial virus (3) Expressive dysphasia Status: Acute Plan: CONTINUE TO MONITOR (4) Generalized weakness Status: Acute (5) BPH (benign prostatic hyperplasia) Status: Chronic Qualifiers: Lower urinary tract symptom presence: symptoms absent Qualified Code(s): N40.0 - Benign prostatic hyperplasia without lower urinary tract symptoms (6) Coronary artery disease Status: Chronic Qualifiers: Coronary Disease-Associated Artery/Lesion type: [place] artery [place] vs. transplanted heart: [place] heart Associated angina: without angina Qualified Code(s): I25.10 - Atherosclerotic heart disease of [place] coronary artery without angina pectoris (7) Diabetes mellitus, type 2 Status: Chronic Qualifiers: Diabetes mellitus nursing home insulin use: with laborer marine terminal use Diabetes mellitus complication status: with hyperglycemia Qualified Code(s): E11.65 - Type 2 diabetes mellitus with hyperglycemia; Z79.4 - alf (current) use of insulin Plan: CONTINUE GLIPIZIDE (8) Hypertension Status: Chronic Qualifiers: Hypertension type: primary hypertension Qualified Code(s): I10 - Essential (primary) hypertension
[2023-02-18] MEDS: DESYREL PO SCH (20:27)
[2023-02-18] MEDS: LOPRESSOR TAB 25 MG PO SCH (20:27)
[2023-02-18] MEDS: LIPITOR TAB 40 MG PO SCH (20:27)
[2023-02-18] MEDS: NEURONTIN CAP 100 MG PO SCH (20:27)
[2023-02-18] MEDS: COLACE CAP 100 MG PO SCH (20:28)
[2023-02-18] MEDS: SNACK - Diabetic Appropriate PO SCH (21:22)
[2023-02-19] MEDS: NS 1,000 ML IV 1,000 ML IV SCH ×4 (04:26→17:41)
[2023-02-19 06:29] LABS: BASOPHILS % (AUTO) 0.5 % (0.2-1.0); EOSINOPHILS # (AUTO) 0.3 x10^3/uL (0.0-0.2); HEMATOCRIT 38.3 % (42.0-54.0); HEMOGLOBIN 13.2 g/dL (13.5-18.0); LYMPHOCYTES # (AUTO) 1.6 X10^3/uL (1.3-2.9); LYMPHOCYTES % (AUTO) 31.9 % (21.0-51.0); MEAN CORPUSCULAR HEMOGLOBIN 31.2 pg (27.0-34.0); MEAN CORPUSCULAR HGB CONC 34.4 g/dL (33.0-35.0); MEAN CORPUSCULAR VOLUME 90.8 fL (80.0-100.0); MEAN PLATELET VOLUME 7.1 fL (7.4-11.0); MONOCYTES # (AUTO) 0.6 x10^3/uL (0.3-0.8); MONOCYTES % (AUTO) 12.5 % (0.0-13.0); NEUTROPHILS # (AUTO) 2.5 x10^3/uL (2.2-4.8); NEUTROPHILS % (AUTO) 50.1 % (42.0-75.0); PLATELET COUNT 305 X10^3/uL (150.0-450.0); RED BLOOD COUNT 4.22 X10^6/uL (4.7-6.0); RED CELL DISTRIBUTION WIDTH 14.5 % (11.6-16.5)
[2023-02-19 06:38] LABS: ALANINE AMINOTRANSFERASE 69 Units/L (12-78); ALBUMIN 2.9 g/dL (3.4-5.0); ALKALINE PHOSPHATASE 64 Units/L (46-116); ASPARTATE AMINO TRANSFERASE 32 Units/L (15-37); BLOOD UREA NITROGEN 16 mg/dL (7-18); CARBON DIOXIDE 26.3 mmol/L (21-32); CHLORIDE 104 mmol/L (98-107); COR CA(FOR HYPOALB) 8.9 mg/dL (8.5-10.1); COR NA(FOR HYPERGLY) 137 mmol/L (136-145); CREATININE 1.31 mg/dL (0.70-1.30); GLUCOSE 139 mg/dL (65-99); POTASSIUM 4.5 mmol/L (3.5-5.1); SODIUM 136 mmol/L (136-145); TOTAL PROTEIN 5.9 g/dL (6.4-8.2); eGFR NON BLACK RACES 57 (>60)
[2023-02-19] MEDS: XOPENEX 1.25 MG/3 ML NEBULE NEB SCH ×4 (08:35→20:31)
[2023-02-19] MEDS: LOVENOX INJ 30 MG SYR SC SCH (08:39)
[2023-02-19] MEDS: COZAAR PO SCH (08:39)
[2023-02-19] MEDS: ASPIRIN PO SCH (08:39)
[2023-02-19] MEDS: VITAMIN C PO SCH (08:39)
[2023-02-19] MEDS: PLAVIX PO SCH (08:39)
[2023-02-19] MEDS: CIPRO IV 400 MG PREMIX* 400 MG/200 ML IV.SOLN. IV SCH ×2 (08:40→21:07)
[2023-02-19] MEDS: NORVASC TAB 10 MG PO SCH (08:40)
[2023-02-19] MEDS: MILK OF MAGNESIA PO SCH (08:40)
[2023-02-19] MEDS: LOPRESSOR TAB 50 MG PO SCH (08:40)
[2023-02-19] MEDS: VITAMIN D3 25 mcg (1,000 UNITS) PO SCH (08:40)
[2023-02-19] MEDS: GLUCOTROL PO SCH ×2 (08:40→21:06)
[2023-02-19] MEDS: SYNTHROID 100 mcg TAB PO SCH (08:40)
[2023-02-19] MEDS: PATIENT'S HOME MEDICATION (Alfuzosin 10 mg Tablet Extended Release 24 Hr) PO SCH (08:40)
[2023-02-19] MEDS: CATAPRES TAB 0.2 MG PO SCH ×2 (08:40→21:07)
[2023-02-19] MEDS: FLONASE NASAL SPRAY ENOSTRIL SCH (08:41)
[2023-02-19] MEDS: SNACK - Diabetic Appropriate PO SCH (21:00)
[2023-02-19] MEDS: DESYREL PO SCH (21:05)
[2023-02-19] MEDS: LOPRESSOR TAB 25 MG PO SCH (21:06)
[2023-02-19] MEDS: NEURONTIN CAP 100 MG PO SCH (21:06)
[2023-02-19] MEDS: COLACE CAP 100 MG PO SCH (21:06)
[2023-02-19] MEDS: LIPITOR TAB 40 MG PO SCH (21:07)
[2023-02-20 06:10] LABS: BASOPHILS % (AUTO) 0.3 % (0.2-1.0); EOSINOPHILS # (AUTO) 0.2 x10^3/uL (0.0-0.2); HEMATOCRIT 34.9 % (42.0-54.0); LYMPHOCYTES # (AUTO) 1.5 X10^3/uL (1.3-2.9); LYMPHOCYTES % (AUTO) 30.9 % (21.0-51.0); MEAN CORPUSCULAR HEMOGLOBIN 31.3 pg (27.0-34.0); MEAN CORPUSCULAR HGB CONC 34.5 g/dL (33.0-35.0); MEAN CORPUSCULAR VOLUME 90.7 fL (80.0-100.0); MEAN PLATELET VOLUME 7.2 fL (7.4-11.0); MONOCYTES # (AUTO) 0.6 x10^3/uL (0.3-0.8); MONOCYTES % (AUTO) 13.4 % (0.0-13.0); NEUTROPHILS # (AUTO) 2.4 x10^3/uL (2.2-4.8); NEUTROPHILS % (AUTO) 51.4 % (42.0-75.0); PLATELET COUNT 274 X10^3/uL (150.0-450.0); RED BLOOD COUNT 3.85 X10^6/uL (4.7-6.0); RED CELL DISTRIBUTION WIDTH 14.3 % (11.6-16.5); WHITE BLOOD COUNT 4.7 X10^3/uL (3.6-10.0)
--- NOTE | 2023-02-20 06:23 | RAD ---
HISTORYRSV HX: CVA, TIA, CAD, [place], HTN, DMSTUDYCHEST, 1 VIEWCOMPARISONChest one view from 02/15/2023.FINDINGSSupport devices: None.Heart/mediastinum: Stable.Lungs: Previously seen bibasilar/perihilar opacities have improved. Peribronchial thickening persists bilaterally. No new suspicious area of consolidation. No significant pleural effusion. No pneumothorax.Additional findings: None.IMPRESSIONImproved aeration of the lungs with residual opacities compatible with the provided history of RSV.Electronically signed by: Grupo Rocha (Feb 20, 2023 06:21:31)
[2023-02-20 06:30] LABS: ALBUMIN 2.6 g/dL (3.4-5.0); CALCIUM 7.5 mg/dL (8.5-10.1); COR CA(FOR HYPOALB) 8.6 mg/dL (8.5-10.1); CREATININE 1.61 mg/dL (0.70-1.30); POTASSIUM 4.3 mmol/L (3.5-5.1); TOTAL PROTEIN 5.4 g/dL (6.4-8.2)
[2023-02-20] MEDS: XOPENEX 1.25 MG/3 ML NEBULE NEB SCH ×4 (08:15→20:40)
[2023-02-20] MEDS: ASPIRIN PO SCH (09:45)
[2023-02-20] MEDS: MILK OF MAGNESIA PO SCH (09:45)
[2023-02-20] MEDS: VITAMIN D3 25 mcg (1,000 UNITS) PO SCH (09:45)
[2023-02-20] MEDS: CIPRO IV 400 MG PREMIX* 400 MG/200 ML IV.SOLN. IV SCH ×2 (09:45→20:25)
[2023-02-20] MEDS: CATAPRES TAB 0.2 MG PO SCH ×2 (09:45→20:26)
[2023-02-20] MEDS: SYNTHROID 100 mcg TAB PO SCH (09:45)
[2023-02-20] MEDS: VITAMIN C PO SCH (09:45)
[2023-02-20] MEDS: NORVASC TAB 10 MG PO SCH (09:45)
[2023-02-20] MEDS: COZAAR PO SCH (09:45)
[2023-02-20] MEDS: PLAVIX PO SCH (09:45)
[2023-02-20] MEDS: LOPRESSOR TAB 50 MG PO SCH (09:45)
[2023-02-20] MEDS: GLUCOTROL PO SCH ×2 (09:46→20:25)
[2023-02-20] MEDS: PATIENT'S HOME MEDICATION (Alfuzosin 10 mg Tablet Extended Release 24 Hr) PO SCH (09:46)
[2023-02-20] MEDS: FLONASE NASAL SPRAY ENOSTRIL SCH (09:46)
[2023-02-20] MEDS: NS 1,000 ML IV 1,000 ML IV SCH ×2 (09:52→22:00)
[2023-02-20] MEDS: LOVENOX INJ 30 MG SYR SC SCH (10:02)
--- NOTE | 2023-02-20 19:46 | PCM.PROG ---
Progress Note Progress Note for Day of Date of Exam: 02/19/23 Subjective Subjective: IS CURRENTLY OBSERVATION STATUS FOR TREATMENT OF ACUTE KIDNEY INJURY AND ACUTE BRONCHITIS DUE TO RSV. HE HAS A PMH OF TYPE 2 DIABETES, HTN, CAD, [place], TIA, CARDIAC STENTS, HX OF PROSTATE CANCER. TODAY, HE IS ALERT, SITTING UP IN CHAIR ON MORNING ROUNDS. HE CONTINUES TO COMPLAIN OF A NONPRODUCTIVE COUGH AND GENERALIZED WEAKNESS. HE DENIES SHORTNESS OF BREATH THIS MORNING. NURSING STAFF REPORTS THAT HE IS VERY UNSTEADY ON AMBULATION AND REQUIRES USE OF THE WALKER AND ASSISTANCE FROM STAFF. HIS SPOUSE IS WORRIED THAT SHE WILL BE UNABLE TO CARE FOR HIM AT HOME. ON EXAMINATION, HEART IS REGULAR IN RATE AND RHYTHM. BILATERAL LUNGS ARE NOTED WITH DIMINISHED LUNG SOUNDS THROUGHOUT. ABDOMEN IS ROUND, SOFT, AND NON-TENDER WITH NORMAL BOWEL SOUNDS NOTED IN ALL QUADRANTS. WEAKNESS OF LOWER EXTREMITIES NOTED TO WITH NO EDEMA. HIS VITALS THIS MORNING ARE: 98.9-66-20-98%-173/79. LABS WERE OBTAINED. WBC 5.2, RBC 4.13, HGB 12.9, HCT 37.1, PLT COUNT 325, SODIUM 136, POTASSIUM 4.3, BUN 22, CREATININE 1.57, GLUCOSE 145, CALCIUM 8.1, AST 36, ALT 77, ALK PHOS 67, TOTAL PROTEIN 6.0, ALBUMIN 2.9. BLOOD CULTURES ARE PENDING. HE IS CURRENTLY RECEIVING NORMAL SALINE AT 75 ML/HR, CIPRO 400MG IV Q12H, XOPENEX NEBS QID, OTBS ACHS, HUMULIN R SLIDING SCALE. HIS HOME MEDICATIONS OF TYLENOL #3, NORVASC, VITAMIN C, ASPIRIN, LIPITOR, VITAMIN D3, CATAPRES, PLAVIX, COLACE, FLONASE, GABAPENTIN, LEVOTHYROXINE, LOSARTAN, MAGNESIUM OXIDE, METOPROLOL, TRAZODONE. WE WILL CONTINUE WITH CURRENT PLAN OF CARE TODAY. PATIENT AND HIS SPOUSE REQUEST PLACEMENT AT [facility] IN [place], [place], THIS [facility]AC[facility]. HE HAS BEEN ACCEPTED, HOWEVER, A PRECERT FROM HIS INSURANCE IS PENDING. WE WILL CONTINUE WITH PHYSICAL THERAPY AND CURRENT PLAN OF CARE TODAY. OTHERWISE, WE WILL FOLLOW-UP WITH AM LABS AND CHEST XRAY AND CONTINUE TO MONITOR. TIME SPENT ON CLINICAL ASSESSMENT, REVIEWING LABS AND IMAGING, DECISION MAKING, AND DOCUMENTATION GREATER THAN 45 MINUTES. Tuesday, 19 February 2023 Patient is lying comfortably in bed this morning. He had no acute problems since last night. His kidney function is much improved since admission and with his respiratory condition from RSV also is improving. We are currently still awaiting temporary shelter placement for rehabilitation as his says she is not able to take care of him at home at this time until he gets better and can do more for his self. Repeat routine labs and chest x-ray tomorrow morning. Past Medical Family Social History Past Med/Fam/Surg Hx: No changes since H&P Allergies: Allergies Penicillins Allergy (Verified 08/17/19 11:16) Review of Systems ROS: No change since H&P Vital Signs and I&O's Vital Signs: Vital Signs Temperature 97.4 F Temperature 97.3 F Pulse Rate [Apical] 60 Pulse Rate [Apical] 60 Respiratory Rate 20 Respiratory Rate 18 Blood Pressure [Right Arm] 118/64 Blood Pressure [Right Arm] 96/59 O2 Sat by Pulse Oximetry 97 O2 Sat by Pulse Oximetry 97 Intake and Output: Intake & Output 02/17/23 02/18/23 02/19/23 02/20/23 11:59 11:59 11:59 11:59 Intake Total 2899 / 2899 2626 / 2626 3974 / 3974 680 / 680 Output Total 2400 / 2400 2100 / 2100 900 / 900 Balance 499 / 499 526 / 526 3074 / 3074 680 / 680 Physical Exam Oriented: Normal Eyes: Normal Ear: Normal Nose: Normal Throat: Normal Respiratory: Generalized and Diminished Cardiovascular: Normal : Normal Auscultation: Bowel Sounds: Normal Tenderness: Normal Skin: Normal Musculoskeletal: Normal Psychiatric: Normal Mood Description: Calm Affect: Normal Speech Pattern: Clear and Appropriate Laboratory and Diagnostics Result Diagrams: 02/20/23 05:26 02/20/23 05:26 Labs: 02/09/23 19:22 Blood Blood Culture - Final 02/09/23 19:35 Blood Blood Culture - Final Laboratory WBC 5.0 X10^3/uL (3.6-10.0) 02/19/23 06:05 RBC 4.22 X10^6/uL (4.7-6.0) L 02/19/23 06:05 Hgb 13.2 g/dL (13.5-18.0) L 02/19/23 06:05 Hct 38.3 % (42.0-54.0) L 02/19/23 06:05 MCV 90.8 fL (80.0-100.0) 02/19/23 06:05 MCH 31.2 pg (27.0-34.0) 02/19/23 06:05 MCHC 34.4 g/dL (33.0-35.0) 02/19/23 06:05 RDW 14.5 % (11.6-16.5) 02/19/23 06:05 Plt Count 305 X10^3/uL (150.0-450.0) 02/19/23 06:05 Plt Count Comment Adequate (ADEQUATE) 02/11/23 04:10 MPV 7.1 fL (7.4-11.0) L 02/19/23 06:05 Neut % (Auto) 50.1 % (42.0-75.0) 02/19/23 06:05 Lymph % (Auto) 31.9 % (21.0-51.0) 02/19/23 06:05 [place] % (Auto) 12.5 % (0.0-13.0) 02/19/23 06:05 Eos % (Auto) 5.0 % (0.9-2.9) H 02/19/23 06:05 Baso % (Auto) 0.5 % (0.2-1.0) 02/19/23 06:05 Neut # (Auto) 2.5 x10^3/uL (2.2-4.8) 02/19/23 06:05 Lymph # (Auto) 1.6 X10^3/uL (1.3-2.9) 02/19/23 06:05 [place] # (Auto) 0.6 x10^3/uL (0.3-0.8) 02/19/23 06:05 Eos # (Auto) 0.3 x10^3/uL (0.0-0.2) H 02/19/23 06:05 Baso # (Auto) 0.0 X10^3/uL (0.0-0.1) 02/19/23 06:05 Absolute Nucleated RBC 0.1 /100WBC 02/19/23 06:05 Total Counted 100 02/11/23 04:10 Neutrophils % (Manual) 47 % (39-76) 02/11/23 04:10 Band Neutrophils % 4 % (0-10) 02/11/23 04:10 Lymphocytes % (Manual) 31 % (13-43) 02/11/23 04:10 Monocytes % (Manual) 16 % (4-9) H 02/11/23 04:10 Eosinophils % (Manual) 2 % (0-6) 02/11/23 04:10 Plt Morphology Comment Normal (NORMAL) 02/11/23 04:10 RBC Morphology Normal (NORMAL) 02/11/23 04:10 Sodium 136 mmol/L (136-145) 02/19/23 06:05 Corrected Sodium 137 mmol/L (136-145) 02/19/23 06:05 Potassium 4.5 mmol/L (3.5-5.1) 02/19/23 06:05 Chloride 104 mmol/L (98-107) 02/19/23 06:05 Carbon Dioxide 26.3 mmol/L (21-32) 02/19/23 06:05 BUN 16 mg/dL (7-18) 02/19/23 06:05 Creatinine 1.31 mg/dL (0.70-1.30) H 02/19/23 06:05 Est GFR (MDRD) Af Amer > 60 (>60) 02/19/23 06:05 Est GFR (MDRD) Non-Af 57 (>60) L 02/19/23 06:05 Glucose 139 mg/dL (65-99) H 02/19/23 06:05 POC Glucose (mg/dL) 132 mg/dL (65-99) H 02/19/23 16:07 Lactic Acid 1.4 mmol/L (0.4-2.0) 02/09/23 22:38 Calcium 8.0 mg/dL (8.5-10.1) L 02/19/23 06:05 Corrected Calcium 8.9 mg/dL (8.5-10.1) 02/19/23 06:05 Magnesium 2.1 mg/dL (2.0-2.9) 02/11/23 04:10 Total Bilirubin 0.50 mg/dL (0.2-1.0) 02/19/23 06:05 AST 32 Units/L (15-37) 02/19/23 06:05 ALT 69 Units/L (12-78) 02/19/23 06:05 Alkaline Phosphatase 64 Units/L (46-116) 02/19/23 06:05 Troponin I High Sens 9.9 ng/L (4.0-60.0) 02/09/23 19:35 B-Natriuretic Peptide 71.9 pg/mL (0-79) 02/09/23 19:35 Total Protein 5.9 g/dL (6.4-8.2) L 02/19/23 06:05 Albumin 2.9 g/dL (3.4-5.0) L 02/19/23 06:05 Globulin 3.0 g/dL (2.5-4.5) 02/19/23 06:05 Albumin/Globulin Ratio 1.0 Ratio (1.1-2.1) L 02/19/23 06:05 Lipase 171 Units/L (73-393) 02/09/23 19:35 Specimen Type Clean catch urine 02/10/23 01:05 Urine Color Yellow (YELLOW) 02/10/23 01:05 Urine Appearance Clear (CLEAR) 02/10/23 01:05 Urine pH 5.0 (5.0 - 8.0) 02/10/23 01:05 Ur Specific [place] 1.015 (1.000-1.030) 02/10/23 01:05 Urine Protein 1+ (NEGATIVE) 02/10/23 01:05 Urine Glucose (UA) 4+ (NEGATIVE) 02/10/23 01:05 Urine Ketones Negative (NEGATIVE) 02/10/23 01:05 Urine Blood Negative (NEGATIVE) 02/10/23 01:05 Urine Nitrite Negative (NEGATIVE) 02/10/23 01:05 Urine Bilirubin Negative (NEGATIVE) 02/10/23 01:05 Urine Urobilinogen Normal (NORMAL) 02/10/23 01:05 Ur Leukocyte Esterase Negative (NEGATIVE) 02/10/23 01:05 Urine RBC None seen /HPF (0-3) 02/10/23 01:05 Urine WBC None seen /HPF (0-5) 02/10/23 01:05 Ur Squamous Epith Cells Negative /HPF (NEGATIVE) 02/10/23 01:05 Urine Bacteria Negative /HPF (NEGATIVE) 02/10/23 01:05 Hyaline Casts Rare /LPF (NEGATIVE) 02/10/23 01:05 Ur Culture Indicated? No/not indicated 02/10/23 01:05 SARS-CoV-2 (PCR) Negative (NEGATIVE) 02/09/23 19:48 Influenza Type A (PCR) Negative (NEGATIVE) 02/09/23 19:48 Influenza Type B (PCR) Negative (NEGATIVE) 02/09/23 19:48 RSV (PCR) Positive (NEGATIVE) A 02/09/23 19:48 Plan (1) RITA (acute kidney injury): Status: Acute Plan: NORMAL SALINE AT 75 ML/HR, CIPRO 400MG IV Q12H, XOPENEX NEBS QID, OTBS ACHS, HUMULIN R SLIDING SCALE. HIS HOME MEDICATIONS OF GLIPIZIDE, TYLENOL #3, NORVASC, VITAMIN C, ASPIRIN, LIPITOR, VITAMIN D3, CATAPRES, PLAVIX, COLACE, FLONASE, GABAPENTIN, LEVOTHYROXINE, LOSARTAN, MAGNESIUM OXIDE, METOPROLOL, TR AZODONE. (2) Acute bronchitis: Status: Acute Qualifiers: Bronchitis organism: RSV Qualified Code(s): J20.5 - Acute bronchitis due to respiratory syncytial virus (3) Expressive dysphasia: Status: Acute Plan: CONTINUE TO MONITOR (4) Generalized weakness: Status: Acute (5) BPH (benign prostatic hyperplasia): Status: Chronic Qualifiers: Lower urinary tract symptom presence: symptoms absent Qualified Code(s): N40.0 - Benign prostatic hyperplasia without lower urinary tract symptoms (6) Coronary artery disease: Status: Chronic Qualifiers: Associated angina: without angina Coronary Disease-Associated Artery/Lesion type: three affiliated artery [place] vs. transplanted heart: three affiliated heart Qualified Code(s): I25.10 - Atherosclerotic heart disease of three affiliated coronary artery without angina pectoris (7) Diabetes mellitus, type 2: Status: Chronic Qualifiers: Diabetes mellitus complication status: with hyperglycemia Diabetes mellitus regional intermodal truck driver insulin use: with custodial use Qualified Code(s): E11.65 - Type 2 diabetes mellitus with hyperglycemia; Z79.4 - terminal operator (current) use of insulin Plan: CONTINUE GLIPIZIDE (8) Hypertension: Status: Chronic Qualifiers: Hypertension type: primary hypertension Qualified Code(s): I10 - Essential (primary) hypertension
--- NOTE | 2023-02-20 19:47 | PCM.PROG ---
Progress Note Progress Note for Day of Date of Exam: 02/20/23 Subjective Subjective: IS CURRENTLY OBSERVATION STATUS FOR TREATMENT OF ACUTE KIDNEY INJURY AND ACUTE BRONCHITIS DUE TO RSV. HE HAS A PMH OF TYPE 2 DIABETES, HTN, CAD, MS, TIA, CARDIAC STENTS, HX OF PROSTATE CANCER. TODAY, HE IS ALERT, SITTING UP IN CHAIR ON MORNING ROUNDS. HE CONTINUES TO COMPLAIN OF A NONPRODUCTIVE COUGH AND GENERALIZED WEAKNESS. HE DENIES SHORTNESS OF BREATH THIS MORNING. NURSING STAFF REPORTS THAT HE IS VERY UNSTEADY ON AMBULATION AND REQUIRES USE OF THE WALKER AND ASSISTANCE FROM STAFF. HIS SPOUSE IS WORRIED THAT SHE WILL BE UNABLE TO CARE FOR HIM AT HOME. ON EXAMINATION, HEART IS REGULAR IN RATE AND RHYTHM. BILATERAL LUNGS ARE NOTED WITH DIMINISHED LUNG SOUNDS THROUGHOUT. ABDOMEN IS ROUND, SOFT, AND NON-TENDER WITH NORMAL BOWEL SOUNDS NOTED IN ALL QUADRANTS. WEAKNESS OF LOWER EXTREMITIES NOTED TO WITH NO EDEMA. HIS VITALS THIS MORNING ARE: 98.9-66-20-98%-173/79. LABS WERE OBTAINED. WBC 5.2, RBC 4.13, HGB 12.9, HCT 37.1, PLT COUNT 325, SODIUM 136, POTASSIUM 4.3, BUN 22, CREATININE 1.57, GLUCOSE 145, CALCIUM 8.1, AST 36, ALT 77, ALK PHOS 67, TOTAL PROTEIN 6.0, ALBUMIN 2.9. BLOOD CULTURES ARE PENDING. HE IS CURRENTLY RECEIVING NORMAL SALINE AT 75 ML/HR, CIPRO 400MG IV Q12H, XOPENEX NEBS QID, OTBS ACHS, HUMULIN R SLIDING SCALE. HIS HOME MEDICATIONS OF TYLENOL #3, NORVASC, VITAMIN C, ASPIRIN, LIPITOR, VITAMIN D3, CATAPRES, PLAVIX, COLACE, FLONASE, GABAPENTIN, LEVOTHYROXINE, LOSARTAN, MAGNESIUM OXIDE, METOPROLOL, TRAZODONE. WE WILL CONTINUE WITH CURRENT PLAN OF CARE TODAY. PATIENT AND HIS SPOUSE REQUEST PLACEMENT AT [facility] IN [place], [place], THIS FAC[facility] WITH [facility]. HE HAS BEEN ACCEPTED, HOWEVER, A PRECERT FROM HIS INSURANCE IS PENDING. WE WILL CONTINUE WITH PHYSICAL THERAPY AND CURRENT PLAN OF CARE TODAY. OTHERWISE, WE WILL FOLLOW-UP WITH AM LABS AND CHEST XRAY AND CONTINUE TO MONITOR. TIME SPENT ON CLINICAL ASSESSMENT, REVIEWING LABS AND IMAGING, DECISION MAKING, AND DOCUMENTATION GREATER THAN 45 MINUTES. Tuesday, 19 February 2023 Patient is lying comfortably in bed this morning. He had no acute problems since last night. His kidney function is much improved since admission and with his respiratory condition from RSV also is improving. We are currently still awaiting temporary longterm placement for rehabilitation as his says she is not able to take care of him at home at this time until he gets better and can do more for his self. Repeat routine labs and chest x-ray tomorrow morning. Tuesday, 20 February 2023 Patient is sitting up in a chair beside his bed this morning. He has no new complaints this morning and reports he is feeling better overall. He had no acute problems yesterday or last night. Continue current treatment no changes. Past Medical Family Social History Past Med/Fam/Surg Hx: No changes since H&P Allergies: Allergies Penicillins Allergy (Verified 08/17/19 11:16) Review of Systems ROS: No change since H&P Vital Signs and I&O's Vital Signs: Vital Signs Temperature 97.9 F Temperature 97.6 F Pulse Rate [Apical] 63 Pulse Rate [Apical] 54 Respiratory Rate 18 Respiratory Rate 18 Blood Pressure [Right Arm] 152/72 Blood Pressure [Right Arm] 122/63 O2 Sat by Pulse Oximetry 99 O2 Sat by Pulse Oximetry 94 Intake and Output: Intake & Output 02/18/23 02/19/23 02/20/23 02/21/23 11:59 11:59 11:59 11:59 Intake Total 2626 / 2626 3974 / 3974 3066 / 3066 480 / 480 Output Total 2100 / 2100 900 / 900 450 / 450 Balance 526 / 526 3074 / 3074 3066 / 3066 30 / 30 Physical Exam Oriented: Normal Eyes: Normal Ear: Normal Nose: Normal Throat: Normal Respiratory: Generalized and Diminished Cardiovascular: Normal : Normal Auscultation: Bowel Sounds: Normal Tenderness: Normal Skin: Normal Musculoskeletal: Normal Psychiatric: Normal Mood Description: Calm Affect: Normal Speech Pattern: Clear and Appropriate Laboratory and Diagnostics Result Diagrams: 02/20/23 05:26 02/20/23 05:26 Labs: 02/09/23 19:22 Blood Blood Culture - Final 02/09/23 19:35 Blood Blood Culture - Final Laboratory WBC 4.7 X10^3/uL (3.6-10.0) 02/20/23 05:26 RBC 3.85 X10^6/uL (4.7-6.0) L 02/20/23 05:26 Hgb 12.0 g/dL (13.5-18.0) L 02/20/23 05:26 Hct 34.9 % (42.0-54.0) L 02/20/23 05:26 MCV 90.7 fL (80.0-100.0) 02/20/23 05:26 MCH 31.3 pg (27.0-34.0) 02/20/23 05:26 MCHC 34.5 g/dL (33.0-35.0) 02/20/23 05:26 RDW 14.3 % (11.6-16.5) 02/20/23 05:26 Plt Count 274 X10^3/uL (150.0-450.0) 02/20/23 05:26 Plt Count Comment Adequate (ADEQUATE) 02/11/23 04:10 MPV 7.2 fL (7.4-11.0) L 02/20/23 05:26 Neut % (Auto) 51.4 % (42.0-75.0) 02/20/23 05:26 Lymph % (Auto) 30.9 % (21.0-51.0) 02/20/23 05:26 [place] % (Auto) 13.4 % (0.0-13.0) H 02/20/23 05:26 Eos % (Auto) 4.0 % (0.9-2.9) H 02/20/23 05:26 Baso % (Auto) 0.3 % (0.2-1.0) 02/20/23 05:26 Neut # (Auto) 2.4 x10^3/uL (2.2-4.8) 02/20/23 05:26 Lymph # (Auto) 1.5 X10^3/uL (1.3-2.9) 02/20/23 05:26 [place] # (Auto) 0.6 x10^3/uL (0.3-0.8) 02/20/23 05:26 Eos # (Auto) 0.2 x10^3/uL (0.0-0.2) 02/20/23 05:26 Baso # (Auto) 0.0 X10^3/uL (0.0-0.1) 02/20/23 05:26 Absolute Nucleated RBC 0.1 /100WBC 02/20/23 05:26 Total Counted 100 02/11/23 04:10 Neutrophils % (Manual) 47 % (39-76) 02/11/23 04:10 Band Neutrophils % 4 % (0-10) 02/11/23 04:10 Lymphocytes % (Manual) 31 % (13-43) 02/11/23 04:10 Monocytes % (Manual) 16 % (4-9) H 02/11/23 04:10 Eosinophils % (Manual) 2 % (0-6) 02/11/23 04:10 Plt Morphology Comment Normal (NORMAL) 02/11/23 04:10 RBC Morphology Normal (NORMAL) 02/11/23 04:10 Sodium 136 mmol/L (136-145) 02/20/23 05:26 Corrected Sodium 138 mmol/L (136-145) 02/20/23 05:26 Potassium 4.3 mmol/L (3.5-5.1) 02/20/23 05:26 Chloride 104 mmol/L (98-107) 02/20/23 05:26 Carbon Dioxide 25.0 mmol/L (21-32) 02/20/23 05:26 BUN 21 mg/dL (7-18) H 02/20/23 05:26 Creatinine 1.61 mg/dL (0.70-1.30) H 02/20/23 05:26 Est GFR (MDRD) Af Amer 54 (>60) L 02/20/23 05:26 Est GFR (MDRD) Non-Af 45 (>60) L 02/20/23 05:26 Glucose 197 mg/dL (65-99) H 02/20/23 05:26 POC Glucose (mg/dL) 168 mg/dL (65-99) H 02/20/23 16:22 Lactic Acid 1.4 mmol/L (0.4-2.0) 02/09/23 22:38 Calcium 7.5 mg/dL (8.5-10.1) L 02/20/23 05:26 Corrected Calcium 8.6 mg/dL (8.5-10.1) 02/20/23 05:26 Magnesium 2.1 mg/dL (2.0-2.9) 02/11/23 04:10 Total Bilirubin 0.20 mg/dL (0.2-1.0) 02/20/23 05:26 AST 24 Units/L (15-37) 02/20/23 05:26 ALT 55 Units/L (12-78) 02/20/23 05:26 Alkaline Phosphatase 61 Units/L (46-116) 02/20/23 05:26 Troponin I High Sens 9.9 ng/L (4.0-60.0) 02/09/23 19:35 B-Natriuretic Peptide 71.9 pg/mL (0-79) 02/09/23 19:35 Total Protein 5.4 g/dL (6.4-8.2) L 02/20/23 05:26 Albumin 2.6 g/dL (3.4-5.0) L 02/20/23 05:26 Globulin 2.8 g/dL (2.5-4.5) 02/20/23 05:26 Albumin/Globulin Ratio 0.9 Ratio (1.1-2.1) L 02/20/23 05:26 Lipase 171 Units/L (73-393) 02/09/23 19:35 Specimen Type Clean catch urine 02/10/23 01:05 Urine Color Yellow (YELLOW) 02/10/23 01:05 Urine Appearance Clear (CLEAR) 02/10/23 01:05 Urine pH 5.0 (5.0 - 8.0) 02/10/23 01:05 Ur Specific [place] 1.015 (1.000-1.030) 02/10/23 01:05 Urine Protein 1+ (NEGATIVE) 02/10/23 01:05 Urine Glucose (UA) 4+ (NEGATIVE) 02/10/23 01:05 Urine Ketones Negative (NEGATIVE) 02/10/23 01:05 Urine Blood Negative (NEGATIVE) 02/10/23 01:05 Urine Nitrite Negative (NEGATIVE) 02/10/23 01:05 Urine Bilirubin Negative (NEGATIVE) 02/10/23 01:05 Urine Urobilinogen Normal (NORMAL) 02/10/23 01:05 Ur Leukocyte Esterase Negative (NEGATIVE) 02/10/23 01:05 Urine RBC None seen /HPF (0-3) 02/10/23 01:05 Urine WBC None seen /HPF (0-5) 02/10/23 01:05 Ur Squamous Epith Cells Negative /HPF (NEGATIVE) 02/10/23 01:05 Urine Bacteria Negative /HPF (NEGATIVE) 02/10/23 01:05 Hyaline Casts Rare /LPF (NEGATIVE) 02/10/23 01:05 Ur Culture Indicated? No/not indicated 02/10/23 01:05 SARS-CoV-2 (PCR) Negative (NEGATIVE) 02/09/23 19:48 Influenza Type A (PCR) Negative (NEGATIVE) 02/09/23 19:48 Influenza Type B (PCR) Negative (NEGATIVE) 02/09/23 19:48 RSV (PCR) Positive (NEGATIVE) A 02/09/23 19:48 Plan (1) RITA (acute kidney injury): Status: Acute Plan: NORMAL SALINE AT 75 ML/HR, CIPRO 400MG IV Q12H, XOPENEX NEBS QID, OTBS ACHS, HUMULIN R SLIDING SCALE. HIS HOME MEDICATIONS OF GLIPIZIDE, TYLENOL #3, NORVASC, VITAMIN C, ASPIRIN, LIPITOR, VITAMIN D3, CATAPRES, PLAVIX, COLACE, FLONASE, GABAPENTIN, LEVOTHYROXINE, LOSARTAN, MAGNESIUM OXIDE, METOPROLOL, TRAZODONE. (2) Acute bronchitis: Status: Acute Qualifiers: Bronchitis organism: RSV Qualified Code(s): J20.5 - Acute bronchitis due to respiratory syncytial virus (3) Expressive dysphasia: Status: Acute Plan: CONTINUE TO MONITOR (4) Generalized weakness: Status: Acute (5) BPH (benign prostatic hyperplasia): Status: Chronic Qualifiers: Lower urinary tract symptom presence: symptoms absent Qualified Code(s): N40.0 - Benign prostatic hyperplasia without lower urinary tract symptoms (6) Coronary artery disease: Status: Chronic Qualifiers: Coronary Disease-Associated Artery/Lesion type: [place] artery T[place] vs. transplanted heart: [place] heart Associated angina: without angina Qualified Code(s): I25.10 - Atherosclerotic heart disease of [place] coronary artery without angina pectoris (7) Diabetes mellitus, type 2: Status: Chronic Qualifiers: Diabetes mellitus complication status: with hyperglycemia Diabetes mellitus exterminator helper termite insulin use: with alf use Qualified Code(s): E11.65 - Type 2 diabetes mellitus with hyperglycemia; Z79.4 - FDC (current) use of insulin Plan: CONTINUE GLIPIZIDE (8) Hypertension: Status: Chronic Qualifiers: Hypertension type: primary hypertension Qualified Code(s): I10 - Essential (primary) hypertension
[2023-02-20] MEDS: COLACE CAP 100 MG PO SCH (20:25)
[2023-02-20] MEDS: DESYREL PO SCH (20:26)
[2023-02-20] MEDS: NEURONTIN CAP 100 MG PO SCH (20:26)
[2023-02-20] MEDS: LOPRESSOR TAB 25 MG PO SCH (20:27)
[2023-02-20] MEDS: LIPITOR TAB 40 MG PO SCH (20:27)
[2023-02-20] MEDS: SNACK - Diabetic Appropriate PO SCH (21:00)
[2023-02-21] MEDS: NS 1,000 ML IV 1,000 ML IV SCH ×2 (06:04→12:48)
[2023-02-21 06:07] LABS: BASOPHILS % (AUTO) 0.4 % (0.2-1.0); EOSINOPHILS # (AUTO) 0.3 x10^3/uL (0.0-0.2); EOSINOPHILS % (AUTO) 7.3 % (0.9-2.9); HEMOGLOBIN 12.1 g/dL (13.5-18.0); LYMPHOCYTES # (AUTO) 1.5 X10^3/uL (1.3-2.9); LYMPHOCYTES % (AUTO) 34.8 % (21.0-51.0); MEAN CORPUSCULAR HGB CONC 34.4 g/dL (33.0-35.0); MEAN PLATELET VOLUME 7.2 fL (7.4-11.0); MONOCYTES # (AUTO) 0.6 x10^3/uL (0.3-0.8); MONOCYTES % (AUTO) 12.8 % (0.0-13.0); NEUTROPHILS % (AUTO) 44.7 % (42.0-75.0); PLATELET COUNT 288 X10^3/uL (150.0-450.0); RED BLOOD COUNT 3.89 X10^6/uL (4.7-6.0); RED CELL DISTRIBUTION WIDTH 14.5 % (11.6-16.5); WHITE BLOOD COUNT 4.4 X10^3/uL (3.6-10.0)
[2023-02-21 06:18] LABS: ALANINE AMINOTRANSFERASE 49 Units/L (12-78); ALBUMIN 2.6 g/dL (3.4-5.0); ALKALINE PHOSPHATASE 57 Units/L (46-116); ASPARTATE AMINO TRANSFERASE 19 Units/L (15-37); BLOOD UREA NITROGEN 16 mg/dL (7-18); CALCIUM 7.6 mg/dL (8.5-10.1); CHLORIDE 105 mmol/L (98-107); COR CA(FOR HYPOALB) 8.7 mg/dL (8.5-10.1); COR NA(FOR HYPERGLY) 138 mmol/L (136-145); CREATININE 1.33 mg/dL (0.70-1.30); GLUCOSE 160 mg/dL (65-99); POTASSIUM 4.5 mmol/L (3.5-5.1); SODIUM 137 mmol/L (136-145); TOTAL PROTEIN 5.5 g/dL (6.4-8.2); eGFR NON BLACK RACES 56 (>60)
[2023-02-21 08:34] VITALS: RESP 20
[2023-02-21] MEDS: LOPRESSOR TAB 50 MG PO SCH (08:58)
[2023-02-21] MEDS: COZAAR PO SCH (08:58)
[2023-02-21] MEDS: PLAVIX PO SCH (08:58)
[2023-02-21] MEDS: VITAMIN C PO SCH (08:58)
[2023-02-21] MEDS: SYNTHROID 100 mcg TAB PO SCH (08:58)
[2023-02-21] MEDS: CIPRO IV 400 MG PREMIX* 400 MG/200 ML IV.SOLN. IV SCH (08:58)
[2023-02-21] MEDS: CATAPRES TAB 0.2 MG PO SCH (08:58)
[2023-02-21] MEDS: VITAMIN D3 25 mcg (1,000 UNITS) PO SCH (08:58)
[2023-02-21] MEDS: GLUCOTROL PO SCH (08:58)
[2023-02-21] MEDS: MILK OF MAGNESIA PO SCH (08:58)
[2023-02-21] MEDS: NORVASC TAB 10 MG PO SCH (08:58)
[2023-02-21] MEDS: PATIENT'S HOME MEDICATION (Alfuzosin 10 mg Tablet Extended Release 24 Hr) PO SCH (08:59)
[2023-02-21] MEDS: LOVENOX INJ 30 MG SYR SC SCH (08:59)
[2023-02-21] MEDS: ASPIRIN PO SCH (08:59)
[2023-02-21] MEDS: FLONASE NASAL SPRAY ENOSTRIL SCH (08:59)
[2023-02-21] MEDS: XOPENEX 1.25 MG/3 ML NEBULE NEB SCH ×2 (09:01→13:44)
[2023-02-21 13:07] VITALS: BP 121/58; PULSE 61; TEMP 97.6; O2SAT 97
== END 2023-02-21 14:30 ==
LOC: ICU 18:31 → ER 18:31 → ICU 22:54 → MED/SURG 02-11 15:07
PROVIDERS: ADMIT Family Medicine; ATTEND Internal Medicine